=== PATIENT | male | born 1930 | race Caucasian/White ===

== ENCOUNTER → 2016-06-21 | Day surgery (SDC) | payer BC ==
[2016-06-14 07:35] VITALS: BMI 24.0
[~2016-06-21] VITALS: Ht 177.8 cm; Wt 77.3 kg
[~2016-06-21] MED LIST: ASPCH81 PO; CHOL100010 PO; LIDOCAINE HCL 2% 2 ML VIAL (20MG/ML) ONE; METO25TA3 PO; MIDAZOLAM HCL 1 MG/ML 2ML VIAL ONE; ONDANSETRON INJ 2 MG/ML 2 ML VIAL ONE; PRLSR20 PO; PROPOFOL IV EMULSION 10 MG/ML 20 ML VIAL IV ONE; PRVC10 PO; SODIUM CHLORIDE 0.9% 500ML 500 ML IV ONE
[2016-06-21 11:11] VITALS: Ht 177.8 cm; Wt 77.3 kg
--- NOTE | 2016-06-21 11:22 | Endo History and Physical ---
History & Physical Date of Service: Jun 21, 2016. Chief Complaint: change in bowel habits Referring Physician: Dr. Corona History of Present Illness 86 yo CM who presents for colonoscopy secondary to change in bowel habits. Past Surgical History Hx Cardiac Surgery: Yes (HEART CATH X 2 (1 STENT PLACED)) Hx Internal Defibrillator: No Hx Pacemaker: No Hx Abdominal Surgery: No Hx of Implantable Prosthesis: No Hx Post-Op Nausea and Vomiting: No Hx Cancer Surgery: No Hx Thoracic Surgery: No Hx Orthopedic: Yes (RT INDEX FINGER AMPUTATION (INJURY), LEFT KNEE ARTHROSCOPY , RT HAND) Hx Urinary Tract Surgery: No Family History Colon CA Social History Smoking Status: Former Smoker Hx Substance Use: No Hx Alcohol Use: Yes (1 BEER DAILY) Allergies Coded Allergies: No Known Allergies (Verified , 06/14/16) Current Medications Reported Home Medications Medications Dose Route/Sig Max Daily Dose Days Date Category Prilosec (Omeprazole) 20 Mg Capcr 20 Mg PO QAM 06/14/16 Reported Vitamin D (Cholecalciferol) 1,000 Unit Tab 1 Tab PO QAM 06/14/16 Reported Pravastatin Sodium (Pravastatin Sod) 10 Mg Tab 1 Tab PO HS 06/14/16 Reported Toprol-Xl (Metoprolol Succinate) 25 Mg Tabcr 25 Mg PO QAM 06/14/16 Reported Aspirin Tab-Chewable * (Aspirin) 81 Mg Chew 81 Mg PO QAM 07/06/10 Reported Vital Signs Weight (Kilograms): 77.27 Height (Feet): 5 Height (Inches): 10 Physical Exam General Appearance: WD/WN, no apparent distress Respiratory/Chest: Auscultation: breath sounds normal Cardiovascular: Heart Auscultation: RRR Abdomen: Bowel Sounds: normal Inspection & Palpation: soft, non-distended, no tenderness, guarding & rebound Assessment and Plan Assessment: 86 yo CM who presents for colonoscopy secondary to change in bowel habits. Plan: Proceed with colonoscopy.
--- NOTE | 2016-06-21 12:28 | Discharge Instructions ---
Endoscopy Patient Instructions Date / Procedure(s) Performed Jun 21, 2016. Colonoscopy Allergy Information Coded Allergies: No Known Allergies (Verified , 06/14/16) Discharge Date / Findings Jun 21, 2016. Colon polyp Diverticulosis Internal hemorrhoids Medication Instructions OK to resume all medications today as prescribed Reported Home Medications Medications Dose Route/Sig Max Daily Dose Days Date Category Prilosec (Omeprazole) 20 Mg Capcr 20 Mg PO QAM 06/14/16 Reported Vitamin D (Cholecalciferol) 1,000 Unit Tab 1 Tab PO QAM 06/14/16 Reported Pravastatin Sodium (Pravastatin Sod) 10 Mg Tab 1 Tab PO HS 06/14/16 Reported Toprol-Xl (Metoprolol Succinate) 25 Mg Tabcr 25 Mg PO QAM 06/14/16 Reported Aspirin Tab-Chewable * (Aspirin) 81 Mg Chew 81 Mg PO QAM 07/06/10 Reported Provider Instructions Activity Restrictions - No exercising or heavy lifting for 24 hours. - Do not drink alcohol the day of the procedure. - Do not drive a car or operate machinery until the day after the procedure. - Do not make any important decisions or sign important papers in 24 hours after the procedure. Following Day: - Return to full activity which may include returning to work/school. Diet Start your diet with liquids and light foods (jello, soup, juice, toast). Then eat your usual diet if not nauseated. Treatment For Common After Affects For mild abdominal pain, bloating, or excessive gas: - Rest - Eat lightly - Lie on right side Follow-Up Information Follow-up with Dr. Corona as scheduled Anesthesia Information What You Should Know You have had a procedure that required some medicine to reduce anxiety and discomfort. This treatment is called moderate sedation. After receiving the treatment, you may be sleepy, but you will be able to breathe on your own. The effects of the treatment may last for several hours. Follow these instructions along with Activity/Diet recommendations noted above: * Do NOT do anything where dizziness or clumsiness would be dangerous. * Rest quietly at home today, then you can be up and about tomorrow. * Have a responsible person stay with you the rest of today. * You may have had an I.V. today. If so, you may take the dressing off later today. Recommendations Call your doctor if: * Trouble breathing * Continuous vomiting for more than 24 hours * Temperature above 101 degrees * Severe abdominal pain or bloating * Pain not relieved by pain medicine ordered * There is increased drainage or redness from any incision * A large amount of rectal bleeding greater than 2-3 tablespoons. (If you had a polyp/s removed or have hemorrhoids, a small amount of blood - from the rectum is to be expected.) * You have any unanswered questions or concerns. IN THE EVENT OF A SERIOUS EMERGENCY, GO TO THE NEAREST EMERGENCY ROOM Your discharge instructions were prepared by provider Víctor Osuna. Patient Instructions Signature Page Hesham Jo Patient (or Guardian) Signature/Date: I have read and understand the instructions given to me by my caregivers. Caregiver/RN/Doctor Signature/Date: The above-named patient and/or guardian has received patient instructions on this date. + Original Patient Signature Page (only) stays with chart. Please make copy for patient.
--- NOTE | 2016-06-21 12:42 | GI REPORT ---
Procedure Date: 06/21/2016 11:48 AM Procedure: Colonoscopy Indications: Change in bowel habits Medicines: Monitored Anesthesia Care Complications: No immediate complications. Estimated Blood Loss: Estimated blood loss: none. Procedure: Pre-Anesthesia Assessment: - Prior to the procedure, a History and Physical was performed, and patient medications and allergies were reviewed. The patient's tolerance of previous anesthesia was also reviewed. The risks and benefits of the procedure and the sedation options and risks were discussed with the patient. All questions were answered, and informed consent was obtained. Prior Anticoagulants: The patient has taken aspirin, last dose was 2 days prior to procedure. ASA Grade Assessment: III - A patient with severe systemic disease. After reviewing the risks and benefits, the patient was deemed in satisfactory condition to undergo the procedure. After I obtained informed consent, the scope was passed under direct vision. Throughout the procedure, the patient's blood pressure, pulse, and oxygen saturations were monitored continuously. The Scope was introduced through the anus and advanced to the cecum, identified by appendiceal orifice and ileocecal valve. The colonoscopy was performed without difficulty. The patient tolerated the procedure well. The quality of the bowel preparation was good. The ileocecal valve, appendiceal orifice, and rectum were photographed. Findings: A 6 mm polyp was found in the transverse colon. The polyp was sessile. The polyp was removed with a hot snare. Resection and retrieval were complete. Multiple small-mouthed diverticula were found in the sigmoid colon. Non-bleeding internal hemorrhoids were found during retroflexion. The hemorrhoids were small. Impression: - One 6 mm polyp in the transverse colon, removed with a hot snare. Resected and retrieved. - Diverticulosis in the sigmoid colon. - Non-bleeding internal hemorrhoids. Recommendation: - Resume previous diet. - Continue present medications. - Await pathology results. - Repeat colonoscopy for surveillance based on pathology results. - Return to primary care physician as previously scheduled. Víctor Osuna, DO 06/21/2016 12:42:01 PM This report has been signed electronically. Note Initiated On: 06/21/2016 11:48 AM I attest to the content of the Intraoperative Record and orders documented therein, exceptions below
[2016-06-21 13:09] VITALS: BP 143/77; PULSE 56; O2SAT 97
--- NOTE | 2016-06-21 13:57 | Anesthesiology Progress Note ---
Anesthesia Post Op Note Date & Time Jun 21, 2016 at 13:57 Vital Signs Pain Intensity: 0 Vital Signs Past 12 Hours Date Time Temp Pulse Resp B/P Pulse Ox O2 Delivery O2 Flow Rate FiO2 06/21/16 13:09 56 20 143/77 97 Room Air 06/21/16 12:52 54 20 120/68 97 Room Air 06/21/16 12:35 64 20 95/63 98 Room Air 06/21/16 11:20 36.5 70 20 140/87 98 Room Air Notes Mental Status: alert / awake / arousable, participated in evaluation Pt Amnestic to Procedure: Yes Nausea / Vomiting: adequately controlled Pain: adequately controlled Airway Patency, RR, SpO2: stable & adequate BP & HR: stable & adequate Hydration State: stable & adequate Anesthetic Complications: no major complications apparent
== END | disposition home or self-care (01) ==
LOC: C.GI 10:55
PROVIDERS: ATTEND Internal Medicine
DX: R19.4 Change in bowel habit (principal); D12.3 Benign neoplasm of transverse colon; K57.30 Diverticulosis of large intestine without perforation or abscess without bleeding; K64.8 Other hemorrhoids; Z80.0 Family history of malignant neoplasm of digestive organs; Z95.5 Presence of coronary angioplasty implant and graft; Z98.890 Other specified postprocedural states; Z87.891 Personal history of nicotine dependence; Z79.82 Long term (current) use of aspirin

== ENCOUNTER → 2016-09-06 | Outpatient (CLI) | payer BC ==
[~2016-09-06] MED LIST changes: -LIDOCAINE HCL 2% 2 ML VIAL (20MG/ML) ONE; -MIDAZOLAM HCL 1 MG/ML 2ML VIAL ONE; -ONDANSETRON INJ 2 MG/ML 2 ML VIAL ONE; -PROPOFOL IV EMULSION 10 MG/ML 20 ML VIAL IV ONE; -SODIUM CHLORIDE 0.9% 500ML 500 ML IV ONE
[2016-09-06 12:19] LABS: BASO % 0.3 %; BASO ABS # 0.02 K/uL (0-0.2); COMPLETE YES; EOS % 3.1 %; HEMATOCRIT 45.1 % (42-52); IG% 0.2 %; LYMPH % 33.8 %; LYMPH ABS # 1.97 K/uL (1.2-3.4); MEAN CELL VOLUME 98.3 fL (80-100); MEAN CORPUSCULAR HGB CONC 32.6 g/dl (32-36); MEAN PLATELET VOLUME 10.4 fL (7.4-10.4); MONO % 11.5 %; NEUT % 51.1 %; PLATELET COUNT 126 K/uL (130-400); RED BLOOD COUNT 4.59 M/uL (4.7-6.1); WHITE BLOOD COUNT 5.82 K/uL (4.8-10.8)
[2016-09-06 12:33] LABS: URINE APPEARANCE CLEAR (CLEAR); URINE BILIRUBIN NEG (NEG); URINE COLOR YELLOW; URINE NITRITE NEG (NEG); URINE SPECIFIC GRAVITY 1.017 (1.000-1.030); UROBILINOGEN NEG (NEG); ZZUR CULT IF INDIC CLEAN CATCH NO
[2016-09-06 12:39] LABS: MANUAL MICROSCOPIC REQUIRED? NO; REVIEW REQ? NO
[2016-09-06 13:19] LABS: ALT/SGPT 20 U/L (12-78); AST/SGOT 15 U/L (15-37); BLOOD UREA NITROGEN 19 mg/dl (7-18); BUN/CREATININE RATIO 20.7 (10-20); CALCIUM 8.6 mg/dl (8.5-10.1); CARBON DIOXIDE 27 mmol/L (21-32); CHLORIDE 109 mmol/L (98-107); CHOLESTEROL 157 mg/dl (0-200); CREATININE 0.93 mg/dl (0.60-1.40); GLUCOSE 92 mg/dl (70-99); SODIUM 144 mmol/L (136-145)
[2016-09-06 13:31] LABS: ALB/GLOB RATIO 1.1 (0.9-2); ALKALINE PHOSPHATASE 68 U/L (45-117); HDL CHOLESTEROL 53 mg/dl; LDL CHOLESTEROL CALCULATED 90 mg/dl; TRIGLYCERIDES 69 mg/dl (0-150); VERY LOW DENSITY LIPOPROT CALC 14 mg/dl
--- NOTE | 2016-09-11 10:32 | CODING QUERY MEDICAL NECESSITY ---
SUPPORTING DIAGNOSIS NEEDED Dr. Corona, A supporting diagnosis is required for the test/procedure performed on this patient in order for us to be reimbursed by the patient's insurance. Please provide a supporting diagnosis for the following test/procedure listed below next to the test name along with your signature. *If there is no additional diagnosis for this patient that would support the following test/procedure please document that below next to the test/procedure. Test(s)/Procedure(s) that require a supporting diagnosis: * ([id number]) VITAMIN D ASSAY DIAGNOSIS: DATE OF SERVICE: 09/06/16 Provider Signature: Date: Thank you Sriram Schultz [facility] Information Management Once completed, please kindly fax back to [phone] For questions please call [phone]
== END | disposition home or self-care (01) ==
LOC: C.LABBFT 07:50
PROVIDERS: ATTEND Internal Medicine
DX: R41.3 Other amnesia (principal); I25.10 Atherosclerotic heart disease of native coronary artery without angina pectoris

== ENCOUNTER 2017-07-31 04:53 | Day surgery (SDC) | payer BC ==
[2017-07-20 08:52] VITALS: BMI 25.0
--- NOTE | 2017-07-20 09:25 | PAT Medication Instructions ---
Service Date Jul 20, 2017. Current Home Medication List Aspirin (Aspirin Ec), 81 MG PO BID Cholecalciferol (Vitamin D), 2,000 UNITS PO QAM Fish Oil (Durham-3), 1 CAP PO QAM Lutein-Zeaxanthin (Lutein), 1 TAB PO QAM Metoprolol Succ (Toprol Xl) (Toprol-Xl), 25 MG PO QAM Mometasone Furoate (Nasal) (Mometasone Furoate), 2 SPRAYS INTNAS QAM Omeprazole (Prilosec), 20 MG PO QAM PRN for PRN Pravastatin Sod (Pravastatin Sodium), 1 TAB PO HS Medication Instructions For Your Scheduled Surgery -Check with your surgeon and shade maker for instructions for: Aspirin (Aspirin Ec), 81 MG PO BID - Hold the following medications starting tomorrow: Fish Oil (Durham-3), 1 CAP PO QAM Lutein-Zeaxanthin (Lutein), 1 TAB PO QAM - Hold the following medications the morning of surgery: Cholecalciferol (Vitamin D), 2,000 UNITS PO QAM - Take the following medications the morning of surgery with a sip of water: Metoprolol Succ (Toprol Xl) (Toprol-Xl), 25 MG PO QAM Mometasone Furoate (Nasal) (Mometasone Furoate), 2 SPRAYS INTNAS QAM Omeprazole (Prilosec), 20 MG PO QAM PRN for PRN (if needed) - Take the following medications as scheduled the night before surgery: Omeprazole (Prilosec), 20 MG PO QAM PRN for PRN (if needed) Pravastatin Sod (Pravastatin Sodium), 1 TAB PO HS If you have any questions please call us at [phone] or [phone] or [phone]
--- NOTE | 2017-07-20 09:59 | DIAGNOSTIC IMAGING REPORT ---
TWO VIEW CHEST CLINICAL HISTORY: Preoperative examination. FINDINGS: PA and lateral chest radiographs are obtained. No prior studies are available for comparison at the time of dictation. The PA view is degraded by patient rotation The heart is mildly enlarged and there is atherosclerotic calcification of the thoracic aorta. Emphysematous changes suspected. Interstitial thickening is likely chronic. There is bibasilar atelectasis. No airspace consolidation or pleural effusion is identified. There is no pneumothorax. The skeletal structures are osteopenic. The bony thorax appears intact. Degenerative change is seen throughout the thoracic spine. There are healed left-sided rib fractures. IMPRESSION: Cardiomegaly and suspect emphysema. There is no acute cardiopulmonary abnormality. Electronically signed by: Layton Javier M.D. 07/20/2017 9:58 AM Dictated Date/Time: 07/20/2017 9:56 AM
[2017-07-20 10:07] LABS: BASO % 0.4 %; BASO ABS # 0.02 K/uL (0-0.2); EOS % 3.5 %; EOS ABS # 0.17 K/uL (0-0.5); HEMATOCRIT 42.8 % (42-52); HEMOGLOBIN 14.5 g/dL (14.0-18.0); LYMPH % 30.2 %; LYMPH ABS # 1.46 K/uL (1.2-3.4); MEAN CELL VOLUME 97.7 fL (80-100); MEAN CORPUSCULAR HEMOGLOBIN 33.1 pg (25-34); MEAN CORPUSCULAR HGB CONC 33.9 g/dl (32-36); MONO % 9.9 %; MONO ABS # 0.48 K/uL (0.11-0.59); NEUT ABS # 2.71 K/uL (1.4-6.5); PLATELET COUNT 113 K/uL (130-400); RED CELL DISTRIBUTION WIDTH CV 13.9 % (11.5-14.5); RED CELL DISTRIBUTION WIDTH SD 49.6 fL (36.4-46.3); WHITE BLOOD COUNT 4.84 K/uL (4.8-10.8)
[2017-07-20 10:18] LABS: CREATININE 0.83 mg/dl (0.60-1.40)
[2017-07-20 10:19] LABS: CALCIUM 8.7 mg/dl (8.5-10.1); POTASSIUM 4.3 mmol/L (3.5-5.1)
[~2017-07-31] VITALS: Ht 177.8 cm; Wt 79.7 kg
[~2017-07-31 04:53] MED LIST changes: -ASPCH81 PO; +ASPI81TA28 PO; +LUTE15CA PO; +MOME6000 INTNAS; +OMEG10007 PO
[2017-07-31 05:50] VITALS: BP 133/70; PULSE 55; TEMP 36.5; O2SAT 97; Ht 177.8 cm; Wt 79.7 kg
[2017-07-31] MEDS ORDERED: LACTATED RINGER'S 1000ML 1,000 ML IV SCH ×2 (06:00→07:55)
[2017-07-31] MEDS ORDERED: BUPIVACAINE 0.5 % 5 MG/1 ML MPF 30ML VIAL ONE (06:30)
--- NOTE | 2017-07-31 06:30 | History & Physical Bridge Note ---
H&P Re-Evaluation Bridge Note: I have examined the patient, reviewed the History & Physical and in the interval since the performance of the History & Physical I have noted the following changes of clinical significance: No changes noted pt marked, family at bedside all questions answered
[2017-07-31] MEDS ORDERED: BACITRACIN 50000 UNIT VIAL ONE (06:32)
[2017-07-31] MEDS ORDERED: LIDOCAINE HCL 2% 2 ML VIAL (20MG/ML) ONE (06:43)
[2017-07-31] MEDS ORDERED: DEXAMETHASONE SOD INJ 4 MG/ML VIAL ONE (06:43)
[2017-07-31] MEDS ORDERED: ONDANSETRON INJ 2 MG/ML 2 ML VIAL ONE (06:43)
[2017-07-31] MEDS ORDERED: FENTANYL CITRATE INJ 50 MCG/1 ML 2 ML VIAL ONE (06:43)
[2017-07-31] MEDS ORDERED: PROPOFOL IV EMULSION 10 MG/ML 20 ML VIAL IV ONE (06:43)
[2017-07-31] MEDS ORDERED: ACETAMINOPHEN 1000 MG/100 ML IV IV ONE (06:48)
[2017-07-31] MEDS ORDERED: GLYCOPYRROLATE INJ 0.2 MG/ML VIAL ONE (07:28)
[2017-07-31] MEDS ORDERED: ATROPINE SULFATE 0.1 MG/ML 5ML SYR IV PRN (07:30)
[2017-07-31] MEDS ORDERED: EpHEDrine SULFATE INJ 50 MG/ML AMP IV PRN (07:30)
[2017-07-31] MEDS ORDERED: ONDANSETRON INJ 2 MG/ML 2 ML VIAL IV PRN ×2 (07:30→08:00)
[2017-07-31] MEDS ORDERED: FENTANYL CITRATE INJ 50 MCG/1 ML 2 ML VIAL IV PRN (07:30)
[2017-07-31] MEDS ORDERED: PHENYLEPHRINE 100MCG/ML 5ML SYR ONE (07:37)
[2017-07-31] MEDS ORDERED: EpHEDrine SULFATE 50MG/5ML SYR ONE (07:37)
--- NOTE | 2017-07-31 07:49 | [facility] Post Operative Brief Note ---
Immediate Operative Summary Operative Date Jul 31, 2017. Pre-Operative Diagnosis Left Inguinal Hernia Post-Operative Diagnosis Left Inguinal Hernia direct and lipoma cord Procedure(s) Performed Open Left Direct Inguinal Hernia Repair with Mesh, Excision Lipoma of Cord Surgeon Dr. Andrea Kidd Consumer Relations Specialist Surgeon(s) Sriram Baldwin PA-C Estimated Blood Loss 2.5ml Findings See Below direct defect and lipoma cord Specimens Permanent Solution: A.) Lipoma of the Cord Anesthesia Type General
[2017-07-31] MEDS ORDERED: OXYC-57 PO (07:57)
--- NOTE | 2017-07-31 07:58 | Discharge Instructions ---
Discharge Instructions Date of Service Jul 31, 2017. Visit Reason for Visit: Left Inguinal Hernia Discharge Discharge Diagnosis / Problem: ingunal hernia repair Discharge Goals Goal(s): Decrease discomfort Activity Recommendations Activity Limitations: as noted below Lifting Limitations: no more than 10 pounds Shower/Bathe: tomorrow Driving or Machine Use: resume 3 days after discharge Anesthesia . Post Anesthesia Instructions: If you have had General Anesthesia or IV Sedation: * Do not drive today. * Resume driving when surgeon permits. * Do not make important decisions or sign legal documents today. * Call surgeon for: 1. Temperature elevations greater than 101 degrees F. 2. Uncontrollable pain. 3. Excessive bleeding. 4. Persistent nausea and vomiting. 5. Medication intolerance (nausea, vomiting or rash). * For nausea and vomiting use only clear liquids such as: tea, soda, bouillon until nausea subsides, then gradually increase diet as tolerated. * If you have any concerns or questions, call your surgeon's office. If physician is unavailable and it is an emergency, call 911 or go to the nearest emergency room. . Instructions / Follow-Up Instructions / Follow-Up Dr. Kidd in 1-2 weeks, call [phone] if you do not already have an appt or have any questions Ice left groin off and on alternating very 20 minutes until bedtime Diet Recommendations Recommended Home Diet: no limitations Procedures Procedures Performed: Open Left Direct Inguinal Hernia Repair with Mesh, Excision Lipoma of Cord Pending Studies Studies pending at discharge: no Medical Emergencies . Who to Call and When: Medical Emergencies: If at any time you feel your situation is an emergency, please call 911 immediately. . Non-Emergent Contact Non-Emergency issues call your: Surgeon Call Non-Emergent contact if: you have a fever, temperature is above 101.5, your pain is not controlled, wound has increased redness, you have any medication questions . . "Provider Documentation" section prepared by Sriram Baldwin. .
[2017-07-31] MEDS ORDERED: MoRPHine SULFATE 4 MG/ML 1 ML CARP\\VIAL IV PRN (08:00)
[2017-07-31] MEDS ORDERED: OXYCODONE/ACETAMINOPHEN 5-325 TAB PO PRN (08:00)
--- NOTE | 2017-07-31 08:20 | OPERATIVE REPORT ---
DATE OF OPERATION: 07/31/2017 SURGEON: Andrea Kidd MD. LOGGING TRACTOR OPERATOR SWAMP: Sriram Baldwin PA-C. PREOPERATIVE DIAGNOSIS: Symptomatic left inguinal hernia. POSTOPERATIVE DIAGNOSIS: Left direct inguinal hernia, lipoma of the cord. PROCEDURE: Left direct inguinal hernia repair and excision lipoma of the cord with Marlex mesh tension free repair. SUMMARY: The patient was brought into the operating room and left lower quadrant prepped with Betadine scrubbing solution and properly draped. Systemic antibiotics were given. We used 0.5% Marcaine to infiltrate preemptively 2 fingerbreadths medial anterior superior iliac crest. Incision was made parallel that are going deep into subcutaneous tissue onto the external oblique. The external oblique was opened along the course of its fibers. The nerve identified and retracted superiorly. It was a very thin nerve. Actually with even under stress, just getting it out of the way; therefore we would divide it. At this point, we elevated the cord and its structure over a [place] drain and identified the patient had a direct hernia that we freed from the cord. Also the patient had a long lipoma of the cord, which we resected at its base, ligating with 2-0 silk. There was no indirect hernia. We used 3-0 silk to close around the internal ring to get the direct defect out of the way. Then a sheet of Marlex mesh was brought onto the field and onlayed it, sutured with 2-0 nylon to the symphysis pubis, shelving portion of the inguinal ligament, superior to conjoined tendon to reconstruct the internal ring that could only accommodate the tip of a hemostat. The cord and its structures were then closed with mesh underneath the external oblique with 3-0 interrupted silk. Hemostasis was satisfactory. More local was used infiltrating the conjoined tendon superiorly and invading the wound. 2-0 Vicryl and kassie for skin edges. Dressing was applied. The procedure was tolerated well by the patient. Estimated blood loss approximately 2 mL. The patient was taken to recovery room in good condition. I attest to the content of the Intraoperative Record and any orders documented therein. Any exception s are noted below.
[2017-07-31 08:35] VITALS: BP 145/84; PULSE 70; TEMP 36.4; O2SAT 96
--- NOTE | 2017-07-31 08:56 | Anesthesiology Progress Note ---
Anesthesia Post Op Note Date & Time Jul 31, 2017 at 08:53 Vital Signs Pain Intensity: 0 Vital Signs Past 12 Hours Date Time Temp Pulse Resp B/P (MAP) Pulse Ox O2 Delivery O2 Flow Rate FiO2 07/31/17 08:35 36.5 07/31/17 08:25 63 16 145/84 97 Room Air 07/31/17 08:15 68 16 136/83 94 Room Air 07/31/17 08:05 65 16 128/74 98 Oxymask 7 07/31/17 07:55 36.4 67 16 127/67 98 Oxymask 7 07/31/17 05:50 36.5 55 18 133/70 (91) 97 Room Air Notes Mental Status: alert / awake / arousable, participated in evaluation Pt Amnestic to Procedure: Yes Nausea / Vomiting: adequately controlled Pain: adequately controlled Airway Patency, RR, SpO2: stable & adequate BP & HR: stable & adequate Hydration State: stable & adequate Anesthetic Complications: no major complications apparent Anesthetic Complications: patient with small bruising bilaterally along the nasal corner of both eyes, left greater than right. No pain or vision changes. Suspect this may be from the eye tape utilized during the surgery. (patient also with erythema around EKG sticker sites and is probably very sensitive to adhesives.) Discussed this with the patient, his and son. Should resolve without intervention. Family provided with instructions to call PAT if bruising doesn't improve or if they have any questions or concerns. All questions answered at this time.
[2017-07-31] MEDS ORDERED: OXYCODONE/ACETAMINOPHEN 5-325 TAB ONE (09:03)
[2017-07-31 09:05] VITALS: BP 153/79; PULSE 61; TEMP 36.4; O2SAT 95
[2017-07-31 09:35] VITALS: BP 142/74; PULSE 61; TEMP 36.4; O2SAT 95
== END 2017-07-31 09:55 | disposition home or self-care (01) ==
LOC: C.ACU 04:53
PROVIDERS: ATTEND Surgery
DX: K40.90 Unilateral inguinal hernia, without obstruction or gangrene, not specified as recurrent (principal); D17.6 Benign lipomatous neoplasm of spermatic cord; I25.10 Atherosclerotic heart disease of native coronary artery without angina pectoris; K57.90 Diverticulosis of intestine, part unspecified, without perforation or abscess without bleeding; Z98.890 Other specified postprocedural states; Z90.89 Acquired absence of other organs; M19.90 Unspecified osteoarthritis, unspecified site; Z79.82 Long term (current) use of aspirin; Z79.899 Other long term (current) drug therapy; Z88.8 Allergy status to other drugs, medicaments and biological substances; Z85.828 Personal history of other malignant neoplasm of skin; Z82.3 Family history of stroke; Z82.49 Family history of ischemic heart disease and other diseases of the circulatory system

== ENCOUNTER → 2017-11-21 | Outpatient (CLI) | payer BC ==
[~2017-11-21] MED LIST changes: +OXYC-57 PO
[2017-11-21 17:19] LABS: BASO % 0.5 %; BASO ABS # 0.03 K/uL (0-0.2); EOS % 2.9 %; EOS ABS # 0.19 K/uL (0-0.5); HEMATOCRIT 43.4 % (42-52); HEMOGLOBIN 14.5 g/dL (14.0-18.0); IG# 0.01 K/uL (0.00-0.02); LYMPH % 35.4 %; LYMPH ABS # 2.34 K/uL (1.2-3.4); MEAN CELL VOLUME 98.2 fL (80-100); MEAN CORPUSCULAR HEMOGLOBIN 32.8 pg (25-34); MEAN CORPUSCULAR HGB CONC 33.4 g/dl (32-36); MEAN PLATELET VOLUME 10.7 fL (7.4-10.4); MONO % 11.6 %; MONO ABS # 0.77 K/uL (0.11-0.59); NEUT % 49.4 %; NEUT ABS # 3.27 K/uL (1.4-6.5); PLATELET COUNT 110 K/uL (130-400); RED CELL DISTRIBUTION WIDTH CV 14.1 % (11.5-14.5); RED CELL DISTRIBUTION WIDTH SD 50.8 fL (36.4-46.3); WHITE BLOOD COUNT 6.61 K/uL (4.8-10.8)
[2017-11-22 06:04] LABS: HEMOGLOBIN A1C 5.5 % (4.5-5.6)
== END | disposition home or self-care (01) ==
LOC: C.LABBFT 15:03
PROVIDERS: ATTEND Internal Medicine
DX: R73.01 Impaired fasting glucose (principal); I25.10 Atherosclerotic heart disease of native coronary artery without angina pectoris; D69.6 Thrombocytopenia, unspecified; R63.4 Abnormal weight loss

== ENCOUNTER 2018-08-03 13:47 | Inpatient (IN) ==
[2018-08-03] MEDS ORDERED: SODIUM CHLORIDE 0.9% 1000ML 250 ML IV ONE (14:20)
--- NOTE | 2018-08-03 15:07 | CT Scan Report ---
CT head/brain wo con CLINICAL HISTORY: 88 years-old Male with headache. Acute headache with nausea and confusion TECHNIQUE: Multiple axial CT images of the head were obtained without contrast. A dose lowering tech nique was utilized adhering to the principles of ALARA. CT DOSE: 537.48 mGy.cm COMPARISON: CT head 07/16/2011. FINDINGS: There is no acute intracranial hemorrhage, midline shift or hydrocephalus. There is an extensive amou nt of edema noted throughout the right parietal and temporal lobes with a possible mass adjacent to t he atria right lateral ventricle measuring up to 2.5 x 2.1 cm. Bruno-white interface appears to be pre served. Age-related involutional changes. Mild degree of white matter hypodensities are suggestive of chronic microvascular ischemic changes. Study is mildly motion degraded. The calvarium is intact. The paranasal sinuses, mastoid air cells, and middle ear cavities are clear . IMPRESSION: 1. No acute intracranial hemorrhage, midline shift or hydrocephalus. 2. Extensive edema throughout the right parietal and temporal lobes, likely vasogenic associated with a probable mass adjacent to the atria right lateral ventricle measuring up to 2.5 cm. Primary glial neoplasm is the differential of exclusion. Correlation with contrast-enhanced MRI is needed to furthe r evaluate. The above report was generated using voice recognition software. It may contain grammatical, syntax o r spelling errors. Electronically signed by: nAtwan Becerril M.D. 08/03/2018 3:06 PM
--- NOTE | 2018-08-03 15:13 | XRay Report ---
XR chest 1V portable CLINICAL HISTORY: Sepsis COMPARISON STUDY: Chest radiograph July 20, 2017. FINDINGS: Lung volumes are normal. Mild bibasilar opacities favor atelectasis. There is no evidence f or pulmonary edema. Cardiomegaly is unchanged. Mediastinal contours are stable. IMPRESSION: 1. No acute cardiomegaly findings. 2. Mild cardiomegaly without evidence for pulmonary edema. 3. Bibasilar opacities favor atelectasis. Electronically signed by: Feliciano Nguyen M.D. 08/03/2018 3:11 PM
[2018-08-03 15:29] LABS: Partial Thromboplastin Ratio 0.9; Partial Thromboplastin Time 25.1 Seconds (21.0-31.0); Prothrombin Time 10.3 Seconds (9.0-12.0)
[2018-08-03 15:33] LABS: Basophils # (auto) 0.02 K/uL (0-0.2); Basophils % (auto) 0.3 %; Eosinophils # (auto) 0.04 K/uL (0-0.5); Eosinophils % (auto) 0.6 %; Hematocrit (blood only) 46.7 % (42-52); Hemoglobin 15.9 g/dL (14.0-18.0); Immature Granulocytes # (auto) 0.01 K/uL (0.00-0.02); Immature Granulocytes % (auto) 0.2 %; Lymphocytes # (auto) 1.05 K/uL (1.2-3.4); Lymphocytes % (auto) 15.9 %; Mean Corpuscular Volume 99.4 fL (80-100); Monocytes % (auto) 7.6 %; Neutrophils % (auto) 75.4 %; Platelet Count 123 K/uL (130-400); RDW Standard Deviation 50.8 fL (36.4-46.3); White Blood Count 6.62 K/uL (4.8-10.8)
[2018-08-03 15:43] LABS: Alanine Aminotransferase 21 U/L (12-78); Albumin Level 3.8 gm/dl (3.4-5.0); Aspartate Aminotransferase 18 U/L (15-37); BUN Creatinine Ratio 17.2 (10-20); Blood Urea Nitrogen 15 mg/dl (7-18); Calcium 8.9 mg/dl (8.5-10.1); Carbon Dioxide 29 mmol/L (21-32); Chloride 104 mmol/L (98-107); Creatinine Clr Calc Pharmacy 62.1 ml/min; Est GFR (African American) 90.6; Est GFR (Non-African American) 78.1; Glucose 102 mg/dl (70-99); Sodium 137 mmol/L (136-145)
[2018-08-03] MEDS ORDERED: DEXAMETHASONE **PF** 10 MG in DEXTROSE 5% 25 ML IV STA (16:01)
[2018-08-03 16:07] LABS: Albumin Globulin Ratio 1.1 (0.9-2); Alkaline Phosphatase 75 U/L (45-117); Bilirubin,Total 0.5 mg/dl (0.2-1); Globulin 3.6 gm/dl (2.5-4.0); Total Protein 7.4 gm/dl (6.4-8.2); Troponin I < 0.015 ng/ml (0-0.045)
[2018-08-03] MEDS ORDERED: KETOROLAC TROMETHAMINE 15 MG/ML VIAL IV ONE (16:10)
[2018-08-03] MEDS ORDERED: DEXAMETHASONE **PF** INJ 10 MG/ML VIAL ONE (16:17)
--- NOTE | 2018-08-03 16:38 | Emergency Department Note ---
Entered by Mykel White acting as a scribe for Neil Jhaveri MD History of Present Illness General Chief complaint: Headache Stated complaint: HEADACHE,NAUSEA,LOST HIS 10 DAYS AGO Time Seen by Provider: 08/03/18 14:10 Source: patient and family History of Present Illness Provider complaint: Headache Onset (ago): day(s) (today around 0530) Location: head Pain Consistency: + constant Maximum Pain Intensity: 10 Quality: + other (headache) Associated symptoms: + denies other symptoms (numbness, changes in vision), + cough, + fever/chills (fever was subjective), + nausea/vomiting (+nausea, - vomiting) and + other (body aches, fatigue); no chest pain, no shortness of breath and no weakness The patient is an 88 year old male who presents to the Emergency Room with complaints of a constant headache that started around 0530 this morning when he woke up. The patient states that he felt feverish this morning and has been experiencing chills, nausea, and body aches. He also states he has had a cough and sinus drainage. He denies any numbness or weakness, chest pain, shortness of breath, or changes in vision. The patient's family states that the patient is typically very energetic and "sharp," but report that the patient has been more fatigued and slowed down over the past few days. They note that the patient has been having trouble walking and has been slow in responding verbally. The patient admits to a history of cardiac disease and family notes that the patient has a surgical history of 2 angioplasties. He denies a history of diabetes. He a lso denies being prescribed any blood thinners. Home Medications Home Medications Medication Instructions Recorded Confirmed Type aspirin 81 mg PO DAILY 08/03/18 08/03/18 History cholecalciferol (vitamin D3) 2,000 unit PO DAILY 08/03/18 08/03/18 History [Vitamin D3] lutein 6 mg PO DAILY 08/03/18 08/03/18 History metoprolol succinate 25 mg PO DAILY 08/03/18 08/03/18 History omega 8-xzl-hru-fish oil [Fish Oil] 1 cap PO DAILY 08/03/18 08/03/18 History omeprazole 20 mg PO DAILY 03/30/19 03/30/19 History pravastatin 10 mg PO HS 08/03/18 08/03/18 History Allergies Allergy/AdvReac Type Severity Reaction Status Date / Time Ndrcbie-Keo-Lqm Reductase Allergy Unknown CRESTOR,LIPITOR,ZOCOR-MUSCLE Verified 08/03/18 14:34 Inhibitor ACHES Past Med/Surg History Medical History Heart disease (Chronic) CAD (coronary artery disease) Hyperlipemia Hypertension Surgical History Stented coronary artery (Chronic) H/O angioplasty (Resolved) Family History Mother Colorectal cancer Social History Preferred Language: Armenian Communication Ability: Effective Communication Spec Required: No Beliefs That Will Affect Care: None Current Living Situation: Alone Other Information That Helps Us Care for You: No Feels Safe at Home: Yes Safety Concerns: Feels Safe At This Time Smoking Status: Former smoker Hx Alcohol Use: Yes Hx Substance Use: No Review of Systems See HPI for pertinent positives & negatives. and A total of 10 systems reviewed and were otherwise negative Physical Exam Vital Signs Vital Signs - 24 hr 08/03/18 13:48 08/03/18 14:18 08/03/18 14:25 Temperature 36.5 C Temperature Source Oral Sepsis Recent Fever Within 48 Hours No Sepsis New/Unexplained Change in Mental Status No Sepsis Action Taken by Nursing No Action Required Pulse Rate 62 Pulse Rate [Finger] 62 Pulse Rhythm [Finger] Pulse Strength [Finger] Respiratory Rate 20 14 Respiratory Effort / Characteristics Respiratory Depth Respiratory Pattern Blood Pressure Blood Pressure [Right Arm] 164/90 H Blood Pressure Mean [Right Arm] 114 Blood Pressure Position [Right Arm] Pulse Oximetry 97 98 98 Oxygen Delivery Method Room Air Room Air Room Air 08/03/18 15:25 08/03/18 16:23 08/03/18 17:22 Temperature Temperature Source Sepsis Recent Fever Within 48 Hours Sepsis New/Unexplained Change in Mental Status Sepsis Action Taken by Nursing Pulse Rate Pulse Rate [Finger] 67 68 67 Pulse Rhythm [Finger] Pulse Strength [Finger] Respiratory Rate 17 18 18 Respiratory Effort / Characteristics Respiratory Depth Respiratory Pattern Blood Pressure Blood Pressure [Right Arm] 174/91 H 164/82 H 155/85 H Blood Pressure Mean [Right Arm] 118 109 108 Blood Pressure Position [Right Arm] Pulse Oximetry 94 95 94 Oxygen Delivery Method Room Air Room Air Room Air 08/03/18 17:53 08/03/18 18:26 Temperature 37.0 C Temperature Source Oral Sepsis Recent Fever Within 48 Hours Sepsis New/Unexplained Change in Mental Status Sepsis Action Taken by Nursing Pulse Rate 69 Pulse Rate [Finger] 73 Pulse Rhythm [Finger] Regular Pulse Strength [Finger] Normal Respiratory Rate 22 16 Respiratory Effort / Characteristics Non-Labored Spontaneous Respiratory Depth Normal Respiratory Pattern Regular Blood Pressure 152/81 H Blood Pressure [Right Arm] 175/78 H Blood Pressure Mean [Right Arm] 110 Blood Pressure Position [Right Arm] Lying Pulse Oximetry 96 92 Oxygen Delivery Method Room Air Room Air General: Non-ill appearing older male in no acute distress. Answers questions appropriately. Normal speech. No aphasia. HEENT: Normal cephalic atraumatic. Pupils are equal round and reactive to light. Extraocular movements are intact. Oropharynx is pink with moist mucous membranes. No swelling of the mouth lips or tongue. Neck: Supple with a midline trachea. No meningeal signs or stiffness, no JVD or bruits. No Stridor. Chest: Clear to auscultation bilaterally. No wheezes or rhonchi. No increased work of breathing. Heart: regular rate and rhythm. Abdomen: Soft nontender, nondistended without rebound guarding or rigidity. Extremities: No cyanosis clubbing or edema. No calf tenderness or assymetry Spine/Back. Non tender to palpation. No CVA tenderness Skin: Good turgor without rashes. Neurologic exam: Cranial nerves two through 12 are intact. Motor and sensation are intact and symmetrical throughout. Course 1411: Past medical records reviewed. The patient was evaluated in room A4B, and a complete history and physical examination were performed. 1515: I discussed the results of the CT scan with the patient and family at bedside and explained that the patient likely has a brain tumor. I recommended inpatient stay and the family, as well as the patient, were agreeable. 1554: I reviewed the patient's case with Dr. Pierce, [facility] Hospitalist. He will evaluate the patient for further management. 1610: I reevaluated the patient and ordered the patient steroids as well as Toradol for pain. Consultations Consultation #1: Dr. Pierce, [facility] Hospitalist Time: 15:54 Administered Medications Gadobutrol (Gadavist 30ml) 7 ml IV ONCE PRN PRN Reason: Interaction Checking Stop: 08/07/18 21:25 Last Admin: 08/03/18 21:27 Dose: 7 ml Documented by: [id number] Dexamethasone 4 mg/ Syringe 1 mls @ 1 mls/min IV Q4H SIRI Stop: 09/02/18 19:59 Last Admin: 08/03/18 21:50 Dose: 1 mls/min Documented by: [id number] Ketorolac Tromethamine (Toradol) 15 mg IV Q6H PRN PRN Reason: Pain Stop: 08/08/18 20:36 Last Admin: 08/03/18 21:49 Dose: 15 mg Documented by: [id number] Pravastatin Sodium (Pravachol) 10 mg PO HS SIRI Stop: 09/02/18 20:59 Last Admin: 08/03/18 21:50 Dose: 10 mg Documented by: [id number] Discontinued Medications Dexamethasone Sodium Phosphate (Decadron Pf) Confirm Administered Dose 10 mg .ROUTE .STK-MED ONE Stop: 08/03/18 16:18 Last Admin: 08/03/18 16:19 Dose: 10 mg Documented by: [id number] Sodium Chloride (Nss 1000ml) 250 mls @ 999 mls/hr IV .Q16M ONE Stop: 08/03/18 14:35 Last Infusion: 08/03/18 15:41 Dose: 0 mls/hr Documented by: [id number] Admin: 08/03/18 15:24 Dose: 999 mls/hr Documented by: [id number] Dexamethasone Sodium Phosphate (10 mg/ Dextrose) 26 mls @ 100 mls/hr IV NOW STA Stop: 08/03/18 16:16 Last Admin: 08/03/18 16:19 Dose: Not Given Documented by: [id number] Ketorolac Tromethamine (Toradol) 15 mg IV NOW ONE Stop: 08/03/18 16:11 Last Admin: 08/03/18 16:19 Dose: 15 mg Documented by: [id number] Medical Decision Making Differential Diagnosis Differential: Intracranial process, infection, influenza, cardiac disease, intracranial hemorrhage, electrolyte metabolic abnormality. Medical Records Attestation: I reviewed the patient's medical records. Home Medications Current Medication List: was personally reviewed by me Laboratory Data Attestation: I reviewed the patient's lab results. Result diagrams: 08/03/18 14:58 08/03/18 14:58 Lab Results 08/03/18 08/03/18 08/03/18 Range/Units 14:36 14:58 14:58 WBC 6.62 (4.8-10.8) K/uL RBC 4.70 (4.7-6.1) M/uL Hgb 15.9 (14.0-18.0) g/dL Hct 46.7 (42-52) % MCV 99.4 (80-100) fL MCH 33.8 (25-34) pg MCHC 34.0 (32-36) g/dL RDW Std Deviation 50.8 H (36.4-46.3) fL RDW Coeff of Marck 14.0 (11.5-14.5) % Plt Count 123 L (130-400) K/uL MPV 10.0 (7.4-10.4) fL Immature Gran % (Auto) 0.2 % Neut % (Auto) 75.4 % Lymph % (Auto) 15.9 % Wright % (Auto) 7.6 % Eos % (Auto) 0.6 % Baso % (Auto) 0.3 % Immature Gran # (Auto) 0.01 (0.00-0.02) K/uL Neut # (Auto) 5.00 (1.4-6.5) K/uL Lymph # (Auto) 1.05 L (1.2-3.4) K/uL Wright # (Auto) 0.50 (0.11-0.59) K/uL Eos # (Auto) 0.04 (0-0.5) K/uL Baso # (Auto) 0.02 (0-0.2) K/uL PT 10.3 (9.0-12.0) Seconds INR 1.0 (0.9-1.1) APTT 25.1 (21.0-31.0) Seconds PTT Ratio 0.9 Sodium (136-145) mmol/L Potassium (3.5-5.1) mmol/L Chloride (98-107) mmol/L Carbon Dioxide (21-32) mmol/L Anion Gap (3-11) BUN (7-18) mg/dl Creatinine (0.6-1.4) mg/dl Est Cr Clr Drug Dosing ml/min Est GFR ( Amer) Est GFR (Non-Af Amer) BUN/Creatinine Ratio (10-20) Glucose (70-99) mg/dl Lactate (0.4-2.0) mmol/L Calcium (8.5-10.1) mg/dl Total Bilirubin (0.2-1) mg/dl AST (15-37) U/L ALT (12-78) U/L Alkaline Phosphatase (45-117) U/L Troponin I (0-0.045) ng/ml Total Protein (6.4-8.2) gm/dl Albumin (3.4-5.0) gm/dl Globulin (2.5-4.0) gm/dl Albumin/Globulin Ratio (0.9-2) Procalcitonin (0-0.5) ng/ml Urine Color Urine Appearance (Clear) Urine pH (4.5-7.5) Ur Specific Mims (1.000-1.030) Urine Protein (Negative) Urine Glucose (UA) (Negative) Urine Ketones (Negative) Urine Blood (Negative) Urine Nitrite (Negative) Urine Bilirubin (Negative) Urine Urobilinogen (Negative) Ur Leukocyte Esterase (Negative) Urine WBC (Auto) (0-5) /hpf Urine RBC (Auto) (0-4) /hpf U Hyaline Cast (Auto) (0-5) /lpf U Epithel Cells (Auto) (0-5) /lpf Urine Bacteria (Auto) (Negative) Influenza Type A Ag Neg for Influ A (Neg) Influenza Type B Ag Neg for Influ B (Neg) 08/03/18 08/03/18 08/03/18 Range/Units 14:58 14:58 15:54 WBC (4.8-10.8) K/uL RBC (4.7-6.1) M/uL Hgb (14.0-18.0) g/dL Hct (42-52) % MCV (80-100) fL MCH (25-34) pg MCHC (32-36) g/dL RDW Std Deviation (36.4-46.3) fL RDW Coeff of Marck (11.5-14.5) % Plt Count (130-400) K/uL MPV (7.4-10.4) fL Immature Gran % (Auto) % Neut % (Auto) % Lymph % (Auto) % Wright % (Auto) % Eos % (Auto) % Baso % (Auto) % Immature Gran # (Auto) (0.00-0.02) K/uL Neut # (Auto) (1.4-6.5) K/uL Lymph # (Auto) (1.2-3.4) K/uL Wright # (Auto) (0.11-0.59) K/uL Eos # (Auto) (0-0.5) K/uL Baso # (Auto) (0-0.2) K/uL PT (9.0-12.0) Seconds INR (0.9-1.1) APTT (21.0-31.0) Seconds PTT Ratio Sodium 137 (136-145) mmol/L Potassium 4.0 (3.5-5.1) mmol/L Chloride 104 (98-107) mmol/L Carbon Dioxide 29 (21-32) mmol/L Anion Gap 4.0 (3-11) BUN 15 (7-18) mg/dl Creatinine 0.87 (0.6-1.4) mg/dl Est Cr Clr Drug Dosing 62.1 ml/min Est GFR ( Amer) 90.6 Est GFR (Non-Af Amer) 78.1 BUN/Creatinine Ratio 17.2 (10-20) Glucose 102 H (70-99) mg/dl Lactate 1.7 (0.4-2.0) mmol/L Calcium 8.9 (8.5-10.1) mg/dl Total Bilirubin 0.5 (0.2-1) mg/dl AST 18 (15-37) U/L ALT 21 (12-78) U/L Alkaline Phosphatase 75 (45-117) U/L Troponin I < 0.015 (0-0.045) ng/ml Total Protein 7.4 (6.4-8.2) gm/dl Albumin 3.8 (3.4-5.0) gm/dl Globulin 3.6 (2.5-4.0) gm/dl Albumin/Globulin Ratio 1.1 (0.9-2) Procalcitonin < 0.05 (0-0.5) ng/ml Urine Color Urine Appearance (Clear) Urine pH (4.5-7.5) Ur Specific Mims (1.000-1.030) Urine Protein (Negative) Urine Glucose (UA) (Negative) Urine Ketones (Negative) Urine Blood (Negative) Urine Nitrite (Negative) Urine Bilirubin (Negative) Urine Urobilinogen (Negative) Ur Leukocyte Esterase (Negative) Urine WBC (Auto) (0-5) /hpf Urine RBC (Auto) (0-4) /hpf U Hyaline Cast (Auto) (0-5) /lpf U Epithel Cells (Auto) (0-5) /lpf Urine Bacteria (Auto) (Negative) Influenza Type A Ag (Neg) Influenza Type B Ag (Neg) 08/03/18 Range/Units 18:05 WBC (4.8-10.8) K/uL RBC (4.7-6.1) M/uL Hgb (14.0-18.0) g/dL Hct (42-52) % MCV (80-100) fL MCH (25-34) pg MCHC (32-36) g/dL RDW Std Deviation (36.4-46.3) fL RDW Coeff of Marck (11.5-14.5) % Plt Count (130-400) K/uL MPV (7.4-10.4) fL Immature Gran % (Auto) % Neut % (Auto) % Lymph % (Auto) % Wright % (Auto) % Eos % (Auto) % Baso % (Auto) % Immature Gran # (Auto) (0.00-0.02) K/uL Neut # (Auto) (1.4-6.5) K/uL Lymph # (Auto) (1.2-3.4) K/uL Wright # (Auto) (0.11-0.59) K/uL Eos # (Auto) (0-0.5) K/uL Baso # (Auto) (0-0.2) K/uL PT (9.0-12.0) Seconds INR (0.9-1.1) APTT (21.0-31.0) Seconds PTT Ratio Sodium (136-145) mmol/L Potassium (3.5-5.1) mmol/L Chloride (98-107) mmol/L Carbon Dioxide (21-32) mmol/L Anion Gap (3-11) BUN (7-18) mg/dl Creatinine (0.6-1.4) mg/dl Est Cr Clr Drug Dosing ml/min Est GFR ( Amer) Est GFR (Non-Af Amer) BUN/Creatinine Ratio (10-20) Glucose (70-99) mg/dl Lactate (0.4-2.0) mmol/L Calcium (8.5-10.1) mg/dl Total Bilirubin (0.2-1) mg/dl AST (15-37) U/L ALT (12-78) U/L Alkaline Phosphatase (45-117) U/L Troponin I (0-0.045) ng/ml Total Protein (6.4-8.2) gm/dl Albumin (3.4-5.0) gm/dl Globulin (2.5-4.0) gm/dl Albumin/Globulin Ratio (0.9-2) Procalcitonin (0-0.5) ng/ml Urine Color Yellow Urine Appearance Cloudy H (Clear) Urine pH 8.0 H (4.5-7.5) Ur Specific Mims 1.016 (1.000-1.030) Urine Protein Negative (Negative) Urine Glucose (UA) Negative (Negative) Urine Ketones Negative (Negative) Urine Blood Negative (Negative) Urine Nitrite Negative (Negative) Urine Bilirubin Negative (Negative) Urine Urobilinogen Negative (Negative) Ur Leukocyte Esterase Negative (Negative) Urine WBC (Auto) 0 (0-5) /hpf Urine RBC (Auto) 0-4 (0-4) /hpf U Hyaline Cast (Auto) 0 (0-5) /lpf U Epithel Cells (Auto) 0-5 (0-5) /lpf Urine Bacteria (Auto) Negative (Negative) Influenza Type A Ag (Neg) Influenza Type B Ag (Neg) Imaging Data Radiologist's Impression: Radiology results as stated below per my review and the radiologist's interpretation: CT head/brain wo con CLINICAL HISTORY: 88 years-old Male with headache. Acute headache with nausea and confusion TECHNIQUE: Multiple axial CT images of the head were obtained without contrast. A dose lowering technique was utilized adhering to the principles of ALARA. CT DOSE: 537.48 mGy.cm COMPARISON: CT head 07/16/2011. FINDINGS: There is no acute intracranial hemorrhage, midline shift or hydrocephalus. There is an extensive amount of edema noted throughout the right parietal and temporal lobes with a possible mass adjacent to the atria right lateral ventricle measuring up to 2.5 x 2.1 cm. Bruno-white interface appears to be preserved. Age- related involutional changes. Mild degree of white matter hypodensities are suggestive of chronic microvascular ischemic changes. Study is mildly motion degraded. The calvarium is intact. The paranasal sinuses, mastoid air cells, and middle ear cavities are clear. IMPRESSION: 1. No acute intracranial hemorrhage, midline shift or hydrocephalus. 2. Extensive edema throughout the right parietal and temporal lobes, likely vasogenic associated with a probable mass adjacent to the atria right lateral ventricle measuring up to 2.5 cm. Primary glial neoplasm is the differential of exclusion. Correlation with contrast-enhanced MRI is needed to further evaluate. The above report was generated using voice recognition software. It may contain grammatical, syntax or spelling errors. Electronically signed by: Antwan Becerril M.D. 08/03/2018 3:06 PM XR chest 1V portable CLINICAL HISTORY: Sepsis COMPARISON STUDY: Chest radiograph July 20, 2017. FINDINGS: Lung volumes are normal. Mild bibasilar opacities favor atelectasis. There is no evidence for pulmonary edema. Cardiomegaly is unchanged. Mediastinal contours are stable. IMPRESSION: 1. No acute cardiomegaly findings. 2. Mild cardiomegaly without evidence for pulmonary edema. 3. Bibasilar opacities favor atelectasis. Electronically signed by: Feliciano Nguyen M.D. 08/03/2018 3:11 PM ECG Data Attestation: I personally reviewed and interpreted this ECG as follows: Indication: other (headache) Rate (beats per minute): 60 Rhythm: normal sinus Findings: + other (LVH); no acute ischemic change and no ectopy Comparison ECG Date: from (03/27/16) Change: no significant change Blood Pressure Blood Pressure Findings: Elevated blood pressure Blood Pressure Disposition: further management by hospitalist [facility] Narrative This patient comes in as described above. he was brought in by his family. He has complained of a headache but they say he has been less mentally sharp over the last several days. He has no neurologic deficits. The nurse came and got me to see him because the family was worried about stroke. I do not think he likely has a stroke as he has no acute neurologic deficits. He is also had a headache and may have had a fever at home was afebrile here. He has no meningeal signs or stiffness. IV access established and he was hydrated with IV normal saline. multiple blood testing was obtained his CAT scan shows a significant amount of edema in the brain with a likely mass likely consistent with a gliom a/brain tumor. He has no fever or inflammatory markers to suggest infection. He has no significant electrolyte metabolic abnormalities. He has nothing to suggest cardiac disease. He was given Decadron 10 mg IV. I do think he needs to be admitted for further workup including MRI and treatment and evaluation. Have consulted Dr. Pierce who is with the [facility]ist to see him for these measures. Impression & Plan Vasogenic edema, Brain tumor, Altered mental status, Headache Discharge Plan Visit Data *Final* Discharge Date/Time: 08/03/18 17:53 Chief Complaint: Headache Stated Complaint: HEADACHE,NAUSEA,LOST HIS 10 DAYS AGO ED Provider: Neil Jhaveri Discharge Problem: Vasogenic edema, Brain tumor, Altered mental status, Headache Patient Disposition: Admitted As Inpatient Discharge Instructions Interventions: ED Discharge Assessment Last Done: 08/03/18 17:53 The scribe's documentation has been prepared under my direction and personally reviewed by me in its entirety. I confirm that the note above accurately reflects all work, treatment, procedures, and medical decision making performed by me.
[2018-08-03] MEDS ORDERED: ACETAMINOPHEN 325 MG TAB PO PRN (18:25)
[2018-08-03 18:27] LABS: Appearance Urine Cloudy (Clear); Bacteria Urine Automated Negative (Negative); Bilirubin Urine Negative (Negative); Blood Urine Negative (Negative); Cast Urine Automated 0 /lpf (0-5); Color Urine Yellow; Epithelial Cell Urine Auto 0-5 /lpf (0-5); Glucose Urine UA Negative (Negative); Ketones Urine Negative (Negative); Leukocyte Esterase Urine Negative (Negative); Nitrite Urine Negative (Negative); Protein Urine Negative (Negative); RBC Urine Automated 0-4 /hpf (0-4); Specific Gravity Urine 1.016 (1.000-1.030); Urobilinogen Urine Negative (Negative); WBC Urine Automated 0 /hpf (0-5)
--- NOTE | 2018-08-03 19:08 | History & Physical Report ---
Date of Service August 03, 2018 Assessment & Plan (1) Brain tumor: CT head on 08/03 showed a 2.5 cm near the right lateral ventricle with a large amount of surrounding edema. Despite the read, the patient only has a moderate headache from this with some non-focal unsteadiness and mild confusion (though alert and easily able to answer questions for me on exam). - MRI brain with contrast - Dexamethasone - Hold heparin and any anti-platelet agents for concern for bleeding - Heme/onc consult, radiation oncology consult, and palliative care consult - Patient confirmed DNR status (2) CAD (coronary artery disease): S/p remote stents. No chest pain or - Hold ASA for risk of bleeding - Continue beta-lavon and statin (3) Hypertension: BP elevated to 180/80 inpatient. - Continue home beta-lavon - Monitor BP - Hydralazine PRN (4) Thrombocytopenia: Mild, chronic. Per outpatient PCP notes, baseline is ~110. - Monitor (5) DVT prophylaxis: SCDs - Heparin contraindicated with brain tumor History of Present Illness Primary Care Provider: Nomi Corona MD 88-year-old male with a history of hypertension and hyperlipidemia who presents with likely newly diagnosed brain cancer. Patient had been caring for his at home until recently when she of multiple myeloma. Family presented to the house for her and noted that the patient is much more confused than previously and that he has been having issues with his balance which was not previously an issue for him. Per patient, he presented this morning due to a severe, 10 out of 10, aching a forehead headache. Per patient, it feels r eminiscent of a migraine headache with nausea, emesis, vertigo, and photo- and phonophobia. Per patient, he has not noticed any focal weakness, any focal sensations changes, or any other neurologic symptoms. No fevers, chills, no shortness of breath, no cough, or any lung symptoms. In the ED, he was noted to have a likely primary brain tumor on CT with significant surrounding edema. Allergies Allergy/AdvReac Type Severity Reaction Status Date / Time Mzpllkk-Bfg-Sbx Reductase Allergy Unknown CRESTOR,LIPITOR,ZOCOR-MUSCLE Verified 08/03/18 14:34 Inhibitor ACHES Home Medications Home Medications Medication Instructions Recorded Confirmed Type aspirin 81 mg PO DAILY 08/03/18 08/03/18 History cholecalciferol (vitamin D3) 2,000 unit PO DAILY 08/03/18 08/03/18 History [Vitamin D3] lutein 6 mg PO DAILY 08/03/18 08/03/18 History metoprolol succinate 25 mg PO DAILY 08/03/18 08/03/18 History omega 8-zjx-zbx-fish oil [Fish Oil] 1 cap PO DAILY 08/03/18 08/03/18 History omeprazole 20 mg PO DAILY 08/03/18 08/03/18 History pravastatin 10 mg PO HS 08/03/18 08/03/18 History Past Med/Surg History Medical History Heart disease (Chronic) CAD (coronary artery disease) Hyperlipemia Hypertension Surgical History Stented coronary artery (Chronic) H/O angioplasty (Resolved) Family History Mother Colorectal cancer Social History Preferred Language: Burmese Communication Ability: Effective Gift Wrapper Required: No Beliefs That Will Affect Care: None Current Living Situation: Alone Other Information That Helps Us Care for You: No Feels Safe at Home: Yes Safety Concerns: Feels Safe At This Time Smoking Status: Former smoker Hx Alcohol Use: Yes Hx Substance Use: No Review of Systems Constitutional: no fever, no chills and no sweats Eyes: no diplopia Ear, Nose, Mouth, Throat: no ear trauma, no nasal discharge and no dental pain Respiratory: no cough, no chest congestion and no dyspnea Cardiovascular: no chest pain, no dyspnea on exertion, no palpitations and no syncope Gastrointestinal: no abdominal pain, no belching, no constipation, no diarrhea/loose stools, no blood in stools and no melena Musculoskeletal: no back pain, no joint pain and no muscle weakness Integumentary: no rash, no skin ulcer and no erythema Neurologic: + unsteadiness, + headache(s) and + confusion; no generalized weakness, no loss of sensation, no tingling, no numbness, no paresthesia, no lack of coordination, no abnormal movements and no dizziness Psychiatric: no depression and no anxiety Endocrine: no fatigue, no polydipsia and no polyphagia Physical Exam Vital Signs (Past 24 Hours): Last Vital Signs Temp 37.0 C 08/03/18 18:26 Pulse 73 08/03/18 18:26 Resp 16 08/03/18 18:26 BP 175/78 H 08/03/18 18:26 Pulse Ox 92 08/03/18 18:26 Constitutional: WD/WN, vitals as above Eyes: EOM intact bilaterally; no conjunctival abnormality ENMT: external ear and nose normal, oropharynx normal Neck: trachea midline, no thyromegaly normal visual inspection Respiratory: normal respiratory effort, lungs clear to auscultation no respiratory distress Cardiovascular: RRR, no murmur, no edema Gastrointestinal (Abdomen): Inspection/Auscultation: abdomen normal to inspection; abdomen not distended Musculoskeletal: no cyanosis or clubbing, extremities motor strength 5/5 Skin: no rashes, warm and dry Neurologic: moves all extremities and awake Speech / Cognition: normal speech and normal cognition Psychiatric: Orientation: alert, oriented to person and cooperative
[2018-08-03] MEDS ORDERED: GADOBUTROL 30ML VIAL IV PRN (21:26)
[2018-08-03] MEDS: KETOROLAC TROMETHAMINE 15 MG/ML VIAL IV PRN (21:49)
[2018-08-03] MEDS: dexAMETHasone 4 MG in SYRINGE 0 ML IV SCH (21:50)
[2018-08-03] MEDS: PRAVASTATIN SOD 10 MG TAB PO SCH (21:50)
--- NOTE | 2018-08-03 22:14 | Magnetic Resonance Report ---
MR brain wo/w con HISTORY: 88 years-old Male Brain tumor follow-up study in a patient with acute headache and brain ma ss COMPARISON: CT head of same day at 08/03/2018 TECHNIQUE: Multiplanar multisequence MRI the brain was obtained both with and without the use of 7 mL Gadavist FINDINGS: Smoke Eater localizer images demonstrate no gross extracranial abnormality. There is an avidly enhancing predominantly homogeneous mass about the right cerebral hemisphere which predominantly appears to be intraventricular involving the atria, posterior and temporal horns of th e right lateral ventricle overall measuring approximately 6.5 x 2.2 x 2.9 cm (image 19 series 1101 an d image 72 of series 11). Round portion of the mass within the posterior horn right lateral ventricle measures up to 2.9 cm and within the temporal horn measuring up to 2.0 cm. This mass demonstrates in termediate T1 and T2 signal and appears to surround the choroid plexus involving the ependymal and paz bependymal tissues with extension into the adjacent periventricular white matter and right aspect of the splenium corpus callosum (image 15 series 9). There is extensive associated vasogenic edema withi n these distributions with gyral expansion and sulcal effacement. The mass demonstrates restricted di ffusion without blooming artifact. There is no midline shift, herniation or additional abnormal enhan cement identified. No acute intracranial hemorrhage or territorial infarct. No hydrocephalus. Backgro und age-related involutional changes with moderate T2/FLAIR hyperintensities within the white matter suggestive of chronic microvascular ischemic changes. Major flow voids at the level of the skull base appear patent. Mastoid air cells are clear. Mild muco juan thickening of the maxillary and ethmoid sinuses. Prior bilateral cataract repair. The skull, scal p and soft tissues are unremarkable. Optic chiasm, and pituitary gland appear unremarkable. 6 mm pine al gland cyst incidentally noted. Degenerative changes noted about the imaged cervical spine. IMPRESSION: 1. Avidly enhancing mass with restricted diffusion of the right cerebral hemisphere predominantly is intraventricular involving the atria, posterior and temporal horns of the right lateral ventricle paloma suring up to 6.5 cm and demonstrates invasion into the ependymal and subependymal tissues with extens ion into the periventricular white matter of the right parietal and temporal lobes and right aspect o f the splenium corpus callosum . Extensive associated vasogenic edema with associated sulcal effaceme nt. Primary differential consideration is a glial neoplasm. Neurosurgical consultation recommended. 2. No associated herniation, hemorrhage or midline shift. The above report was generated using voice recognition software. It may contain grammatical, syntax o r spelling errors. Electronically signed by: Antwan Becerril M.D. 08/04/2018 2:47 PM
[2018-08-03] MEDS: ONDANSETRON INJ 2 MG/ML 2 ML VIAL IV PRN (22:16)
[2018-08-04] MEDS: dexAMETHasone 4 MG in SYRINGE 0 ML IV SCH ×7 (00:31→23:32)
[2018-08-04] MEDS: KETOROLAC TROMETHAMINE 15 MG/ML VIAL IV PRN (05:02)
[2018-08-04 05:58] LABS: Hematocrit (blood only) 42.8 % (42-52); Hemoglobin 14.8 g/dL (14.0-18.0); Mean Corpuscular Hgb Conc 34.6 g/dL (32-36); Mean Corpuscular Volume 96.8 fL (80-100); Mean Platelet Volume 9.6 fL (7.4-10.4); Platelet Count 108 K/uL (130-400); RDW Coefficient of Variation 13.7 % (11.5-14.5); RDW Standard Deviation 48.5 fL (36.4-46.3); Red Blood Count 4.42 M/uL (4.7-6.1); White Blood Count 8.17 K/uL (4.8-10.8)
[2018-08-04 06:18] LABS: BUN Creatinine Ratio 22.5 (10-20); Calcium 8.7 mg/dl (8.5-10.1); Creatinine Clr Calc Pharmacy 64.3 ml/min; Est GFR (African American) 91.9; Est GFR (Non-African American) 79.3; Magnesium 2.3 mg/dl (1.8-2.4); Potassium 4.2 mmol/L (3.5-5.1)
[2018-08-04] MEDS: ONDANSETRON INJ 2 MG/ML 2 ML VIAL IV PRN ×2 (08:02→17:04)
[2018-08-04] MEDS: METOPROLOL SUCC 25MG EXT REL TAB PO SCH (08:10)
[2018-08-04] MEDS: PANTOprazole 40 MG TAB PO SCH (08:10)
[2018-08-04] MEDS ORDERED: HYDROmorphone INJ 0.5 MG/0.5 ML SYR IV PRN (09:49)
[2018-08-04] MEDS ORDERED: ACETAMINOPHEN 500 MG TAB PO PRN (09:50)
[2018-08-04] MEDS ORDERED: ACETAMINOPHEN 500 MG TAB ONE (10:08)
[2018-08-04] MEDS ORDERED: OXYCODONE HCL IR 5 MG TAB (IMMEDIATE RELEASE) PO PRN (10:39)
[2018-08-04] MEDS ORDERED: ACETAMINOPHEN 1,000 MG/100 ML VIAL IV PRN (10:40)
[2018-08-04] MEDS ORDERED: POLYETHYLENE (MIRALAX) 17 GM PACK PO PRN (10:52)
[2018-08-04] MEDS: PROMETHAZINE HCL 12.5 MG in SODIUM CHLORIDE 0.9% 50 ML IV PRN ×2 (11:14→22:00)
--- NOTE | 2018-08-04 17:42 | Hospitalist Progress Note ---
Date of Service August 04, 2018 Assessment & Plan (1) Brain tumor: CT head on 08/03 showed a 2.5 cm near the right lateral ventricle with a large amount of surrounding edema. - MRI brain with contrast shows a 6.5 cm mass in the right cerebral hemisphere with vasogenic edema surrounding it - Dexamethasone has greatly improved the patient's confusion -Continue to hold heparin and any anti-platelet agents for concern for bleeding - Heme/onc consult, radiation oncology consult, and palliative care consult - Patient confirmed DNR status I very yuriy discussion with the patient and his son in the room told him that this is very suspicious for malignancy although we do not have a tissue di agnosis and if you wish to pursue that we might need to go to another hospital as we do not have a neurosurgeon here. The patient previously has had some positive experiences with [facility] in dealing with his 's malignancy. Also curbside neurology to discuss whether the patient should be on a prophylactic antiepileptic medication and he felt given the patient's age to be more concern for side effects with mental status changes and would not recommend instituting antiepileptic medication unless the patient develops seizure evidence (2) CAD (coronary artery disease): S/p remote stents. Continues without chest pain - Hold ASA for risk of bleeding - Continue beta-lavon and statin (3) Hypertension: BP elevated to 180/80 inpatient. - Continue home beta-lavon - Monitor BP - Hydralazine PRN (4) Thrombocytopenia: Mild, chronic. Per outpatient PCP notes, baseline is ~110. - Monitor (5) DVT prophylaxis: SCDs - Heparin contraindicated with brain tumor Subjective With the patient and his son in the room we discussed the findings of his MRI scan which unfortunately were not very positive. He does 6.5 cm mass in the right cerebral hemisphere with vasogenic edema surrounding is suspicious for malignancy. According to the son and the nursing staff the patient's mental clarity is much better than it was 1 day prior and the patient also can recall events in the last few weeks. Unfortunately the patient just lost his to leukemia. Patient wishes to see Dr. Koo for oncological consultation is agreeable to consider treatment options including radiation oncology Review of Systems ROS: well nourished well developed. No double vision blurry vision No problems with speech or swallowing No palpitations, chest pain or pressure No Wheezing or breathing issues No abdominal pain nausea vomiting diarrhea changes in appetite or weight No burning urine urine frequency or changes in color No focal joint pain or muscle pain No skin rashes or oral lesions No unusual bruising or bleeding No focused back pain or numbness or loss of strength Patient has occasional confusion of words but no focal loss of motor function and sensation and fairly intact memory Physical Exam Vital Signs (Past 24 Hours): Last Vital Signs Temp 36.9 C 08/04/18 15:11 Pulse 77 08/04/18 15:11 Resp 20 08/04/18 15:11 112/66 08/04/18 15:11 Pulse Ox 94 08/04/18 15:11 The patient appeared well nourished and normally developed. Vital signs as documented. Head exam is unremarkable. normocephalic, atraumatic Neck is without jugular venous distension, thyromegaly, or lymphademopathy Lungs are clear to auscultation and percussion. Cardiac exam reveals Rhythm is regular. First and second heart sounds normal. Abdominal exam reveals normal bowel sounds, no masses, no organomegaly Extremities are nonedematous and both pedal pulses are present Neurologic exam is A&Ox3, no focal deficits, strength is equal bilateral Psychologically seems anxious Skin is warm Dry without bruises or lesions
[2018-08-04] MEDS: PRAVASTATIN SOD 10 MG TAB PO SCH (19:56)
[2018-08-05] MEDS: dexAMETHasone 4 MG in SYRINGE 0 ML IV SCH ×6 (03:34→23:39)
[2018-08-05] MEDS: METOPROLOL SUCC 25MG EXT REL TAB PO SCH (07:52)
[2018-08-05] MEDS: PANTOprazole 40 MG TAB PO SCH (07:52)
--- NOTE | 2018-08-05 08:58 | Radiation OncologyConsultation ---
Date of Consultation August 05, 2018 Assessment & Plan (1) Brain tumor: Assessment: Mr. Jo is an 88-year-old gentleman who presents with enhancing lesions involving the brain concerning for potential malignancy. The patient has no history of cancer. The patient has been admitted to the hospital for further workup and evaluation. Recommendation: Completion of staging workup including a CT of the chest/abdomen/pelvis. I would not recommend radiation therapy without a tissue diagnosis unless absolutely necessary. Continue to keep the patient on dexamethasone. Plan: Will make final recommendations to patient after completion of staging scans. Will discuss plan with primary hospital team. Please call us with any further questions or concerns. Present on Admission?: Yes History of Present Illness Reason for Consultation: Brain masses Requesting Physician: Bro Hu DO History of Present Illness 08/03/2018. Patient presents to emergency room due to severe frontal headaches. According to family, the patient has been more confused and has not had good balance recently. Patient recently lost his to multiple myeloma. 08/03/2018. CT of head. IMPRESSION: 1. No acute intracranial hemorrhage, midline shift or hydrocephalus. 2. Extensive edema throughout the right parietal and temporal lobes, likely vasogenic associated with a probable mass adjacent to the atria right lateral ventricle measuring up to 2.5 cm. Primary glial neoplasm is the differential of exclusion. Correlation with contrast-enhanced MRI is needed to further evaluate. 08/03/2018. MRI of Brain. IMPRESSION: 1. Avidly enhancing mass with restricted diffusion of the right cerebral hemisphere predominantly is intraventricular involving the atria, posterior and temporal horns of the right lateral ventricle measuring up to 6.5 cm and demonstrates invasion into the ependymal and subependymal tissues with extension into the periventricular white matter of the right parietal and temporal lobes and right aspect of the splenium corpus callosum . Extensive associated vasogenic edema with associated sulcal effacement. Primary differential consideration is a glial neoplasm. Neurosurgical consultation recommended. 2. No associated herniation, hemorrhage or midline shift. Currently, the patient states that his headaches are more stable at this point. He has no other significant complaints. Allergies Allergy/AdvReac Type Severity Reaction Status Date / Time Aoupceq-Ghb-Edf Reductase Allergy Unknown CRESTOR,LIPITOR,ZOCOR-MUSCLE Verified 08/03/18 14:34 Inhibitor ACHES Home Medications Home Medications Medication Instructions Recorded Confirmed Type aspirin 81 mg PO DAILY 08/03/18 08/03/18 History cholecalciferol (vitamin D3) 2,000 unit PO DAILY 08/03/18 08/03/18 History [Vitamin D3] lutein 6 mg PO DAILY 08/03/18 08/03/18 History metoprolol succinate 25 mg PO DAILY 08/03/18 08/03/18 History omega 7-oal-xou-fish oil [Fish Oil] 1 cap PO DAILY 08/03/18 08/03/18 History omeprazole 20 mg PO DAILY 08/03/18 08/03/18 History pravastatin 10 mg PO HS 08/03/18 08/03/18 History Patient History Medical History Heart disease (Chronic) CAD (coronary artery disease) Hyperlipemia Hypertension Surgical History Stented coronary artery (Chronic) H/O angioplasty (Resolved) Family History Mother Colorectal cancer Social History Preferred Language: [place] Communication Ability: Effective Gunite Nozzle Operator Required: No Beliefs That Will Affect Care: None Current Living Situation: Alone Other Information That Helps Us Care for You: No Feels Safe at Home: Yes Safety Concerns: Feels Safe At This Time Smoking Status: Former smoker Hx Alcohol Use: Yes Hx Substance Use: No Review of Systems Constitutional: as per Subjective / HPI Eyes: as per Subjective / HPI Ear, Nose, Mouth, Throat: as per Subjective / HPI Respiratory: as per Subjective / HPI Cardiovascular: as per Subjective / HPI Gastrointestinal: as per Subjective / HPI Musculoskeletal: as per Subjective / HPI Integumentary: as per Subjective / HPI Neurologic: as per Subjective / HPI Psychiatric: as per Subjective / HPI Endocrine: as per Subjective / HPI Hematologic / Lymphatic: as per Subjective / HPI Allergy / Immunological: as per Subjective / HPI Physical Exam Vital Signs (Past 24 Hours): Last Vital Signs Temp 36.8 C 08/05/18 07:05 Pulse 75 08/05/18 07:05 Resp 18 08/05/18 07:05 BP 139/75 08/05/18 07:05 Pulse Ox 94 08/05/18 07:05 Constitutional: WD/WN, vitals as above well developed and well nourished Eyes: PERRL, conjunctivae normal, anicteric sclerae ENMT: external ear and nose normal, oropharynx normal Neck: trachea midline, no thyromegaly Respiratory: normal respiratory effort, lungs clear to auscultation Cardiovascular: RRR, no murmur, no edema Gastrointestinal (Abdomen): normal bowel sounds, soft, nontender, no hepatosplenomegaly Musculoskeletal: no cyanosis or clubbing, extremities motor strength 5/5 Skin: no rashes, warm and dry Neurologic: patellar DTR's 2+ bilat, sensation intact and PERRL, EOMI, accommodation nl, no face palsy, no dysarthria Psychiatric: A+Ox3, euthymic affect Results Additional Studies 08/03/18 14:20 CT head/brain wo con Stat XR chest 1V portable Stat 08/03/18 14:21 ECG 12 lead EKG Stat 08/03/18 18:25 MR brain wo/w con Stat Time Spent Attending I spent 30 minutes for this consultation, which included obtaining clinical information, performing a physical exam, recommending a plan of action and answering questions. Greater than 50% of the time spent was direct face to face interaction with the patient.
[2018-08-05] MEDS: ONDANSETRON INJ 2 MG/ML 2 ML VIAL IV PRN ×2 (09:44→12:33)
[2018-08-05] MEDS ORDERED: IOVERSOL 100ml IV PRN (10:47)
--- NOTE | 2018-08-05 11:08 | CT Scan Report ---
CHEST CT WITH CONTRAST CT DOSE: 556.95 mGy.cm HISTORY: brain tumor, look for primary TECHNIQUE: Multiaxial CT images of the chest were performed following the intravenous administration of contrast. A dose lowering technique was utilized adhering to the principles of ALARA. COMPARISON: None. FINDINGS: Mild respiratory motion artifact. The central airways are patent. No pleural effusions. No pneumothorax. A few bibasilar linear densities likely representing subsegmental atelectasis. The lung s are otherwise clear. No suspicious lytic or blastic osseous lesions. No mediastinal or hilar lympha denopathy. The heart is borderline enlarged. Normal esophagus. 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 The main pulmonary arteries are patent. There are few small hypodense lesions within the liver. These favor cysts. The visualized spleen is unremarkable.. IMPRESSION: 1. No evidence for malignancy within the chest. 2. There is a left aortic arch with an aberrant right subclavian artery. 3. Please refer to the same day abdomen and pelvis CT for further evaluation of the abdominal structu res. Electronically signed by: Issa Baez M.D. 08/05/2018 11:07 AM
--- NOTE | 2018-08-05 12:03 | CT Scan Report ---
ABDOMEN AND PELVIS CT WITH IV CONTRAST HISTORY: Subsequent treatment strategy for possible metastatic disease. Brain neoplasm. brain tumor, look for primary TECHNIQUE: Multiaxial CT images of the abdomen and pelvis were performed following the use of intrave nous contrast. A dose lowering technique was utilized adhering to the principles of ALARA. COMPARISON STUDY: Lumbar spine MRI 06/25/2015. FINDINGS: Mild dependent subsegmental bibasilar atelectasis. Respiratory motion limits evaluation of the lung bases. Study is motion degraded. No pneumatosis or pneumoperitoneum. Imaged inferior cardiac chambers are mildly enlarged. Coronary arterial calcifications are noted. There are several circumscribed hyp odense lesions noted about the liver measuring up to 1.5 cm about the left hepatic lobe suggestive of probable cysts. Several of these lesions however are too small to characterize. There is no intrahep atic biliary ductal dilation identified. No ascites. The spleen, pancreas, gallbladder and adrenal gl ands appear unremarkable. Kidneys, and ureters appear unremarkable. Prostamegaly with coarse prostatic calcifications noted. Ex tensive calcification of the aorta with mild fusiform aneurysmal dilation measuring 3.1 x 2.9 cm abou t the infrarenal renal segment. Mild dilation of the bilateral common iliac arteries. Left-sided ilio psoas bursitis with fluid collection tracking along the myotendinous junction. No adenopathy. No lele l obstruction or focal bowel wall thickening. Moderate volume of formed stool about the ascending and transverse colon. Multiple stool-filled loops of small bowel suggest decreased small bowel transit. Visualized appendix appears normal. No ascites or mesenteric inflammation. Soft tissues are within no rmal limits. Degenerative changes of the spine, pelvis and hips. No suspicious bone lesions identifie d. IMPRESSION: 1. No acute intra-abdominal or intrapelvic abnormality identified. 2. No adenopathy or definite evidence of metastatic disease. 3. Moderate volume of formed stool about the right hemicolon and transverse colon with multiple stool -filled loops of small bowel suggestive of constipation with decreased small bowel transit. 4. Prostamegaly. 5. Extensive calcification of the abdominal aorta with mild fusiform infrarenal aneurysm, 3.1 x 2.9 c m. 6. Left iliopsoas bursitis. 7. Additional findings as above. Electronically signed by: Antwan Becerril M.D. 08/05/2018 12:01 PM
--- NOTE | 2018-08-05 13:29 | Hospitalist Progress Note ---
Date of Service August 05, 2018 Assessment & Plan (1) Brain tumor: CT head on 08/03 showed a 2.5 cm near the right lateral ventricle with a large amount of surrounding edema. - MRI brain with contrast shows a 6.5 cm mass in the right cerebral hemisphere with vasogenic edema surrounding it - Dexamethasone has greatly improved the patient's confusion, resolved today -Continue to hold heparin and any anti-platelet agents for concern for bleeding d/w Dr. Aguiar with radiation oncology today, got CT chest/abd/pelvis that showed no other malignancy he will perform radiation therapy but wants tissue diagnosis first d/w Dr. Espinoza with [facility] neurosurgery, he will be happy to see the patient in the office on Sunday will take disc with MRI patient and his family are open to getting biopsy anticipate d/c to home tomorrow, will order PT/OT to make sure he is safe (2) CAD (coronary artery disease): S/p remote stents. Continues without chest pain - Hold ASA for risk of bleeding - Continue beta-lavon and statin (3) Hypertension: BP elevated to 180/80 inpatient. - Continue home beta-lavon - Monitor BP - Hydralazine PRN (4) Thrombocytopenia: Mild, chronic. Per outpatient PCP notes, baseline is ~110. he is 108 today (5) DVT prophylaxis: SCDs - Heparin contraindicated with brain tumor Subjective met with patient and his family at the bedside symptoms of headache and confusion are much improved since starting Decadron discussed with radiation oncology this morning, wanted CT chest/abd/pelvis -- no evidence of another malignancy suggested that this is primary brain tumor discussed with Dr. Espinoza with [facility] neurosurgery over the phone, he recommended follow up in office this week scheduled appt on Sunday patient with some nausea, improved with Zofran will plan to go home tomorrow Review of Systems All systems reviewed & are unremarkable except as noted in HPI & below Constitutional: + fatigue and + weakness Gastrointestinal: + nausea Physical Exam Vital Signs (Past 24 Hours): Last Vital Signs Temp 36.4 C L 08/05/18 11:55 Pulse 64 08/05/18 11:55 Resp 18 08/05/18 11:55 BP 136/78 08/05/18 11:55 Pulse Ox 96 08/05/18 11:55 Constitutional: WD/WN, vitals as above Eyes: PERRL, conjunctivae normal, anicteric sclerae ENMT: external ear and nose normal, oropharynx normal Neck: trachea midline, no thyromegaly Respiratory: normal respiratory effort, lungs clear to auscultation Cardiovascular: RRR, no murmur, no edema Gastrointestinal (Abdomen): normal bowel sounds, soft, nontender, no hepatosplenomegaly Musculoskeletal: no cyanosis or clubbing, extremities motor strength 5/5 Skin: no rashes, warm and dry Neurologic: patellar DTR's 2+ bilat, sensation intact and PERRL, EOMI, accommodation nl, no face palsy, no dysarthria Psychiatric: A+Ox3, euthymic affect Lymphatic: no cervical or axillary lymphadenopathy Results & Data Laboratory Results Laboratory Results - last 24 hr 08/05/18 05:00 POC Glucose [address] ABDOMEN/PELVIS IMPRESSION: 1. No acute intra-abdominal or intrapelvic abnormality identified. 2. No adenopathy or definite evidence of metastatic disease. 3. Moderate volume of formed stool about the right hemicolon and transverse colon with multiple stool-filled loops of small bowel suggestive of constipation with decreased small bowel transit. 4. Prostamegaly. 5. Extensive calcification of the abdominal aorta with mild fusiform infrarenal aneurysm, 3.1 x 2.9 cm. 6. Left iliopsoas bursitis. 7. Additional findings as above. CT CHEST IMPRESSION: 1. No evidence for malignancy within the chest. 2. There is a left aortic arch with an aberrant right subclavian artery. 3. Please refer to the same day abdomen and pelvis CT for further evaluation of the abdominal structures. Medications Administered Current Inpatient Medications Acetaminophen (Tylenol) 1,000 mg PO Q6H PRN PRN Reason: pain/fever Stop: 09/02/18 18:24 Gadobutrol (Gadavist 30ml) 7 ml IV ONCE PRN PRN Reason: Interaction Checking Stop: 08/07/18 21:25 Last Admin: 08/03/18 21:27 Dose: 7 ml Documented by: Hydromorphone HCl (Dilaudid) 0.5 mg IV Q4H PRN PRN Reason: Pain Stop: 08/18/18 09:48 Dexamethasone 4 mg/ Syringe 1 mls @ 1 mls/min IV Q4H SIRI Stop: 09/02/18 19:59 Last Admin: 08/05/18 15:50 Dose: 1 mls/min Documented by: Promethazine HCl 12.5 mg/ (Sodium Chloride) 50.5 mls @ 202 mls/hr IV Q6H PRN PRN Reason: Nausea And Vomiting Stop: 09/03/18 10:38 Last Infusion: 08/04/18 22:15 Dose: Infused Documented by: Acetaminophen (Ofirmev) 1,000 mg in 100 mls @ 400 mls/hr IV Q8H PRN PRN Reason: Pain Stop: 09/03/18 10:39 Ioversol (Optiray 320 100ml) 94 ml IV ONCE PRN PRN Reason: Interaction Checking Stop: 08/09/18 10:46 Last Admin: 08/05/18 10:48 Dose: 94 ml Documented by: Ketorolac Tromethamine (Toradol) 15 mg IV Q6H PRN PRN Reason: Pain Stop: 08/08/18 20:36 Last Admin: 08/04/18 05:02 Dose: 15 mg Documented by: Metoprolol Succinate (Toprol Xl) 25 mg PO DAILY [facility] Stop: 09/03/18 08:59 Last Admin: 08/05/18 07:52 Dose: 25 mg Documented by: Ondansetron HCl (Zofran) 4 mg IV Q4H PRN PRN Reason: Nausea Stop: 09/02/18 18:24 Last Admin: 08/05/18 12:33 Dose: 4 mg Documented by: Oxycodone HCl (Roxicodone Immediate Rel) 5 mg PO Q4H PRN PRN Reason: Pain Stop: 08/18/18 10:38 Pantoprazole Sodium (Protonix) 40 mg PO DAILY [facility]; Protocol Stop: 09/03/18 08:59 Last Admin: 08/05/18 07:52 Dose: 40 mg Documented by: Polyethylene Glycol (Miralax Powder Packet) 17 gm PO BID PRN PRN Reason: Constipation Stop: 09/03/18 10:51 Pravastatin Sodium (Pravachol) 10 mg PO HS [facility] Stop: 09/02/18 20:59 Last Admin: 08/04/18 19:56 Dose: 10 mg Documented by:
[2018-08-05] MEDS: PRAVASTATIN SOD 10 MG TAB PO SCH (20:36)
[2018-08-06] MEDS: dexAMETHasone 4 MG in SYRINGE 0 ML IV SCH ×2 (04:48→08:12)
[2018-08-06] MEDS: PANTOprazole 40 MG TAB PO SCH (08:12)
[2018-08-06] MEDS: METOPROLOL SUCC 25MG EXT REL TAB PO SCH (08:12)
--- NOTE | 2018-08-06 08:26 | Radiation Oncology Progress Nt ---
Date of Service August 06, 2018 Assessment & Plan (1) Brain tumor: Today, I spoke with Mr. Jo and his son regarding the results of the staging scans. I explained to the patient that the differential diagnosis includes metastatic disease, lymphoma, primary glial tumor, and infection. As per the patient, he is scheduled for a neurosurgery consultation at [facility] for a potential biopsy. I am in full support of this as the patient has an excellent performance status and has no evidence of extracranial disease involvement. At this point, we will not make any follow-up appointments unless needed after the results come back from his biopsy. If neurosurgery advises against a biopsy, we can then meet with the patient again to discuss potential treatment without a diagnosis and the risks involved with that but we are hoping the patient can undergo a biopsy. We will follow his reports from his neurosurgery consultation and any further diagnostic testing that is completed after that. I have provided our contact information to the patient and his son and I have encouraged him to call me with any further questions or concerns. They do understand that radiation therapy may be a part of their care and we are happy to take care of them if that is needed as well. Please call us with any further questions or concerns. Present on Admission?: Yes Supervising Physician Co-Signing Physician Notes I spent 30 minutes for this follow up, which included recommending a plan of action and answering questions. Greater than 50% of the time spent was direct face to face interaction with the patient.
[2018-08-06] MEDS ORDERED: BISACODYL 10 MG SUPP PR STA (09:37)
[2018-08-06] MEDS ORDERED: ONDANSETRON 4 MG OD TAB PO STA (13:03)
--- NOTE | 2018-08-07 08:53 | Discharge Summary ---
Date of Service August 06, 2018 Admission HPI Per Admitting Provider 88-year-old male with a history of hypertension and hyperlipidemia who presents with likely newly diagnosed brain cancer. Patient had been caring for his at home until recently when she of multiple myeloma. Family presented to the house for her and noted that the patient is much more confused than previously and that he has been having issues with his balance which was not previously an issue for him. Per patient, he presented this morning due to a severe, 10 out of 10, aching a forehead headache. Per patient, it feels reminiscent of a migraine headache with nausea, emesis, vertigo, and photo- and phonophobia. Per patient, he has not noticed any focal weakness, any focal sensations changes, or any other neurologic symptoms. No fevers, chills, no shortness of breath, no cough, or any lung symptoms. In the ED, he was noted to have a likely primary brain tumor on CT with significant surrounding edema. Admission Exam Per Admitting Provider Constitutional: WD/WN, vitals as above Eyes: EOM intact bilaterally; no conjunctival abnormality ENMT: external ear and nose normal, oropharynx normal Neck: trachea midline, no thyromegaly normal visual inspection Respiratory: normal respiratory effort, lungs clear to auscultation no respiratory distress Cardiovascular: RRR, no murmur, no edema Gastrointestinal (Abdomen): Inspection/Auscultation: abdomen normal to inspection; abdomen not distended Musculoskeletal: no cyanosis or clubbing, extremities motor strength 5/5 Skin: no rashes, warm and dry Neurologic: moves all extremities and awake Speech / Cognition: normal speech and normal cognition Psychiatric: Orientation: alert, oriented to person and cooperative Principal Diagnosis Brain tumor Discharge Exam Constitutional WD/WN, vitals as above Eyes PERRL, conjunctivae normal, anicteric sclerae ENMT external ear and nose normal, oropharynx normal Neck trachea midline, no thyromegaly Respiratory normal respiratory effort, lungs clear to auscultation Cardiovascular RRR, no murmur, no edema Gastrointestinal (Abdomen) normal bowel sounds, soft, nontender, no hepatosplenomegaly Musculoskeletal no cyanosis or clubbing, extremities motor strength 5/5 Skin no rashes, warm and dry Neurologic patellar DTR's 2+ bilat, sensation intact and PERRL, EOMI, accommodation nl, no face palsy, no dysarthria Psychiatric A+Ox3, euthymic affect Lymphatic no cervical or axillary lymphadenopathy Discharge Data Allergies Allergy/AdvReac Type Severity Reaction Status Date / Time Exirors-Ehp-Xom Reductase Allergy Unknown CRESTOR,LIPITOR,ZOCOR-MUSCLE Verified 08/03/18 14:34 Inhibitor ACHES Consultations 08/03/18 16:01 ED Decision to Admit Stat 08/03/18 18:25 Consult Hematology Routine Consult Radiation Oncology Routine Ordered Studies 08/03/18 14:20 CT head/brain wo con Stat 08/03/18 18:25 MR brain wo/w con Stat 08/05/18 08:58 CT abd pelvis IV con only Urgent CT chest w con Urgent Hospital Course (1) Brain tumor: CT head on 08/03 showed a 2.5 cm near the right lateral ventricle with a large amount of surrounding edema. - MRI brain with contrast shows a 6.5 cm mass in the right cerebral hemisphere with vasogenic edema surrounding it - Dexamethasone has greatly improved the patient's confusion, resolved on 08/05 -Continue to hold heparin and any anti-platelet agents for concern for bleeding d/w Dr. Aguiar with radiation oncology on 08/05, got CT chest/abd/pelvis that showed no other malignancy he will perform radiation therapy but wants tissue diagnosis first d/w Dr. Espinoza with [facility], he will be happy to see the patient in the office on Monday 08/07 will take disc with MRI patient and his family are open to getting biopsy or resection, whatever Dr. Espinoza recommends will d/c home on Decadron, Zofran PRN use Tylenol and/or Motrin for headache, script for Ultram provided if needed (2) CAD (coronary artery disease): S/p remote stents. Continues without chest pain - Hold ASA for risk of bleeding - Continue beta-lavon and statin (3) Hypertension: BP elevated to 180/80 inpatient. - Continue home beta-lavon - Monitor BP - Hydralazine PRN (4) Thrombocytopenia: Mild, chronic. Per outpatient PCP notes, baseline is ~110. valuses have been stable in the hospital (5) DVT prophylaxis: SCDs (6) Constipation: CT abdomen/pelvis showed stool in colon, no obstruction will recommend Miralax BID until he moves bowels stay well hydrated, can use Colace but need to drink full glass of water Total Time Total Time Spent Total Time Spent (In Minutes): 40 minutes Total Time Includes: Examination of the Patient, Discharge Planning, Medication Reconciliation and Other (communication with family) Discharge Plan Discharge Items Patient Disposition: Home - Self-Care Reason For Visit: BRAIN TUMOR Discharge Diagnosis: Brain tumor, right side Condition: Good Discharge Goals: Improve disease control, Improve function and Specific goals Specific Goals: follow up with neurosurgery at [facility] Activity: Per 'Additional Instructions' section Lifting: None Bathing: No limitations Exercise/Sports: Wait until after follow-up appointment Driving/Machine Use Comment: no driving for time being due to tumor Non-emergency contact: Primary Care Provider Call non-emergency contact if: you have any medication questions, your symptoms worsen and you have a fever Follow-up/Referrals: Chaparro Corona MD [Primary Care Provider] - 08/14/18 2:30 am (You have a followup appointment with Dr. Corona on Monday 08/14 at 2:30pm. If you have any questions or need ot reschedule, please call the office at . ) Diet: Heart Healthy Add Provider Instructions: Medications: - DECADRON: take every 6 hours to help decrease swelling around tumor, helps control symptoms - ZOFRAN: take as needed for any nausea - ULTRAM: use as needed for headache if Tylenol or Motrin do not help Brain tumor, right side appears to be a primary brain tumor as there were no abnormalities seen on CT of the chest, abdomen, pelvis discussed with neurosurgeon, Dr. Espinoza, over the phone, recommended office visit on Sunday radiation oncology, Dr. Aguiar, would offer radiation but would want to know the tissue prior to starting radiation Headache: use Motrin and Tylenol as needed Motrin is 600mg every 8 hours as needed Tylenol is 650mg every 6 hours as needed only use the Ultram if the above measures don't work Constipation stay well hydrated, use fiber supplement daily (ie Metamucil), stay active use Miralax (over the counter) twice a day until you move bowels, then back off to once a day use docusate sodium (stool softener, over the counter) twice a day, make sure to take with full glass of water can use Prune juice as well FOLLOW UP - Dr. Espinoza, neurosurgery, [facility] Sunday08/07/18 at 1:30pm Office of neurosurgery [address] [place] [address], [address] [place] [address] for this appointment you will need Insurance information, Photo ID, Medication list take disc with MRI with you to the visit so that Dr. Espinoza can review the images Prescriptions: New dexamethasone [Decadron] 4 mg tablet 4 mg PO Q6H Qty: 60 RF: 1 ondansetron HCl [Zofran] 4 mg tablet 4 mg PO Q8H PRN (Reason: nausea and vomiting) 10 Days Qty: 30 RF: 1 tramadol [Ultram] 50 mg tablet 50 mg PO Q8H PRN (Reason: pain) Qty: 20 RF: 0 Continued pravastatin 10 mg tablet 10 mg PO HS RF: 0 lutein 6 mg Capsule 6 mg PO DAILY RF: 0 omeprazole 20 mg capsule,delayed release(DR/EC) 20 mg PO DAILY RF: 0 metoprolol succinate 25 mg tablet extended release 24 hr 25 mg PO DAILY RF: 0 cholecalciferol (vitamin D3) [Vitamin D3] 2,000 unit Capsule 2,000 unit PO DAILY RF: 0 omega 9-[id number]-qmq-fish oil [Fish Oil] 1,000 mg (120 mg-180 mg) Capsule 1 cap PO DAILY RF: 0 Discontinued aspirin 81 mg Tablet,Delayed Release (Dr/Ec) 81 mg PO DAILY RF: 0 Stand-Alone Forms: [facility] Discharge Orders: Discharge Order (Routine); Ordered 08/06/18 Ordered By: Bro Hu Admission Data Admit Date/Time: 08/03/18 16:33 Attending Provider: Bro Hu Admit Provider: Mich Pierce Primary Care Provider: Chaparro Corona Other Providers: Mich Pierce ; Misbah Koo V ; Galen Aguiar Service: Medical Other Interventions: Discharge Summary Assessment (RN) Last Done: 08/06/18 10:45 DC Date/Time DO NOT enter until pt leaves facility: 08/06/18 13:31
== END 2018-08-06 13:31 | disposition home or self-care (01) | DRG 54 ==
LOC: 4E 13:47 → ED 13:47 → SUATTDRO 16:33 → OBSVTOIN 16:33 → 4E 17:53

== ENCOUNTER 2018-09-05 19:54 | Inpatient (IN) ==
[2018-09-05 21:10] LABS: Hematocrit (blood only) 38.9 % (42-52); Hemoglobin 13.8 g/dL (14.0-18.0); Mean Corpuscular Hgb Conc 35.5 g/dL (32-36); Mean Corpuscular Volume 94.4 fL (80-100); RDW Coefficient of Variation 13.8 % (11.5-14.5); RDW Standard Deviation 47.6 fL (36.4-46.3); Red Blood Count 4.12 M/uL (4.7-6.1); White Blood Count 5.56 K/uL (4.8-10.8)
[2018-09-05 21:26] LABS: Albumin Level 2.4 gm/dl (3.4-5.0); BUN Creatinine Ratio 19.2 (10-20); Calcium 8.8 mg/dl (8.5-10.1); Creatinine Clr Calc Pharmacy 34.2 ml/min; Est GFR (African American) 50.2; Est GFR (Non-African American) 43.3; Potassium 3.3 mmol/L (3.5-5.1)
[2018-09-05 21:29] LABS: Albumin Globulin Ratio 0.6 (0.9-2); Bilirubin,Total 0.8 mg/dl (0.2-1); Globulin 3.8 gm/dl (2.5-4.0); Total Protein 6.2 gm/dl (6.4-8.2)
[2018-09-05] MEDS ORDERED: LEUCOVORIN CALCIUM 25 MG PO STA (21:29)
[2018-09-05 21:39] LABS: Basophils # (auto) 0.01 K/uL (0-0.2); Basophils % (auto) 0.2 %; Eosinophils % (auto) 5.4 %; Immature Granulocytes # (auto) 0.03 K/uL (0.00-0.02); Immature Granulocytes % (auto) 0.5 %; Lymphocytes # (auto) 0.53 K/uL (1.2-3.4); Lymphocytes % (auto) 9.5 %; Mean Platelet Volume 9.4 fL (7.4-10.4); Monocytes # (auto) 0.31 K/uL (0.11-0.59); Monocytes % (auto) 5.6 %; Neutrophils # (auto) 4.38 K/uL (1.4-6.5); Neutrophils % (auto) 78.8 %; Platelet Count 66 K/uL (130-400); Platelet Estimate Decreased (Normal)
[2018-09-05] MEDS ORDERED: SODIUM CHLORIDE 0.9% 1000ML 500 ML IV ONE (21:48)
--- NOTE | 2018-09-05 22:17 | XRay Report ---
XR chest 2V routine CLINICAL HISTORY: Cough. Evaluate for pneumonia. COMPARISON STUDY: Chest radiograph August 03, 2018. Chest CT August 05, 2018. FINDINGS: There is no pneumothorax or pleural effusion. Mild left basilar opacity favors atelectasis. Mild right upper lung opacity is noted. There is no evidence for pulmonary edema. Cardiomegaly is no henrry. IMPRESSION: Mild asymmetric right upper lung density. A small focus of pneumonia is favored however t his could be artifactual. Electronically signed by: Feliciano Nguyen M.D. 09/05/2018 10:15 PM
[2018-09-05] MEDS ORDERED: LEVOFLOXACIN/D5W 750 MG/150 ML BAG IV STA (22:49)
[2018-09-05 22:55] LABS: Appearance Urine Clear (Clear); Bilirubin Urine Negative (Negative); Blood Urine Negative (Negative); Color Urine Yellow; Glucose Urine UA Negative (Negative); Ketones Urine Negative (Negative); Leukocyte Esterase Urine Negative (Negative); Nitrite Urine Negative (Negative); Protein Urine Negative (Negative); Specific Gravity Urine 1.014 (1.000-1.030); Urobilinogen Urine Negative (Negative); pH Urine 7.5 (4.5-7.5)
--- NOTE | 2018-09-06 00:50 | Emergency Department Note ---
Entered by Shelia Jay acting as a scribe for Fritz Grove MD History of Present Illness General Chief complaint: Fever Stated complaint: FEVER Source: patient and family Limitations: no limitations History of Present Illness Provider complaint: fever Onset (ago): day(s) 1 Location: head Severity: mild Quality: + other (Temp of 100.5) Relieved By: + none Exacerbated By: + none Associated symptoms: + denies other symptoms (-trouble breathing, -abdominal pain, -pain with urination), + cough (dry cough), + weakness and + other (+runny nose, +post-nasal drip ); no chest pain, no headaches, no nausea/vomiting and no shortness of breath Treatments prior to arrival: none and other (Augmentin ) The patient is a 88 year old female who presents to the Emergency Room with complaints of a fever that began today. Per [id number], the patient's fever spiked to 100.5 prior to arrival. The patient states that he has a dry cough, runny nose, weakness, and post-nasal drip. The patient denies any chest pain, headache, trouble breathing, abdominal pain, pain with urination. The patient states that he has ate and drank normally prior to arrival. His daughter states that he has not really been drinking as much as usual. The patient states that he was released from [facility] 1 day prior to arrival and was given Augmentin for a UTI. He has been on it for 2 days. The patient states that his discharge creatine was 1.79. He has had elevation of his creatinine due to the methotrexate he was given. He was given methotrexate on Sunday and he received intrathecal chemotherapy on Sunday. 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 He did have a PHYSICAL THERAPY PROFESSOR reservoir placed at [facility]. Home Medications Home Medications Medication Instructions Recorded Confirmed Type cholecalciferol (vitamin D3) 2,000 unit PO DAILY 08/03/18 09/05/18 History [Vitamin D3] omega 7-ytf-khv-fish oil [Fish Oil] 1 cap PO DAILY 08/03/18 09/05/18 History pravastatin 10 mg PO HS 08/03/18 09/05/18 History acetaminophen 650 mg PO Q6H PRN 09/05/18 09/05/18 History amoxicillin-pot clavulanate 1 tab PO BID 09/05/18 09/05/18 History budesonide 1 spray INTRANASAL DAILY 09/05/18 09/05/18 History famotidine 20 mg PO DAILY 09/05/18 09/05/18 History leucovorin calcium 25 mg PO Q6H 09/05/18 09/05/18 History tamsulosin 0.4 mg PO DAILY 09/05/18 09/05/18 History Allergies Allergy/AdvReac Type Severity Reaction Status Date / Time Nmzbcon-Vxt-Tuy Reductase Allergy Unknown CRESTOR,LIPITOR,ZOCOR-MUSCLE Verified 08/03/18 14:34 Inhibitor ACHES Past Med/Surg History Medical History Heart disease (Chronic) CAD (coronary artery disease) Hyperlipemia Hypertension Surgical History Stented coronary artery (Chronic) H/O angioplasty (Resolved) Family History Mother Colorectal cancer Social History Preferred Language: Icelandic Communication Ability: Effective Beliefs That Will Affect Care: None Current Living Situation: Alone Feels Safe at Home: Yes Smoking Status: Former smoker Hx Alcohol Use: Yes Alcohol type: beer Hx Substance Use: No Review of Systems See HPI for pertinent positives & negatives. and A total of 10 systems reviewed and were otherwise negative Physical Exam Vital Signs Vital Signs - 24 hr 09/05/18 20:08 09/05/18 20:23 09/05/18 20:30 Temperature 37.8 C H Temperature Source Oral Sepsis Recent Fever Within 48 Hours Yes Sepsis New/Unexplained Change in Mental Status No Sepsis Action Taken by Nursing No Action Required Pulse Rate 100 H 83 Pulse Rate [Apical] Pulse Rate from SpO2 Sensor 83 Pulse Rhythm Regular Pulse Rhythm [Apical] Pulse Strength Normal Pulse Strength [Apical] Respiratory Rate 18 20 Respiratory Effort / Characteristics Non-Labored Spontaneous Respiratory Depth Normal Respiratory Pattern Regular Blood Pressure 112/74 138/81 Blood Pressure [Right Arm] Blood Pressure Mean 86 100 Blood Pressure Mean [Right Arm] Blood Pressure Position Sitting Blood Pressure Position [Right Arm] Pulse Oximetry 94 91 92 Oxygen Delivery Method Room Air Room Air 09/05/18 20:31 09/05/18 20:32 09/05/18 20:40 Temperature Temperature Source Sepsis Recent Fever Within 48 Hours Sepsis New/Unexplained Change in Mental Status Sepsis Action Taken by Nursing Pulse Rate 87 83 83 Pulse Rate [Apical] Pulse Rate from SpO2 Sensor 86 84 78 Pulse Rhythm Pulse Rhythm [Apical] Pulse Strength Pulse Strength [Apical] Respiratory Rate 19 20 18 Respiratory Effort / Characteristics Respiratory Depth Respiratory Pattern Blood Pressure 122/79 Blood Pressure [Right Arm] Blood Pressure Mean 93 Blood Pressure Mean [Right Arm] Blood Pressure Position Blood Pressure Position [Right Arm] Pulse Oximetry 92 92 92 Oxygen Delivery Method 09/05/18 20:50 09/05/18 21:00 09/05/18 21:01 Temperature Temperature Source Sepsis Recent Fever Within 48 Hours Sepsis New/Unexplained Change in Mental Status Sepsis Action Taken by Nursing Pulse Rate 82 80 78 Pulse Rate [Apical] Pulse Rate from SpO2 Sensor Pulse Rhythm Pulse Rhythm [Apical] Pulse Strength Pulse Strength [Apical] Respiratory Rate 13 18 18 Respiratory Effort / Characteristics Respiratory Depth Respiratory Pattern Blood Pressure 143/82 H Blood Pressure [Right Arm] Blood Pressure Mean 102 Blood Pressure Mean [Right Arm] Blood Pressure Position Blood Pressure Position [Right Arm] Pulse Oximetry Oxygen Delivery Method 09/05/18 21:10 09/05/18 21:20 09/05/18 21:30 Temperature Temperature Source Sepsis Recent Fever Within 48 Hours Sepsis New/Unexplained Change in Mental Status Sepsis Action Taken by Nursing Pulse Rate 78 75 79 Pulse Rate [Apical] Pulse Rate from SpO2 Sensor 78 75 86 Pulse Rhythm Pulse Rhythm [Apical] Pulse Strength Pulse Strength [Apical] Respiratory Rate 17 16 17 Respiratory Effort / Characteristics Respiratory Depth Respiratory Pattern Blood Pressure Blood Pressure [Right Arm] Blood Pressure Mean Blood Pressure Mean [Right Arm] Blood Pressure Position Blood Pressure Position [Right Arm] Pulse Oximetry 92 93 Oxygen Delivery Method 09/05/18 21:40 09/05/18 21:50 09/05/18 22:06 Temperature Temperature Source Sepsis Recent Fever Within 48 Hours Sepsis New/Unexplained Change in Mental Status Sepsis Action Taken by Nursing Pulse Rate 78 79 84 Pulse Rate [Apical] Pulse Rate from SpO2 Sensor 78 80 82 Pulse Rhythm Pulse Rhythm [Apical] Pulse Strength Pulse Strength [Apical] Respiratory Rate 16 18 18 Respiratory Effort / Characteristics Respiratory Depth Respiratory Pattern Blood Pressure Blood Pressure [Right Arm] Blood Pressure Mean Blood Pressure Mean [Right Arm] Blood Pressure Position Blood Pressure Position [Right Arm] Pulse Oximetry 93 93 93 Oxygen Delivery Method 09/05/18 22:08 09/05/18 22:16 09/05/18 22:20 Temperature 37.7 C H Temperature Source Oral Sepsis Recent Fever Within 48 Hours Sepsis New/Unexplained Change in Mental Status Sepsis Action Taken by Nursing Pulse Rate 90 82 Pulse Rate [Apical] Pulse Rate from SpO2 Sensor 106 H 82 Pulse Rhythm Pulse Rhythm [Apical] Pulse Strength Pulse Strength [Apical] Respiratory Rate 21 18 Respiratory Effort / Characteristics Respiratory Depth Respiratory Pattern Blood Pressure Blood Pressure [Right Arm] Blood Pressure Mean Blood Pressure Mean [Right Arm] Blood Pressure Position Blood Pressure Position [Right Arm] Pulse Oximetry 93 93 Oxygen Delivery Method 09/05/18 22:30 09/05/18 22:31 09/05/18 22:40 Temperature Temperature Source Sepsis Recent Fever Within 48 Hours Sepsis New/Unexplained Change in Mental Status Sepsis Action Taken by Nursing Pulse Rate 93 H 78 79 Pulse Rate [Apical] Pulse Rate from SpO2 Sensor 91 H 75 79 Pulse Rhythm Pulse Rhythm [Apical] Pulse Strength Pulse Strength [Apical] Respiratory Rate 25 H 20 20 Respiratory Effort / Characteristics Respiratory Depth Respiratory Pattern Blood Pressure 151/81 H Blood Pressure [Right Arm] Blood Pressure Mean 104 Blood Pressure Mean [Right Arm] Blood Pressure Position Blood Pressure Position [Right Arm] Pulse Oximetry 95 95 95 Oxygen Delivery Method 09/05/18 22:50 09/05/18 23:00 09/05/18 23:01 Temperature Temperature Source Sepsis Recent Fever Within 48 Hours Sepsis New/Unexplained Change in Mental Status Sepsis Action Taken by Nursing Pulse Rate 76 74 70 Pulse Rate [Apical] Pulse Rate from SpO2 Sensor 75 74 73 Pulse Rhythm Pulse Rhythm [Apical] Pulse Strength Pulse Strength [Apical] Respiratory Rate 24 19 19 Respiratory Effort / Characteristics Respiratory Depth Respiratory Pattern Blood Pressure 129/76 Blood Pressure [Right Arm] Blood Pressure Mean 93 Blood Pressure Mean [Right Arm] Blood Pressure Position Blood Pressure Position [Right Arm] Pulse Oximetry 95 92 Oxygen Delivery Method 09/05/18 23:48 Temperature 37.6 C H Temperature Source Oral Sepsis Recent Fever Within 48 Hours Sepsis New/Unexplained Change in Mental Status Sepsis Action Taken by Nursing Pulse Rate Pulse Rate [Apical] 81 Pulse Rate from SpO2 Sensor Pulse Rhythm Pulse Rhythm [Apical] Regular Pulse Strength Pulse Strength [Apical] Normal Respiratory Rate 18 Respiratory Effort / Characteristics Non-Labored Spontaneous Respiratory Depth Normal Respiratory Pattern Regular Blood Pressure Blood Pressure [Right Arm] 134/80 Blood Pressure Mean Blood Pressure Mean [Right Arm] 98 Blood Pressure Position Blood Pressure Position [Right Arm] Lying Pulse Oximetry 94 Oxygen Delivery Method Room Air Constitutional: Vital signs reviewed. Eyes: Pupils are equal round reactive to light. Conjunctiva are noninjected. ENT: Pharynx is clear without erythema or exudate. Mucous membranes are moist. Neck supple without meningeal signs. Respiratory: Clear to auscultation bilaterally. Breath sounds are equal bilaterally. Cardiovascular: Regular rate and rhythm. No rubs or gallops. GI: Soft, nondistended and nontender. Bowel sounds are present. Musculoskeletal: No peripheral edema. No lower extremity tenderness. [place] on top of head, sutures intact with no drainage. Integumentary: No cyanosis. Neurological: The patient is awake and alert. No focal deficits. Psychiatric: Normal affect. Course 2034: The patient was evaluated in room A11B, and a complete history and physical examination were performed. 2147: I checked on the patient and discussed the XR results with the patient and his [id number]. The [id number] wants me to speak with the patient's neurologist. 2240: I discussed the patient's case with Dr. Humphrey- Neurosurgery who agrees with hospitalization here. 2244: [facility] Hospitalist was paged and notified and he will evaluate the patient for further hospitalization. Consultations Consultation #1: Dr. Benitez- Neurosurgery Time: 22:40 [facility]: 22:44 Administered Medications Discontinued Medications Sodium Chloride (Nss 1000ml) 500 mls @ 999 mls/hr IV .Q31M ONE Stop: 09/05/18 22:18 Last Infusion: 09/05/18 22:32 Dose: 0 mls/hr Documented by: [id number] Admin: 09/05/18 21:53 Dose: 999 mls/hr Documented by: [id number] Levofloxacin/Dextrose (Levaquin/D5w) 750 mg in 150 mls @ 100 mls/hr IV ONCE STA Stop: 09/06/18 00:18 Last Infusion: 09/06/18 00:52 Dose: 0 mls/hr Documented by: [id number] Admin: 09/05/18 23:22 Dose: 100 mls/hr Documented by: [id number] Leucovorin Calcium (Leucovorin Calcium) 25 mg PO NOW STA Stop: 09/05/18 21:30 Last Admin: 09/05/18 22:32 Dose: 25 mg Documented by: [id number] Medical Decision Making Differential Diagnosis Differential diagnosis includes: febrile neutropenia, bacteremia, UTI, influenza, and pneumonia. Medical Records Attestation: I reviewed the patient's medical records. The patient was admitted on August 03 for a headache and confusion. The patient was diagnosed with a brain tumor and was discharged with follow-up appointment with oncology and neurology. Home Medications Current Medication List: was personally reviewed by me Laboratory Data Attestation: I reviewed the patient's lab results. Result diagrams: 09/05/18 20:40 09/05/18 20:40 Lab Results 09/05/18 09/05/18 09/05/18 Range/Units 20:40 20:40 20:56 WBC 5.56 (4.8-10.8) K/uL RBC 4.12 L (4.7-6.1) M/uL Hgb 13.8 L (14.0-18.0) g/dL Hct 38.9 L (42-52) % MCV 94.4 (80-100) fL MCH 33.5 (25-34) pg MCHC 35.5 (32-36) g/dL RDW Std Deviation 47.6 H (36.4-46.3) fL RDW Coeff of [place] 13.8 (11.5-14.5) % Plt Count 66 L (130-400) K/uL MPV 9.4 (7.4-10.4) fL Immature Gran % (Auto) 0.5 % Neut % (Auto) 78.8 % Lymph % (Auto) 9.5 % [place] % (Auto) 5.6 % Eos % (Auto) 5.4 % Baso % (Auto) 0.2 % Immature Gran # (Auto) 0.03 H (0.00-0.02) K/uL Neut # (Auto) 4.38 (1.4-6.5) K/uL Lymph # (Auto) 0.53 L (1.2-3.4) K/uL [place] # (Auto) 0.31 (0.11-0.59) K/uL Eos # (Auto) 0.30 (0-0.5) K/uL Baso # (Auto) 0.01 (0-0.2) K/uL Hypersegmented Neuts 1+ Platelet Estimate Decreased (Normal) Sodium 137 (136-145) mmol/L Potassium 3.3 L (3.5-5.1) mmol/L Chloride 103 (98-107) mmol/L Carbon Dioxide 27 (21-32) mmol/L Anion Gap 7.0 (3-11) BUN 28 H (7-18) mg/dl Creatinine 1.45 H (0.6-1.4) mg/dl Est Cr Clr Drug Dosing 34.2 ml/min Est GFR ( Amer) 50.2 Est GFR (Non-Af Amer) 43.3 BUN/Creatinine Ratio 19.2 (10-20) Glucose 109 H (70-99) mg/dl Calcium 8.8 (8.5-10.1) mg/dl Total Bilirubin 0.8 (0.2-1) mg/dl AST 56 H (15-37) U/L ALT 42 (12-78) U/L Alkaline Phosphatase 65 (45-117) U/L Total Protein 6.2 L (6.4-8.2) gm/dl Albumin 2.4 L (3.4-5.0) gm/dl Globulin 3.8 (2.5-4.0) gm/dl Albumin/Globulin Ratio 0.6 L (0.9-2) Urine Color Urine Appearance (Clear) Urine pH (4.5-7.5) Ur Specific [place] (1.000-1.030) Urine Protein (Negative) Urine Glucose (UA) (Negative) Urine Ketones (Negative) Urine Blood (Negative) Urine Nitrite (Negative) Urine Bilirubin (Negative) Urine Urobilinogen (Negative) Ur Leukocyte Esterase (Negative) Influenza Type A Ag Neg for Influ A (Neg) Influenza Type B Ag Neg for Influ B (Neg) 09/05/18 Range/Units 22:13 WBC (4.8-10.8) K/uL RBC (4.7-6.1) M/uL Hgb (14.0-18.0) g/dL Hct (42-52) % MCV (80-100) fL MCH (25-34) pg MCHC (32-36) g/dL RDW Std Deviation (36.4-46.3) fL RDW Coeff of Marck (11.5-14.5) % Plt Count (130-400) K/uL MPV (7.4-10.4) fL Immature Gran % (Auto) % Neut % (Auto) % Lymph % (Auto) % [place] % (Auto) % Eos % (Auto) % Baso % (Auto) % Immature Gran # (Auto) (0.00-0.02) K/uL Neut # (Auto) (1.4-6.5) K/uL Lymph # (Auto) (1.2-3.4) K/uL [place] # (Auto) (0.11-0.59) K/uL Eos # (Auto) (0-0.5) K/uL Baso # (Auto) (0-0.2) K/uL Hypersegmented Neuts Platelet Estimate (Normal) Sodium (136-145) mmol/L Potassium (3.5-5.1) mmol/L Chloride (98-107) mmol/L Carbon Dioxide (21-32) mmol/L Anion Gap (3-11) BUN (7-18) mg/dl Creatinine (0.6-1.4) mg/dl Est Cr Clr Drug Dosing ml/min Est GFR ( Amer) Est GFR (Non-Af Amer) BUN/Creatinine Ratio (10-20) Glucose (70-99) mg/dl Calcium (8.5-10.1) mg/dl Total Bilirubin (0.2-1) mg/dl AST (15-37) U/L ALT (12-78) U/L Alkaline Phosphatase (45-117) U/L Total Protein (6.4-8.2) gm/dl Albumin (3.4-5.0) gm/dl Globulin (2.5-4.0) gm/dl Albumin/Globulin Ratio (0.9-2) Urine Color Yellow Urine Appearance Clear (Clear) Urine pH 7.5 (4.5-7.5) Ur Specific [place] 1.014 (1.000-1.030) Urine Protein Negative (Negative) Urine Glucose (UA) Negative (Negative) Urine Ketones Negative (Negative) Urine Blood Negative (Negative) Urine Nitrite Negative (Negative) Urine Bilirubin Negative (Negative) Urine Urobilinogen Negative (Negative) Ur Leukocyte Esterase Negative (Negative) Influenza Type A Ag (Neg) Influenza Type B Ag (Neg) Imaging Data Radiologist's Impression: Radiology results as stated below per my review and the radiologist's interpretation: XR chest 2V routine CLINICAL HISTORY: Cough. Evaluate for pneumonia. COMPARISON STUDY: Chest radiograph August 03, 2018. Chest CT August 05, 2018. FINDINGS: There is no pneumothorax or pleural effusion. Mild left basilar opacity favors atelectasis. Mild right upper lung opacity is noted. There is no evidence for pulmonary edema. Cardiomegaly is noted. IMPRESSION: Mild asymmetric right upper lung density. A small focus of pneumonia is favored however this could be artifactual. Electronically signed by: Feliciano Nguyen M.D. 09/05/2018 10:15 PM Blood Pressure Blood Pressure Findings: Elevated blood pressure Blood Pressure Disposition: elevated BP felt to be situational MDM Narrative I did evaluate the patient as noted above. The patient is presenting with a fever of 100.5 today. He also feels slightly weak. He is currently on Augmentin and has been for 2 days for a UTI. He did recently receive methotrexate and intrathecal chemotherapy and so is immunocompromised. IV access was established. The patient was placed on a continuous potline monitor. I did order and personally reviewed the images of the patient's chest x-ray as described above. He does appear to have a right upper lobe pneumonia. I did order a urine analysis. He does not have an infection. Blood cultures were ord ered. I did treat the patient with Levaquin IV. I did order and review the patient's blood work as noted in the electronic medical record. He is anemic and thrombocytopenic. He has mild hypokalemia. His renal function is improved with a creatinine of 1.45. I did discuss the test results with the patient and his daughter. I did treat patient with Levaquin IV. I did discuss case with the hospitalist and disease case manager rn. Impression & Plan Pneumonia, Thrombocytopenia, Anemia, Immunocompromised Discharge Plan Visit Data *Final* Discharge Date/Time: 09/06/18 01:03 Chief Complaint: Fever Stated Complaint: FEVER ED Provider: Fritz Grove Discharge Problem: Pneumonia, Thrombocytopenia, Anemia, Immunocompromised Patient Disposition: Being Evaluated by Hospitalist Discharge Instructions Interventions: ED Discharge Assessment Last Done: 09/06/18 01:03 Discharge Problem: Pneumonia Qualifiers: Pneumonia type: due to unspecified organism Laterality: right Lung location: upper lobe of lung Qualified Code(s): J18.1 - Lobar pneumonia, unspecified organism Anemia Qualifiers: Anemia type: unspecified type Qualified Code(s): D64.9 - Anemia, unspecified The scribe's documentation has been prepared under my direction and personally reviewed by me in its entirety. I confirm that the note above accurately reflects all work, treatment, procedures, and medical decision making performed by me.
[2018-09-06] MEDS ORDERED: ONDANSETRON INJ 2 MG/ML 2 ML VIAL IV PRN (01:30)
[2018-09-06] MEDS ORDERED: VANCOMYCIN HCL 1,000 MG in SODIUM CHLORIDE 0.9% 250 ML IV SCH (01:30)
[2018-09-06] MEDS ORDERED: ALUMINUM/MAGNESIUM SUSP 30 ML UDC PO PRN (01:30)
[2018-09-06] MEDS ORDERED: MAGNESIUM HYDROXIDE SUSP 30 ML UDC PO PRN (01:30)
[2018-09-06] MEDS ORDERED: PIPERACILLIN/TAZOBACTAM 4.5 GM in DEXTROSE 5% 100 ML IV SCH (01:30)
[2018-09-06] MEDS ORDERED: ZOLPIDEM TARTRATE 5 MG TAB PO PRN (01:30)
[2018-09-06] MEDS ORDERED: PIPERACILL/TAZOBAC CONSULT ACTIVE PRN (01:30)
[2018-09-06] MEDS ORDERED: VANCOMYCIN CONSULT ACTIVE PRN (01:30)
[2018-09-06] MEDS ORDERED: LEVOFLOXACIN CONSULT ACTIVE PRN (02:14)
[2018-09-06] MEDS ORDERED: PIPERACILLIN/TAZOBACTAM 3.375 GM in DEXTROSE 5% 100 ML IV ONE (02:15)
[2018-09-06] MEDS ORDERED: VANCOMYCIN HCL 1,500 MG in SODIUM CHLORIDE 0.9% 500 ML IV SCH (02:15)
[2018-09-06] MEDS: LEUCOVORIN CALCIUM 25 MG PO SCH ×3 (06:02→18:03)
--- NOTE | 2018-09-06 06:02 | History & Physical Report ---
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 He was recently diagnosed there with urinary tract infection, and upon discharge was placed on Augmentin, which will be held today. Chest x-ray and CT of chest here suggested possible right upper lobe infiltrate. He will be placed on broad-spectrum antibiotics: Vancomycin IV, Zosyn IV and levofloxacin IV. We will consult infectious disease. Family has asked that oncology questions be directed to [facility] attendings. Present on Admission?: Yes (2) Immunocompromised: See above Present on Admission?: Yes (3) Pneumonia: As noted above, treat with broad-spectrum antibiotics vancomycin IV, Zosyn IV and levofloxacin IV. Duonebs every 4 hours while awake and every 2 hours when necessary.. Guaifenesin extended release 60 mg p.o. twice daily. Sputum Gram stain and culture. Present on Admission?: Yes (4) UTI (urinary tract infection): Treatment begun at [facility] with Augmentin, which will be held in lieu of the above antibiotic regimen. Present on Admission?: Yes (5) Anemia: Follow with serial laboratories. Present on Admission?: Yes (6) Thrombocytopenia: Follow with serial laboratories. Present on Admission?: Yes (7) Hyperlipidemia LDL goal <70: Continue pravastatin 10 mg p.o. Present on Admission?: Yes History of Present Illness Chief Complaint: The patient presents to the emergency department with fever, increased sleeping, and generalized weakness. 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 During that admission he had improved response to dexamethasone, was also seen by Dr. Galen Aguiar from radiation oncology, who had asked that the patient be seen at [facility] for brain biopsy for definitive diagnosis. Since that time, the patient has been seen at [facility], had a brain biopsy performed, ENTERTAINMENT CENTRE MANAGER reservoir placed, and since that time is undergone IV methotrexate, intrathecal chemotherapy, and presently is on leucovorin 25 mg p.o. every 6 hours. The patient is significantly fatigued, but does wake up from sleep, and is able to contribute to his HPI and review of systems, but the majority of information is gathered from his [id number] who is present. She reports that he developed a temperature to 100.5 degrees earlier in the day prior to arrival, and has had a dry cough, runny nose, postnasal drip and generalized weakness. She reports that he had just been discharged from [facility] 1 day ago, and the patient had just been started on Augmentin for possible UTI. She reports that his peak creatinine had been 1.94, that was attributed to administration of methotrexate, which he was given IV on Sunday, and then received intrathecal chemotherapy on Sunday. The patient himself voices little in the way of complaints, but that appears to be his history of not complaining much when he is not feeling well, per family. Allergies Allergy/AdvReac Type Severity Reaction Status Date / Time Bdxmqfh-Fkh-Ldl Reductase Allergy Unknown CRESTOR,LIPITOR,ZOCOR-MUSCLE Verified 08/03/18 14:34 Inhibitor ACHES Home Medications Home Medications Medication Instructions Recorded Confirmed Type cholecalciferol (vitamin D3) 2,000 unit PO DAILY 08/03/18 09/05/18 History [Vitamin D3] omega 5-gts-dxb-fish oil [Fish Oil] 1 cap PO DAILY 08/03/18 09/05/18 History pravastatin 10 mg PO HS 08/03/18 09/05/18 History acetaminophen 650 mg PO Q6H PRN 09/05/18 09/05/18 History amoxicillin-pot clavulanate 1 tab PO BID 09/05/18 09/05/18 History budesonide 1 spray INTRANASAL DAILY 09/05/18 09/05/18 History famotidine 20 mg PO DAILY 09/05/18 09/05/18 History leucovorin calcium 25 mg PO Q6H 09/05/18 09/05/18 History tamsulosin 0.4 mg PO DAILY 09/05/18 09/05/18 History Past Med/Surg History Medical History Heart disease (Chronic) CAD (coronary artery disease) Hyperlipemia Hypertension Surgical History Stented coronary artery (Chronic) H/O angioplasty (Resolved) Family History Mother Colorectal cancer Social History Preferred Language: Vietnamese Communication Ability: Effective Overlock Collar Setter Required: No Beliefs That Will Affect Care: None Current Living Situation: Alone Other Information That Helps Us Care for You: No Feels Safe at Home: Yes Safety Concerns: Feels Safe At This Time Smoking Status: Former smoker Hx Alcohol Use: Yes Alcohol type: beer Hx Substance Use: No Review of Systems Review of Systems: The patient denies chest pain, palpitations, shortness of breath, dyspnea on exertion, lower extremity swelling, sore throat, chills, sweats, weight change, nausea, vomiting, diarrhea , constipation, abdominal pain, pelvic pain, blood in urine or stool, dysuria, urinary frequency or urgency, memory loss, loss of consciousness, rash, abnormal bruising or bleeding, imbalance, focal weakness, numbness or tingling in arms or legs, generalized arthralgias or myalgias, back or neck pain, or night sweats. The review of systems is otherwise negative other than for that already noted above, and at least 10 systems have been reviewed. Physical Exam Physical Exam: The patient is asleep but arouses easily, is then alert and oriented 3, surgical incision frontoparietal area, lying in bed and in otherwise no acute distress. HEENT--PERRL, EOMI, mucous membranes and oropharynx dry. Neck--supple. No JVD. No bruits. Thyroid normal, trachea midline, no adenopathy. Heart--normal S1 and S2. No murmurs, rubs or gallops. Lungs--few coarse breath sounds bilaterally. No respiratory distress, no accessory muscle use. Abdomen--normal bowel sounds and soft. Nontender. Nondistended. Extremities--no cyanosis or clubbing. No edema. There are good distal pulses b/l. Dermatologic--normal skin turgor, normal color, no abnormal lymph nodes, no rash. Neurologic--cranial nerves II through XII grossly intact. Rheumatologic--normal range of motion. Psychiatric--normal affect but very fatigued Results & Data Vital Signs (Past 12 Hours) Vital Signs Temp Pulse Pulse Resp BP BP BP 09/06/18 01:25 99.1 F 75 18 160/90 H 09/05/18 23:48 99.7 F H 81 18 134/80 09/05/18 23:01 70 19 129/76 09/05/18 23:00 74 19 09/05/18 22:50 76 24 09/05/18 22:40 79 20 09/05/18 22:31 78 20 151/81 H 09/05/18 22:30 93 H 25 H 09/05/18 22:20 82 18 09/05/18 22:16 90 21 09/05/18 22:08 99.9 F H 09/05/18 22:06 84 18 09/05/18 21:50 79 18 09/05/18 21:40 78 16 09/05/18 21:30 79 17 09/05/18 21:20 75 16 09/05/18 21:10 78 17 09/05/18 21:01 78 18 143/82 H 09/05/18 21:00 80 18 09/05/18 20:50 82 13 09/05/18 20:40 83 18 09/05/18 20:32 83 20 09/05/18 20:31 87 19 122/79 09/05/18 20:30 09/05/18 20:23 83 20 138/81 09/05/18 20:08 100.0 F H 100 H 18 112/74 Pulse Ox 09/06/18 01:25 95 09/05/18 23:48 94 09/05/18 23:01 92 09/05/18 23:00 09/05/18 22:50 95 09/05/18 22:40 95 09/05/18 22:31 95 09/05/18 22:30 95 09/05/18 22:20 93 09/05/18 22:16 93 09/05/18 22:08 09/05/18 22:06 93 09/05/18 21:50 93 09/05/18 21:40 93 09/05/18 21:30 09/05/18 21:20 93 09/05/18 21:10 92 09/05/18 21:01 09/05/18 21:00 09/05/18 20:50 09/05/18 20:40 92 09/05/18 20:32 92 09/05/18 20:31 92 09/05/18 20:30 92 09/05/18 20:23 91 09/05/18 20:08 94 Laboratory Results Laboratory Results WBC 5.56 K/uL (4.8-10.8) 09/05/18 20:40 RBC 4.12 M/uL (4.7-6.1) L 09/05/18 20:40 Hgb 13.8 g/dL (14.0-18.0) L 09/05/18 20:40 Hct 38.9 % (42-52) L 09/05/18 20:40 MCV 94.4 fL (80-100) 09/05/18 20:40 MCH 33.5 pg (25-34) 09/05/18 20:40 MCHC 35.5 g/dL (32-36) 09/05/18 20:40 RDW Std Deviation 47.6 fL (36.4-46.3) H 09/05/18 20:40 RDW Coeff of Marck 13.8 % (11.5-14.5) 09/05/18 20:40 Plt Count 66 K/uL (130-400) L 09/05/18 20:40 MPV 9.4 fL (7.4-10.4) 09/05/18 20:40 Immature Gran % (Auto) 0.5 % 09/05/18 20:40 Neut % (Auto) 78.8 % 09/05/18 20:40 Lymph % (Auto) 9.5 % 09/05/18 20:40 [place] % (Auto) 5.6 % 09/05/18 20:40 Eos % (Auto) 5.4 % 09/05/18 20:40 Baso % (Auto) 0.2 % 09/05/18 20:40 Immature Gran # (Auto) 0.03 K/uL (0.00-0.02) H 09/05/18 20:40 Neut # (Auto) 4.38 K/uL (1.4-6.5) 09/05/18 20:40 Lymph # (Auto) 0.53 K/uL (1.2-3.4) L 09/05/18 20:40 [place] # (Auto) 0.31 K/uL (0.11-0.59) 09/05/18 20:40 Eos # (Auto) 0.30 K/uL (0-0.5) 09/05/18 20:40 Baso # (Auto) 0.01 K/uL (0-0.2) 09/05/18 20:40 Hypersegmented Neuts 1+ 09/05/18 20:40 Platelet Estimate Decreased (Normal) 09/05/18 20:40 Sodium 137 mmol/L (136-145) 09/05/18 20:40 Potassium 3.3 mmol/L (3.5-5.1) L 09/05/18 20:40 Chloride 103 mmol/L (98-107) 09/05/18 20:40 Carbon Dioxide 27 mmol/L (21-32) 09/05/18 20:40 Anion Gap 7.0 (3-11) 09/05/18 20:40 BUN 28 mg/dl (7-18) H 09/05/18 20:40 Creatinine 1.45 mg/dl (0.6-1.4) H 09/05/18 20:40 Est Cr Clr Drug Dosing 34.2 ml/min 09/05/18 20:40 Est GFR ( Amer) 50.2 09/05/18 20:40 Est GFR (Non-Af Amer) 43.3 09/05/18 20:40 BUN/Creatinine Ratio 19.2 (10-20) 09/05/18 20:40 Glucose 109 mg/dl (70-99) H 09/05/18 20:40 Calcium 8.8 mg/dl (8.5-10.1) 09/05/18 20:40 Total Bilirubin 0.8 mg/dl (0.2-1) 09/05/18 20:40 AST 56 U/L (15-37) H 09/05/18 20:40 ALT 42 U/L (12-78) 09/05/18 20:40 Alkaline Phosphatase 65 U/L (45-117) 09/05/18 20:40 Total Protein 6.2 gm/dl (6.4-8.2) L 09/05/18 20:40 Albumin 2.4 gm/dl (3.4-5.0) L 09/05/18 20:40 Globulin 3.8 gm/dl (2.5-4.0) 09/05/18 20:40 Albumin/Globulin Ratio 0.6 (0.9-2) L 09/05/18 20:40 Urine Color Yellow 09/05/18 22:13 Urine Appearance Clear (Clear) 09/05/18 22:13 Urine pH 7.5 (4.5-7.5) 09/05/18 22:13 Ur Specific [place] 1.014 (1.000-1.030) 09/05/18 22:13 Urine Protein Negative (Negative) 09/05/18 22:13 Urine Glucose (UA) Negative (Negative) 09/05/18 22:13 Urine Ketones Negative (Negative) 09/05/18 22:13 Urine Blood Negative (Negative) 09/05/18 22:13 Urine Nitrite Negative (Negative) 09/05/18 22:13 Urine Bilirubin Negative (Negative) 09/05/18 22:13 Urine Urobilinogen Negative (Negative) 09/05/18 22:13 Ur Leukocyte Esterase Negative (Negative) 09/05/18 22:13 Influenza Type A Ag Neg for Influ A (Neg) 09/05/18 20:56 Influenza Type B Ag Neg for Influ B (Neg) 09/05/18 20:56 Diagnostic Findings [place], [place] [phone] XRay Report Patient: SETH DUNBAR Date: 09/05/18 MR#: [id number]: [address] [facility] Acct ID:[id number]: [address] Date: [address] [place] [address] Zip: [place] [address] Age: 88Location: ED Sex: M Room/Bed: Att Phy: Diagnosis: FEVER, POST BRAIN SURGERY AND CHEMO TREATMENT Erum Phy: Nomi Corona MDService Date: 09/05/18 Fam Phy: Rasta Devine MDInterpreting Phy: Feliciano Nguyen MD Admit Phy: Ordering Phy: Fritz Grove MD cc: ~ XR chest 2V routine CLINICAL HISTORY: Cough. Evaluate for pneumonia. COMPARISON STUDY: Chest radiograph August 03, 2018. Chest CT August 05, 2018. FINDINGS: There is no pneumothorax or pleural effusion. Mild left basilar opacity favors atelectasis. Mild right upper lung opacity is noted. There is no evidence for pulmonary edema. Cardiomegaly is noted. IMPRESSION: Mild asymmetric right upper lung density. A small focus of pneumonia is favored however this could be artifactual. Electronically signed by: Feliciano Nguyen M.D. 09/05/2018 10:15 PM Dictated: 09/05/182212 Transcribed: 09/05/182212 [facility] Patient: SETH DUNBAR (Male) Age: 88 MR #: [id number] Status: Date: 09/06/18 02:00 Slices: [phone] History: PNEUMONIA Priors: Tech: GraceDemetrius nicholas @ [phone] Exams: CT CHEST Without Contrast Accession Numbers: [id number] Preliminary Findings Only See Final Report For Complete Findings CT CHEST Without Contrast: Comparison is made to CT chest on 08/05/2018. Similar trace bilateral pleural effusions right mild dependent and bibasilar atelectasis. No focal consolidation. Mild groundglass opacity in the right upper lobe may represent atelectasis, but infectious/inflammatory process is not entirely excluded. Nonspecific 3 mm nodule at the posterior lateral left lung base. Small calcified granuloma in the right upper lobe. Stable ectasia of the ascending aorta measuring 4.3 cm in diameter. Calcified mediastinal and right hilar lymph nodes. Coronary artery calcifications. Trace pericardial fluid. Small left hepatic cyst. Other small hypodensities in the liver are too small to definitively characterize. Calcified granuloma in the spleen. 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 Radiologist: Baldo Zendejas M.D. Study ready at 02:08 and initial results transmitted at 02:20 *This report constitutes a preliminary interpretation only. Non-acute findings felt to be unrelated to the clinical presentation may not be discussed in this report. The study will be interpreted and a final report will be generated by the local Radiologist the following shift. To reach the hospital radiology department call [phone]. If a discrepancy is found between the preliminary and final interpretations of this study, please notify us via our Client Portal at [email or web address], under QA Exams. You can also fax this report with a description of the discrepancy, or include the final report, to our daytime fax number [phone]. If faxing, please indicate the severity of discrepancy using one of the following categories: [ ] 1 - Agree/Informational [ ] 2 - Unlikely to Affect Management [ ] 3 - Possible Eventual Change of Management [ ] 4 - Probable Immediate Change of Management For all other patient related information, please fax us at [phone]. Code Status & VTE Plan Code Status Full code VTE Prophylaxis Plan VTE Prophylaxis will be ordered: Yes (1) Pneumonia Laterality: right Lung location: upper lobe of lung Pneumonia type: due to unspecified organism Qualified Code(s): J18.1 - Lobar pneumonia, unspecified organism (2) Anemia Anemia type: unspecified type Qualified Code(s): D64.9 - Anemia, unspecified
--- NOTE | 2018-09-06 06:42 | CT Scan Report ---
CT chest wo con CT DOSE: 251.36 mGy.cm HISTORY: Pneumonia. Dyspnea. PNEUMONIA, CORINE SO NO CONTRAST TECHNIQUE: Multiaxial CT images of the chest were performed without contrast. A dose lowering techni que was utilized adhering to the principles of ALARA. COMPARISON: 08/05/2018 FINDINGS: Moderate tortuosity and ectasia thoracic aorta. This is unchanged from the prior study. Min imal interstitial prominence right upper lung. Lungs otherwise appear clear. No acute focal infiltrat hung process. Slight chronic pleural thickening both lung bases. Mild stable cardiomegaly. IMPRESSION: Chronic change. No acute process. The above report was generated using voice recognition software. It may contain grammatical, syntax or spelling errors. Electronically signed by: Joseph Dover M.D. 09/06/2018 6:41 AM
[2018-09-06] MEDS: ALBUT/IPRATROP 3MG/0.5MG NEB 3 ML VIAL NEB SCH ×3 (07:16→15:26)
[2018-09-06] MEDS: PIPERACILLIN/TAZOBACTAM 3.375 GM in DEXTROSE 5% 100 ML IV SCH ×2 (07:45→15:52)
[2018-09-06] MEDS: CHOLECALCIFEROL 1,000 UNITS TAB PO SCH (07:46)
[2018-09-06] MEDS: FAMOTIDINE 20 MG TAB PO SCH ×2 (07:46→20:42)
[2018-09-06] MEDS: guaiFENesin 600 MG TABCR PO SCH ×2 (07:46→20:41)
[2018-09-06] MEDS: OMEGA-3 (PURIFIED FISH OIL) 1 GM CAP PO SCH ×2 (07:46→08:01)
[2018-09-06 09:07] LABS: Hemoglobin 12.5 g/dL (14.0-18.0); Mean Corpuscular Hgb Conc 34.7 g/dL (32-36); RDW Coefficient of Variation 13.9 % (11.5-14.5); RDW Standard Deviation 48.1 fL (36.4-46.3); Red Blood Count 3.79 M/uL (4.7-6.1); White Blood Count 6.01 K/uL (4.8-10.8)
[2018-09-06 09:40] LABS: BUN Creatinine Ratio 17.4 (10-20); Calcium 8.6 mg/dl (8.5-10.1); Creatinine Clr Calc Pharmacy 32.6 ml/min; Est GFR (African American) 47.4; Est GFR (Non-African American) 40.9; Potassium 3.1 mmol/L (3.5-5.1)
[2018-09-06 09:50] LABS: Mean Platelet Volume 8.5 fL (7.4-10.4); Platelet Count 59 K/uL (130-400); Platelet Estimate Decreased (Normal)
--- NOTE | 2018-09-06 10:21 | Infectious Disease Consult ---
Date of Consultation September 06, 2018 Assessment & Plan (1) Fever: 88-year-old male with recently diagnosed brain tumor on chemotherapy and intrathecal therapy with methotrexate, now with 1 day of fever with mild headache and neck stiffness, but no other obvious localizing signs or symptoms. Agree with empiric antibiotic use Zosyn, think that levofloxacin can be discontinued given lack of infiltrate on chest x-ray. Will consider sampling of CSF given presence of Ommaya reservoir and risk for ADJUSTMENT EXAMINER infection. Will discuss further with all involved. Will follow. History of Present Illness Reason for Consultation: Brain tumor, IV methotrexate, intrathecal therapy, UTI/pneumonia Attending Physician: Bro Hu, DO History of Present Illness 88-year-old male who has recently diagnosed brain tumor, hospitalized at [facility], undergoing IV methotrexate and intrathecal chemotherapy. He was discharged 1 day prior to his admission here and was being treated for urinary tract infection with Augmentin. He then developed fever of 100.3, and was referred here for admission for further management. He has been complaining of some sinus congestion and dry cough, also notes some posterior headache and mild neck stiffness. No photophobia. Blood cultures are pending. CT scan of the chest shows no obvious infiltrate. He has been started empirically on levofloxacin and Zosyn. Allergies Allergy/AdvReac Type Severity Reaction Status Date / Time Cegygzf-Ddn-Pyh Reductase Allergy Unknown CRESTOR,LIPITOR,ZOCOR-MUSCLE Verified 08/03/18 14:34 Inhibitor ACHES Home Medications Home Medications Medication Instructions Recorded Confirmed Type cholecalciferol (vitamin D3) 2,000 unit PO DAILY 08/03/18 09/05/18 History [Vitamin D3] omega 9-pyy-oci-fish oil [Fish Oil] 1 cap PO DAILY 08/03/18 09/05/18 History pravastatin 10 mg PO HS 08/03/18 09/05/18 History acetaminophen 650 mg PO Q6H PRN 09/05/18 09/05/18 History amoxicillin-pot clavulanate 1 tab PO BID 09/05/18 09/05/18 History budesonide 1 spray INTRANASAL DAILY 09/05/18 09/05/18 History famotidine 20 mg PO DAILY 09/05/18 09/05/18 History leucovorin calcium 25 mg PO Q6H 09/05/18 09/05/18 History tamsulosin 0.4 mg PO DAILY 09/05/18 09/05/18 History Patient History Medical History Heart disease (Chronic) CAD (coronary artery disease) Hyperlipemia Hypertension Surgical History Stented coronary artery (Chronic) H/O angioplasty (Resolved) Family History Mother Colorectal cancer Social History Preferred Language: Luxembourgish Communication Ability: Effective Tourist Information Officer Required: No Beliefs That Will Affect Care: None Current Living Situation: Alone Other Information That Helps Us Care for You: No Feels Safe at Home: Yes Safety Concerns: Feels Safe At This Time Smoking Status: Former smoker Hx Alcohol Use: Yes Alcohol type: beer Hx Substance Use: No Review of Systems Review of Systems: All systems reviewed & are unremarkable except as noted in HPI & below Physical Exam Constitutional: WD/WN, vitals as above comfortable; no acute distress , Chronically ill-appearing Eyes: PERRL, conjunctivae normal, anicteric sclerae ENMT: external ear and nose normal, oropharynx normal Neck: trachea midline, no thyromegaly neck nontender Respiratory: normal respiratory effort, lungs clear to auscultation normal percussion; does not use accessory muscles Cardiovascular: Rate/Rhythm: regular rate and regular rhythm Heart Sounds: normal S1 and normal S2; no gallop, no murmur and no cardiac rub Vessels: normal peripheral pulses; no JVD Gastrointestinal (Abdomen): normal bowel sounds, soft, nontender, no hepatosplenomegaly Musculoskeletal: no cyanosis or clubbing, extremities motor strength 5/5 Spine: thoracic spine normal to inspection and lumbar spine normal to inspection; no cervical spinal tenderness Skin: no rashes, warm and dry normal turgor Ommaya reservoir site appears uninfected Neurologic: patellar DTR's 2+ bilat, sensation intact no focal motor deficits Psychiatric: A+Ox3, euthymic affect Orientation: cooperative Lymphatic: no cervical or axillary lymphadenopathy no inguinal lymphadenopathy Results & Data Vital Signs (Past 12 Hours) Vital Signs Temp Pulse Pulse Pulse Resp BP BP 09/06/18 07:37 37.1 C 64 18 09/06/18 07:19 69 16 09/06/18 01:25 37.3 C 75 18 160/90 H 09/05/18 23:48 37.6 C H 81 18 09/05/18 23:01 70 19 129/76 09/05/18 23:00 74 19 09/05/18 22:50 76 24 09/05/18 22:40 79 20 09/05/18 22:31 78 20 151/81 H 09/05/18 22:30 93 H 25 H 09/05/18 22:20 82 18 09/05/18 22:16 90 21 BP Pulse Ox 09/06/18 07:37 115/63 94 09/06/18 07:19 93 09/06/18 01:25 95 09/05/18 23:48 134/80 94 09/05/18 23:01 92 09/05/18 23:00 09/05/18 22:50 95 09/05/18 22:40 95 09/05/18 22:31 95 09/05/18 22:30 95 09/05/18 22:20 93 09/05/18 22:16 93 Laboratory Results Short CBC 09/05/18 09/06/18 Range/Units 20:40 08:59 WBC 5.56 6.01 (4.8-10.8) K/uL Hgb 13.8 L 12.5 L (14.0-18.0) g/dL Hct 38.9 L 36.0 L (42-52) % Plt Count 66 L 59 L (130-400) K/uL BMP 09/05/18 09/06/18 20:40 08:59 Sodium 137 139 Potassium 3.3 L 3.1 L Chloride 103 105 Carbon Dioxide 27 27 BUN 28 H 27 H Creatinine 1.45 H 1.52 H Glucose 109 H 137 H Calcium 8.8 8.6 Liver Function 09/05/18 Range/Units 20:40 Total Bilirubin 0.8 (0.2-1) mg/dl AST 56 H (15-37) U/L ALT 42 (12-78) U/L Alkaline Phosphatase 65 (45-117) U/L Albumin 2.4 L (3.4-5.0) gm/dl Urine 09/05/18 Range/Units 22:13 Urine Color Yellow Urine Appearance Clear (Clear) Urine pH 7.5 (4.5-7.5) Ur Specific [place] 1.014 (1.000-1.030) Urine Protein Negative (Negative) Urine Glucose (UA) Negative (Negative) Diagnostic Findings CT chest wo con CT DOSE: 251.36 mGy.cm HISTORY: Pneumonia. Dyspnea. PNEUMONIA, CORINE SO NO CONTRAST TECHNIQUE: Multiaxial CT images of the chest were performed without contrast. A dose lowering technique was utilized adhering to the principles of ALARA. COMPARISON: 08/05/2018 FINDINGS: Moderate tortuosity and ectasia thoracic aorta. This is unchanged from the prior study. Minimal interstitial prominence right upper lung. Lungs otherwise appear clear. No acute focal infiltrative process. Slight chronic pleural thickening both lung bases. Mild stable cardiomegaly. IMPRESSION: Chronic change. No acute process. The above report was generated using voice recognition software. It may contain grammatical, syntax or spelling errors. Electronically signed by: Joseph Dover M.D. 09/06/2018 6:41 AM Dictated: 09/06/18 0638
--- NOTE | 2018-09-06 11:05 | Pharmacy Report ---
Pharmacy Abx Initial Consult - Date of Service September 06, 2018 - Pharmacy Dosing Scope Date of Consult: 09/06/18 Consultation requested by: Dr. Dumont Pharmacy is consulted to initiate Vancomycin IV dosing therapy, order appropriate labs and adjust drug dose/frequency. - Subjective The patient is a 88 year old M admitted on 09/06/18 00:31. - Objective Height: 5 ft 7 in Weight: 71.8 kg Vital Signs (Past 12hrs): Vital Signs Temp Pulse Pulse Pulse Resp BP BP 09/06/18 07:37 37.1 C 64 18 09/06/18 07:19 69 16 09/06/18 01:25 37.3 C 75 18 160/90 H 09/05/18 23:48 37.6 C H 81 18 09/05/18 23:01 70 19 129/76 09/05/18 23:00 74 19 BP Pulse Ox 09/06/18 07:37 115/63 94 09/06/18 07:19 93 09/06/18 01:25 95 09/05/18 23:48 134/80 94 09/05/18 23:01 92 09/05/18 23:00 Lab Results (24hrs): Laboratory Tests (24 Hours) 09/06/18 09/06/18 09/05/18 08:59 08:59 20:40 WBC 6.01 5.56 Neut # (Auto) 4.38 Creatinine 1.52 H Est Cr Clr Drug Dosing 32.6 09/05/18 20:40 WBC Neut # (Auto) Creatinine 1.45 H Est Cr Clr Drug Dosing 34.2 Micro Results: 09/05/18 21:35 Blood Culture - Pending Blood 09/05/18 20:40 Blood Culture - Pending Blood - Risk Factors for Resistance * Immunocompromised (chemotherapy for brain tumour) * Antimicrobial use within the last 90 days [Augmentin for recent UTI] - Assessment & Plan Assessment Mr. Jo is an 88 year old M admitted for possible Pneumonia and UTI. He has had recent intrathecal chemotherapy for brain tumour so he's at risk for ETL SOFTWARE ENGINEER infection. Plan Vancomycin for treatment of Pneumonia/ UTI/ ETL SOFTWARE ENGINEER infection. Vancomycin IV * Estimated PK Parameters: Vd 0.7 L/kg, Tyrese 0.031 hr-1, t1/2 22.4 hr * Loading dose: 1500 mg IV x 1 dose (21 mg/kg) given early this AM at 0300. * Maintenance dose: 1000 mg IV (14 mg/kg) every 24 hours * Goal trough level: 15 to 20 mcg/mL * Trough level ordered for 09/08/18 before dose at 2200 (after 2 maintenance doses). * A less than traditional dose has been selected due to likelihood of drug accumulation in elderly patient with slight renal impairment. Pharmacy will continue to follow and will adjust dose/frequency as necessary. Thank you.
[2018-09-06] MEDS ORDERED: POTASSIUM CHLORIDE 20 MEQ TABCR PO STA (11:29)
--- NOTE | 2018-09-06 16:17 | Hospitalist Progress Note ---
Date of Service September 06, 2018 Assessment & Plan (1) Pneumonia: - XR with concern for a possibly developing infiltrate; CT with possible upper lobe infiltrate but not completely confirmatory; could check procalcitonin in AM -- Reports cough and sputum production is mostly upper airway related to post-nasal drip from sinus congestion but denies sinus presssure - Given his immunocompromised state and multiple hospital exposures and fever was started on broad-spectrum Abx - Zosyn, Levofloxacin, Vanc - Duonebs PRN; Mucinex BID - BCx pending - ID consulted - appreciate input (2) Acute kidney injury: - This is in the setting of reduced oral intake and high-dose methotrexate use. - Cr was around 1.9 per family after treatment and currently at 1.52 - Family reports he doesn't drink much and therefore will do gentle maintenance fluids and trend renal function; avoid nephrotoxins Present on Admission?: Yes (3) Fever: - Low grade fever prior to admission but since has been afebrile; concern given immunocompromised state - Treating for a pneumonia however not completely clear on CT - could consider repeat CXR in AM to see if any further development is noted - Possibly viral sinusitis as most of his symptoms correlate to this at current time and the short nature of the symptoms would lead to likely viral - 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 -- Discussed with family about the option of testing CSF fluid but would have to assess ability to access this in our facility but family recommends that if access to the reservoir is needed they would prefer this be completed at [facility] - at this time he is non-toxic and doesn't suggest PROVIDER NETWORK MGR infection but will need to remain in differential - Suggested UTI when leaving 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 for neurosurgery/oncology - underwent high dose methotrexate (07/31) and intrathecal chemotherapy (3/28) - plans for transition to outpatient intrathecal chemotherapy/methotrexate in [facility] - Has an Ommaya reservoir placed a couple weeks ago with well-healed incision - no drainage or erythema a reservoir site -- Family recommends if any access or concerns with the reservoir are needed that this be performed at [facility] - Leucovorin 25 mg Q6H Present on Admission?: Yes (6) Thrombocytopenia: - Likely in the setting of chemotherapy treatment - no signs of bleeding, petechiae, purpura - plts currently 59 and will trend Present on Admission?: Yes (7) Hyperlipidemia LDL goal <70: - Pravastatin 10 mg HS Present on Admission?: Yes Subjective Reports feeling well overall but tired. Currently complaints of post-nasal drip and sinus congestion but states breathing feels normal. No fevers since in the hospital. Is tired but hasn't slept much today. Also notes some mild posterior head pressure but no meningeal signs appreciated on examination. No sinus pressure noted. Updated family members at bedside today. Discussed findings and current plan. Discussed if needed to access Ommaya reservoir they would recommend that be done at [facility]. Review of Systems Constitutional: + fatigue; no fever and no chills Eyes: no worsening vision Ear, Nose, Mouth, Throat: + nasal congestion, + nasal discharge and + post nasal drip; no facial pain, no sinus pain/pressure, no sore throat, no hoarseness and no dysphagia Respiratory: + cough; no dyspnea and no wheezing Cardiovascular: no chest pain, no palpitations, no lightheadedness and no edema Gastrointestinal: no abdominal pain, no nausea, no vomiting, no constipation and no diarrhea/loose stools Genitourinary: no dysuria Musculoskeletal: no stiffness and no body aches Integumentary: no rash Physical Exam Constitutional: well developed and well nourished; no acute distress and not ill appearing Eyes: + anicteric sclerae ENMT: Ears: no hearing impairment Nose: no sinus tenderness Throat: no posterior oropharynx abnormality Neck: normal visual inspection and trachea midline; no nuchal rigidity Respiratory: normal respiratory effort, lungs clear to auscultation Cardiovascular: RRR, no murmur, no edema Gastrointestinal (Abdomen): Inspection/Auscultation: normal bowel sounds Percussion/Palpation: abdomen soft; abdomen nontender Musculoskeletal: Head/Neck/Chest: normocephalic and head atraumatic Extremities: no cyanosis and no clubbing Skin: no rashes, warm and dry well approximated incision on scalp at presence of Ommaya reservoir without drainage or erythema Neurologic: moves all extremities Psychiatric: A+Ox3, euthymic affect Results & Data Vital Signs (Past 12 Hours) Vital Signs Temp Pulse Resp BP BP Pulse Ox 09/06/18 15:32 37.3 C 75 18 130/79 92 09/06/18 15:27 71 18 96 09/06/18 11:29 37.3 C 74 16 128/78 94 09/06/18 11:09 70 18 96 09/06/18 07:37 37.1 C 64 18 115/63 94 09/06/18 07:19 69 16 93 (1) Pneumonia Laterality: right Lung location: upper lobe of lung Pneumonia type: due to unspecified organism Qualified Code(s): J18.1 - Lobar pneumonia, unspecified organism
[2018-09-06] MEDS: SODIUM CHLORIDE 0.9% 1000ML 1,000 ML IV SCH (18:02)
[2018-09-06] MEDS: ACETAMINOPHEN 325 MG TAB PO PRN ×2 (18:26→20:44)
[2018-09-06] MEDS ORDERED: ALBUT/IPRATROP 3MG/0.5MG NEB 3 ML VIAL NEB PRN (18:31)
[2018-09-06] MEDS: TAMSULOSIN HCL 0.4 MG CAP PO SCH (20:41)
[2018-09-06] MEDS: PRAVASTATIN SOD 10 MG TAB PO SCH (20:42)
[2018-09-06] MEDS ORDERED: DiphenhydrAMINE HCL 50 MG/ML VIAL IV STA (21:24)
[2018-09-06] MEDS: VANCOMYCIN HCL 1,000 MG in SODIUM CHLORIDE 0.9% 250 ML IV SCH (21:53)
[2018-09-07] MEDS: LEUCOVORIN CALCIUM 25 MG PO SCH ×4 (00:22→18:38)
[2018-09-07] MEDS: PIPERACILLIN/TAZOBACTAM 3.375 GM in DEXTROSE 5% 100 ML IV SCH ×3 (00:22→17:31)
[2018-09-07 06:06] LABS: Hematocrit (blood only) 35.2 % (42-52); Hemoglobin 12.3 g/dL (14.0-18.0); Mean Corpuscular Hgb Conc 34.9 g/dL (32-36); Mean Corpuscular Volume 94.4 fL (80-100); RDW Coefficient of Variation 13.8 % (11.5-14.5); RDW Standard Deviation 47.4 fL (36.4-46.3); Red Blood Count 3.73 M/uL (4.7-6.1); White Blood Count 7.42 K/uL (4.8-10.8)
[2018-09-07 06:31] LABS: Mean Platelet Volume 9.4 fL (7.4-10.4); Platelet Count 55 K/uL (130-400)
[2018-09-07 06:33] LABS: BUN Creatinine Ratio 16.1 (10-20); Basophils # (auto) 0.02 K/uL (0-0.2); Basophils % (auto) 0.3 %; Calcium 8.5 mg/dl (8.5-10.1); Creatinine Clr Calc Pharmacy 33.1 ml/min; Eosinophils # (auto) 0.25 K/uL (0-0.5); Eosinophils % (auto) 3.4 %; Est GFR (African American) 48.2; Est GFR (Non-African American) 41.6; Immature Granulocytes # (auto) 0.02 K/uL (0.00-0.02); Immature Granulocytes % (auto) 0.3 %; Lymphocytes # (auto) 0.56 K/uL (1.2-3.4); Lymphocytes % (auto) 7.5 %; Monocytes # (auto) 0.39 K/uL (0.11-0.59); Monocytes % (auto) 5.3 %; Neutrophils # (auto) 6.18 K/uL (1.4-6.5); Neutrophils % (auto) 83.2 %; Potassium 3.2 mmol/L (3.5-5.1); RBC Morphology Unremarkable
[2018-09-07] MEDS: FAMOTIDINE 20 MG TAB PO SCH ×2 (08:01→20:19)
[2018-09-07] MEDS: OMEGA-3 (PURIFIED FISH OIL) 1 GM CAP PO SCH (08:01)
[2018-09-07] MEDS: ACETAMINOPHEN 325 MG TAB PO PRN (08:01)
[2018-09-07] MEDS: CHOLECALCIFEROL 1,000 UNITS TAB PO SCH (08:01)
[2018-09-07] MEDS: guaiFENesin 600 MG TABCR PO SCH ×2 (08:01→20:20)
[2018-09-07] MEDS: SODIUM CHLORIDE 0.9% 1000ML 1,000 ML IV SCH ×2 (08:02→23:39)
[2018-09-07] MEDS ORDERED: POTASSIUM CHLORIDE 20 MEQ TABCR PO ONE (08:15)
[2018-09-07] MEDS: DEXAMETHASONE CONC 3.75 MG, NYSTATIN 30 ML, DiphenhydrAMINE Syrup 300 MG, ORA-SWEET SYR... PO PRN (11:55)
--- NOTE | 2018-09-07 12:43 | XRay Report ---
XR chest 1V portable CLINICAL HISTORY: F/U possible RUL pneumonia COMPARISON STUDY: Chest CT September 06, 2018. FINDINGS: There is no pneumothorax or pleural effusion. Left basilar opacity favors atelectasis. Mild cardiomegaly is unchanged. There is no evidence for pulmonary edema. The possible right upper lobe a irspace opacity shown on radiographs September 05, 2018 is not identified. IMPRESSION: 1. No acute cardiopulmonary findings. The possible right upper lobe airspace opacity shown on prior c hest radiograph is not identified. 2. Left basilar opacity which favors atelectasis. Electronically signed by: Feliciano Nguyen M.D. 09/07/2018 12:42 PM
--- NOTE | 2018-09-07 15:06 | Hospitalist Progress Note ---
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 which could potentially cause a DISCHARGE RN infection - currently site looks well and no meningeal signs/nuchal rigidity appreciated - he does endorse some mild posterior head pressure which is actually reproducible to palpation - endorses a H/O shingles of the scalp but cannot recall where this outbreak was and currently no rash or lesion is noted to this tender area -- Discussed with family about the option of testing CSF fluid but would have to assess ability to access this in our facility but family recommends that if access to the reservoir is needed they would prefer this be completed at [facility] - at this time he is non-toxic and doesn't suggest DISCHARGE RN infection but will need to remain in differential - Suggested UTI when leaving [facility] a few days prior and had a couple days Augmentin - held due to Abx above - BCx prelim are NGTD - Could even be drug fever in the setting of treatment/cancer (2) Pneumonia: - XR with concern for a possibly developing infiltrate; CT with possible upper lobe infiltrate but not completely confirmatory and repeat CXR with clear lungs; procalcitonin negative -- Reports cough and sputum production is mostly upper airway related to post-nasal drip from sinus congestion but denies sinus pressure - Unlikely this is source and maybe more viral related to sinusitis? - Given his immunocompromised state and multiple hospital exposures and fever was started on broad-spectrum Abx - Zosyn, Levofloxacin, Vanc - Duonebs PRN; Mucinex BID - BCx prelim with NGTD - ID consulted - appreciate input (3) Mucositis: - Likely due to chemotherapy - Magic mouthwash PRN Present on Admission?: Yes (4) Acute kidney injury: - This is in the setting of reduced oral intake and high-dose methotrexate use. - Cr was around 1.9 per family after treatment and currently at 1.5 - Family reports he doesn't drink much and therefore will do gentle maintenance fluids and trend renal function; avoid nephrotoxins (5) UTI (urinary tract infection): - Treatment as above (6) Primary DISCHARGE RN lymphoma: - Pt with recent brain bx confirming DISCHARGE RN lymphoma and follows with [facility] for neurosurgery/oncology - underwent high dose methotrexate (07/31) and intrathecal chemotherapy (08/01) - plans for transition to outpatient intrathecal chemotherapy/methotrexate in [facility] - Has an Ommaya reservoir placed a couple weeks ago with well-healed incision - no drainage or erythema a reservoir site -- Family recommends if any access or concerns with the reservoir are needed that this be performed at [facility] - Leucovorin 25 mg Q6H Present on Admission?: Yes (7) Thrombocytopenia: - Likely in the setting of chemotherapy treatment and is an acute on chronic issue - no signs of bleeding, petechiae, purpura - plts currently 55 and will trend Present on Admission?: Yes (8) Hyperlipidemia LDL goal <70: - Pravastatin 10 mg HS Subjective Reports feeling better with some rest. Still with a productive cough from post- nasal drip. Reports breathing well. Did have a low grade fever this AM which has since resolved. So far no clear infectious etiology. Maybe just viral for URI/sinusitis No neurological signs present. Does state the pressure in his posterior head is present with extended his neck back. Pain is actually reproducible with palpation. Does endorse H/O shingles in the past on his head but cannot recall where exactly on the scalp this was located. Also complaining of mouth/tongue soreness. Tongue slightly reddened but not white patches. Possibly some mucositis and did improve with magic mouthwash Tolerating a diet but reports only a fair appetite. States he normally doesn't feel hungry. Updated family at bedside today. Review of Systems Constitutional: no fever and no chills Ear, Nose, Mouth, Throat: + nasal congestion and + mouth lesions; no dry mouth, no sore throat and no dysphagia Respiratory: + cough; no dyspnea and no wheezing Cardiovascular: no chest pain, no palpitations and no edema Gastrointestinal: no abdominal pain, no nausea, no vomiting, no constipation and no diarrhea/loose stools Genitourinary: no dysuria Musculoskeletal: no body aches Integumentary: no rash Physical Exam Constitutional: well developed and well nourished; no acute distress and not ill appearing Eyes: + anicteric sclerae ENMT: Ears: no hearing impairment Nose: no sinus tenderness Mouth: no tongue abnormality Throat: no posterior oropharynx abnormality mild erythema of tongue without white patches Neck: normal visual inspection and trachea midline; no nuchal rigidity Respiratory: normal respiratory effort, lungs clear to auscultation Cardiovascular: RRR, no murmur, no edema Gastrointestinal (Abdomen): Inspection/Auscultation: normal bowel sounds Percussion/Palpation: abdomen soft; abdomen nontender Musculoskeletal: Head/Neck/Chest: normocephalic, head atraumatic, neck supple and + scalp tenderness (R posterior element of head without rash/vesicles) Extremities: no cyanosis and no clubbing Skin: no rashes, warm and dry Neurologic: moves all extremities; no meningeal signs Psychiatric: A+Ox3, euthymic affect Results & Data Vital Signs (Past 12 Hours) Vital Signs Temp Pulse Pulse Resp BP Pulse Ox 09/07/18 11:51 37.3 C 68 66 17 126/72 93 09/07/18 09:20 37.5 C 09/07/18 07:36 38.0 C H 71 16 158/84 H 90 (1) Pneumonia Laterality: right Lung location: upper lobe of lung Pneumonia type: due to unspecified organism Qualified Code(s): J18.1 - Lobar pneumonia, unspecified organism
[2018-09-07] MEDS ORDERED: BEER 1 CAN PO SCH (17:00)
--- NOTE | 2018-09-07 17:41 | CT Scan Report ---
CT OF THE HEAD WITHOUT CONTRAST CLINICAL HISTORY: Fall; Thrombocytopenia; Brain Mass/Lymphoma COMPARISON STUDY: Head CT and MRI of the brain August 03, 2018. CT DOSE: 537.48 mGy.cm TECHNIQUE: Helical axial images of the head were obtained without IV contrast. Automated exposure con trol was utilized for the study. A dose lowering technique was utilized adhering to the principles o f ALARA. FINDINGS: Right frontal ventriculostomy catheter is in place. There is no evidence for hydrocephalus. The basilar cisterns are patent. Prominence of the extra-axial CSF spaces is unchanged. The previous ly identified masses within a right periventricular distribution on MRI of August 03, 2018 are not east[place] ntified on this exam. Edema within the right parietal and temporal lobes has diminished. There is res idual hypodensity. Otherwise, the appearance of the brain is unchanged. There are no findings to sugg est acute dural sinus thrombosis or acute territorial infarct. There is no calvarial fracture. IMPRESSION: 1. No acute intracranial findings. 2. Right frontal ventriculostomy catheter in place. No hydrocephalus. 3. Previously described right periventricular masses on MRI of August 03, 2018 not evident on this une nhanced head CT. Interval decrease in associated edema. Electronically signed by: Feliciano Nguyen M.D. 09/07/2018 5:40 PM
[2018-09-07] MEDS: TAMSULOSIN HCL 0.4 MG CAP PO SCH (20:20)
[2018-09-07] MEDS: PRAVASTATIN SOD 10 MG TAB PO SCH (20:20)
[2018-09-07] MEDS: VANCOMYCIN HCL 1,000 MG in SODIUM CHLORIDE 0.9% 250 ML IV SCH (21:39)
[2018-09-07] MEDS ORDERED: LEVOFLOXACIN/D5W 750 MG/150 ML BAG IV SCH (23:00)
[2018-09-08] MEDS: PIPERACILLIN/TAZOBACTAM 3.375 GM in DEXTROSE 5% 100 ML IV SCH ×2 (01:49→07:38)
[2018-09-08] MEDS: LEUCOVORIN CALCIUM 25 MG PO SCH ×3 (01:51→12:32)
[2018-09-08 06:35] LABS: Creatinine Clr Calc Pharmacy 34.4 ml/min; Est GFR (African American) 50.6; Est GFR (Non-African American) 43.7
[2018-09-08] MEDS: guaiFENesin 600 MG TABCR PO SCH (07:34)
[2018-09-08] MEDS: OMEGA-3 (PURIFIED FISH OIL) 1 GM CAP PO SCH (07:34)
[2018-09-08] MEDS: FAMOTIDINE 20 MG TAB PO SCH (07:35)
[2018-09-08] MEDS: CHOLECALCIFEROL 1,000 UNITS TAB PO SCH (07:35)
[2018-09-08] MEDS: DEXAMETHASONE CONC 3.75 MG, NYSTATIN 30 ML, DiphenhydrAMINE Syrup 300 MG, ORA-SWEET SYR... PO PRN (07:39)
[2018-09-08] MEDS: ACETAMINOPHEN 325 MG TAB PO PRN ×2 (07:46→15:58)
[2018-09-08 09:03] LABS: Hematocrit (blood only) 33.7 % (42-52); Hemoglobin 11.6 g/dL (14.0-18.0); Mean Corpuscular Hgb Conc 34.4 g/dL (32-36); Mean Corpuscular Volume 94.1 fL (80-100); RDW Coefficient of Variation 13.9 % (11.5-14.5); RDW Standard Deviation 48.1 fL (36.4-46.3); Red Blood Count 3.58 M/uL (4.7-6.1); White Blood Count 5.06 K/uL (4.8-10.8)
[2018-09-08 09:20] LABS: BUN Creatinine Ratio 18.7 (10-20); Calcium 8.8 mg/dl (8.5-10.1); Creatinine Clr Calc Pharmacy 39.3 ml/min; Est GFR (African American) 59.5; Est GFR (Non-African American) 51.3; Potassium 3.3 mmol/L (3.5-5.1)
[2018-09-08 09:24] LABS: Mean Platelet Volume 9.5 fL (7.4-10.4); Platelet Count 45 K/uL (130-400)
[2018-09-08] MEDS: SODIUM CHLORIDE 0.9% 1000ML 1,000 ML IV SCH (12:42)
--- NOTE | 2018-09-08 21:16 | Discharge Summary ---
Date of Service September 08, 2018 Admission HPI Per Admitting Provider The patient is a 88-year-old male, last admitted to 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 During that admission he had improved response to dexamethasone, was also seen by Dr. Galen Aguiar from radiation oncology, who had asked that the patient be seen at [facility] for brain biopsy for definitive diagnosis. Since that time, the patient has been seen at [facility], had a brain biopsy performed, DOUBLE SURFACE OPERATOR reservoir placed, and since that time is undergone IV methotrexate, intrathecal chemotherapy, and presently is on leucovorin 25 mg p.o. every 6 hours. The patient is significantly fatigued, but does wake up from sleep, and is able to contribute to his HPI and review of systems, but the majority of information is gathered from his [id number]-cl-vqx who is present. She reports that he developed a temperature to 100.5 degrees earlier in the day prior to arrival, and has had a dry cough, runny nose, postnasal drip and generalized weakness. She reports that he had just been discharged from [facility] 1 day ago, and the patient had just been started on Augmentin for possible UTI. She reports that his peak creatinine had been 1.94, that was attributed to administration of methotrexate, which he was given IV on Sunday, and then received intrathecal chemotherapy on Sunday. The patient himself voices little in the way of complaints, but that appears to be his history of not complaining much when he is not feeling well, per family. Principal Diagnosis Fever, Unknown Origin in Immunocompromised Individual Discharge Exam Constitutional well developed and well nourished; no acute distress and not ill appearing Eyes + anicteric sclerae ENMT Ears: no hearing impairment Nose: no sinus tenderness Mouth: no tongue abnormality Throat: no posterior oropharynx abnormality mild erythema of tongue/mucosa Neck normal visual inspection and trachea midline; no nuchal rigidity Respiratory normal respiratory effort, lungs clear to auscultation Cardiovascular RRR, no murmur, no edema Gastrointestinal (Abdomen) Inspection/Auscultation: normal bowel sounds Percussion/Palpation: abdomen soft; abdomen nontender Musculoskeletal Head/Neck/Chest: normocephalic, head atraumatic, neck supple and + scalp tenderness (R posterior element of head without rash/vesicles) Extremities: no cyanosis and no clubbing Skin no rashes, warm and dry Neurologic moves all extremities; no meningeal signs Psychiatric A+Ox3, euthymic affect Discharge Data Allergies Allergy/AdvReac Type Severity Reaction Status Date / Time Jtkgqrg-Hyj-Ppk Reductase Allergy Unknown CRESTOR,LIPITOR,ZOCOR-MUSCLE Verified 08/03/18 14:34 Inhibitor ACHES Consultations 09/05/18 22:44 ED Decision to Admit Stat 09/06/18 01:30 Consult Case Management - Discharge Planning Routine 09/06/18 06:03 Consult Infectious Diseases Routine 09/08/18 14:06 Burn CD for patient Stat Ordered Studies 09/06/18 01:30 CT chest wo con Urgent 09/07/18 16:42 CT head/brain wo con Routine Hospital Course (1) Fever: - Low grade fever prior to admission and reported 100 F this AM; concern given immunocompromised state - Initial concern was for PNA however CT and F/U CXR without findings; no other direct source identified - only complaints are of sinus congestion/post-nasal drip - Possibly viral sinusitis as most of his symptoms correlate to this at current time and the short nature of the symptoms would lead to likely viral - He does have a Ommaya reservoir which could potentially cause a DOUBLE SURFACE OPERATOR infection - currently site looks well and no meningeal signs/nuchal rigidity appreciated - he does endorse some mild posterior head pressure which is actually reproducible on palpation - endorses a H/O shingles of the scalp but cannot recall where this outbreak was and currently no rash or lesion is noted to this tender area - At this time he is non-toxic and blood pressure acceptable - however continues with intermittent low grade fevers (99-100) - Suggested UTI when leaving [facility] a few days prior and had a couple days Augmentin - held due to Abx above - BCx prelim are NGTD - Could even be drug fever in the setting of treatment/cancer? - Treated with Zosyn, Levofloxacin, and Vancomycin during hospital stay - Zosyn therapy would cross blood-brain barrier No direct focal complaints to explain ongoing fever. Could be a viral meningitis given complaints of headache but again not much in the essence of focal findings and some of his head pain is oddly reproducible on palpation. Reports that he is feeling better over past couple days. Discussed with his neurosurgeon Dr. Francisca washington at [facility]. Agree to have him transfer to [facility] for tapping of the Ommaya reservoir with culture to R/O DOUBLE SURFACE OPERATOR infection and further work-up if necessary. (2) Mucositis: - Likely due to chemotherapy - Magic mouthwash PRN (3) Acute kidney injury: - This is in the setting of reduced oral intake and high-dose methotrexate use. 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 and follows with [facility] for neurosurgery/oncology - underwent high dose methotrexate (08/31) and intrathecal chemotherapy (09/01) - plans for transition to outpatient intrathecal c hemotherapy/methotrexate in [facility] - Has an Ommaya reservoir placed a couple weeks ago with well-healed incision - no drainage or erythema a reservoir site -- Family recommends if any access or concerns with the reservoir are needed that this be performed at [facility] - Leucovorin 25 mg Q6H x 12 doses which finished on 09/08 (6) Thrombocytopenia: - Likely in the setting of chemotherapy treatment and is an acute on chronic issue - no signs of bleeding, petechiae, purpura - plts currently 45 (7) Hyperlipidemia LDL goal <70: - Pravastatin 10 mg HS Total Time Total Time Spent Total Time Spent (In Minutes): Greater than 30 minutes Discharge Plan Discharge Items Patient Disposition: Transfer Acute Care Hospital Reason For Visit: HCAP, IMMUNOCOMPROMISED Discharge Diagnosis: Fever, Unknown Etiology Discharge Goals: Decrease discomfort, Improve function and Increase independence Activity: Resume your previous activity Non-emergency contact: Primary Care Provider and Surgeon Call non-emergency contact if: you have any medication questions, your symptoms worsen and you have a fever Follow-up/Referrals: Chaparro Corona MD [Primary Care Provider] - Diet: Regular Addtl Provider Instructions: Fever, Unknown Etiology: - Patient presented for fever of 100 F on admission. Only symptoms were of sinus congestion and post-nasal drip. Initial CXR questioned RUL infiltrate however F/U CT and CXR without evidence of pneumonia -- Blood Cx without growth to date but are preliminary; Urine Cx unremarkable (was on Augmentin x 2 days prior to presentation for UTI); no diarrhea to suggest C. diff or colitis; skin unremarkable; influenza negative -- Complained of some reproducible posterior head pain which is tender to touch - no lesions or rash - reports H/O shingles on the head but cannot recall location of this - Sustained a fall on 09/07 that appears mechanical in nature and did not hit his head - noncontrast head CT unremarkable for any acute findings to shed light on fever - No abdominal symptoms - Abd CT has not been obtained at this point - could consider panscan if necessary; could consider tick-borne illness but no other specific symptoms - Has a Ommaya reservoir placed recently which incision site looks well without signs of infection - may need tap to assess for DOUBLE SURFACE OPERATOR infection - Continues with low grade AM fevers that resolve during the day. -- 09/05 at 2300 - 37.7 C -- 09/06 - remained afebrile -- 09/07 0730 - 38 C -- 09/08 at midnight at 0400 - 37.7 C - Has been on broad spectrum antibiotics - Zosyn, Levaquin, and Vancomycin - Blood pressure acceptable; non-toxic appearing; Neutrophils acceptable Mucositis: - Likely due to chemotherapy - Magic mouthwash PRN Acute kidney injury: RESOLVED - This is in the setting of reduced oral intake and high-dose methotrexate use. 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 and follows with [facility] for neurosurgery/oncology - underwent high dose methotrexate (07/31) and intrathecal chemotherapy (08/01) - plans for transition to outpatient intrathecal chemotherapy/methotrexate in [facility] - Has an Ommaya reservoir placed a couple weeks ago with well-healed incision - no drainage or erythema a reservoir site -- Family recommends if any access or concerns with the reservoir are needed that this be performed at [facility] - Leucovorin 25 mg Q6H x 12 doses which was completed today 09/08 - Family concerned of his flat affect and depression - would benefit from psychiatric evaluation/therapy/medication Thrombocytopenia: - Likely in the setting of chemotherapy treatment and is an acute on chronic issue - no signs of bleeding, petechiae, purpura - plts currently 45 Prescriptions: Continued pravastatin 10 mg tablet 10 mg PO HS RF: 0 cholecalciferol (vitamin D3) [Vitamin D3] 2,000 unit Capsule 2,000 unit PO DAILY RF: 0 omega 2-hhr-vzo-fish oil [Fish Oil] 1,000 mg (120 mg-180 mg) Capsule 1 cap PO DAILY RF: 0 budesonide 32 mcg/actuation [place],Non-Aerosol 1 spray INTRANASAL DAILY RF: 0 acetaminophen 650 mg Tablet Extended Release 650 mg PO Q6H PRN (Reason: Pain) RF: 0 famotidine 20 mg tablet 20 mg PO DAILY RF: 0 tamsulosin 0.4 mg capsule 0.4 mg PO DAILY RF: 0 Discontinued leucovorin calcium 25 mg tablet 25 mg PO Q6H RF: 0 amoxicillin-pot clavulanate 500-125 mg tablet 1 tab PO BID RF: 0 Stand-Alone Forms: [facility] Discharge Orders: Discharge Order (Routine); Ordered 09/08/18 Ordered By: Rachelle Parr Admission Data Admit Date/Time: 09/06/18 00:31 Attending Provider: Jamia Adams Admit Provider: Odilon Dumont Primary Care Provider: Chaparro Corona Other Providers: Odilon Dumont ; Ken Lynne Service: Medical Other Interventions: Discharge Summary Assessment (RN) Last Done: 09/08/18 13:51 Pending Studies at Discharge: No DC Date/Time DO NOT enter until pt leaves facility: 09/08/18 17:03 Supervising Physician Co-Signing Physician Notes PA Supervision Note: I did not personally see or examine the patient today, but I verified all cam points of ALDO Parr's assessment and plan with the following exceptions/additions: None
[2018-09-08] MEDS ORDERED: VANCOMYCIN TROUGH ONE (21:30)
== END 2018-09-08 17:03 | disposition short-term general hospital (02) | DRG 864 ==
LOC: ED 19:54 → SUATTDRO 09-06 00:31 → 4E 09-06 00:31
DX: D64.9 Anemia, unspecified; N17.9 Acute kidney failure, unspecified; I25.10 Atherosclerotic heart disease of native coronary artery without angina pectoris; D69.6 Thrombocytopenia, unspecified; D43.2 Neoplasm of uncertain behavior of brain, unspecified; I10 Essential (primary) hypertension; Z87.891 Personal history of nicotine dependence; N39.0 Urinary tract infection, site not specified; C85.89 Other specified types of non-Hodgkin lymphoma, extranodal and solid organ sites; T45.1X5A Adverse effect of antineoplastic and immunosuppressive drugs, initial encounter; E78.5 Hyperlipidemia, unspecified; K12.32 Oral mucositis (ulcerative) due to other drugs; R50.9 Fever, unspecified

== ENCOUNTER 2018-09-25 13:29 | Inpatient (IN) ==
[2018-09-25] MEDS ORDERED: SODIUM CHLORIDE 0.9% 500 ML IV SCH (13:45)
--- NOTE | 2018-09-25 14:19 | XRay Report ---
XR chest 1V portable HISTORY: 88 years-old Male weakness acute weakness COMPARISON: Chest radiograph 09/07/2018 and 09/05/2018, chest CT 09/06/2018 TECHNIQUE: Portable AP view of the chest FINDINGS: Cardiac lead is mildly enlarged. Pulmonary vascular congestion with mild interstitial coarsening. No pneumothorax, or large pleural effusion. Mild right hemidiaphragm elevation with mild subsegmental bi basilar opacities. Mild blunting of the costophrenic angles. Degenerative changes of the shoulders an d spine. Calcification of the thoracic aortic arch. IMPRESSION: 1. Cardiomegaly with suggestion of mild pulmonary edema. 2. Minimal bibasilar opacities suggest atelectasis. The above report was generated using voice recognition software. It may contain grammatical, syntax o r spelling errors. Electronically signed by: Antwan Becerril M.D. 09/25/2018 2:17 PM
[2018-09-25 14:40] LABS: Hematocrit (blood only) 35.8 % (42-52); Hemoglobin 12.6 g/dL (14.0-18.0); Mean Corpuscular Hgb Conc 35.2 g/dL (32-36); Mean Platelet Volume 10.4 fL (7.4-10.4); Platelet Count 191 K/uL (130-400); RDW Coefficient of Variation 14.8 % (11.5-14.5); RDW Standard Deviation 49.3 fL (36.4-46.3); Red Blood Count 3.89 M/uL (4.7-6.1); White Blood Count 13.78 K/uL (4.8-10.8)
--- NOTE | 2018-09-25 14:49 | Emergency Department Note ---
Entered by Cindy Belcher acting as a scribe for Gabino Leal DO History of Present Illness General Chief complaint: Lethargic Time Seen by Provider: 09/25/18 13:40 Source: patient History of Present Illness Onset (ago): day(s) 2 Location: head Pain Consistency: + other (persistent) Quality: + other (lethargy) Associated symptoms: + denies other symptoms (abdominal pain), + fever/chills (fever), + weakness and + other (hiccups, low blood pressure, gargled speech); no headaches The patient is an 88 year old male who presents to the ED with complaints of persistent lethargy starting 2 days ago. Per the patients daughter, the patient has primary central nervous system lymphoma. She states that it was diagnosed on August 03. She reports that he has been receiving oral chemo, but recently had an acute kidney injury that placed a stop to the one chemo treatment he was receiving. She states that for 6 days the patient has had constant hiccups. She reports that when the lethargy started, they attributed it to the fact that he hasnt been able to get any good rest because of them. She notes that they took him to his PCP who prescribed him Thorazine, but it has offered no relief. The patients daughter states that since then he has had increasing weakness and cant stay awake at all. She notes that last night he had a fever of 102 and this morning it was 101, but before they left it was 97.4. She reports that for the past 2 hours as well his blood pressure has been low with a diastolic pressure of 54. She states that since he hasnt gotten any better, she decided to bring him in. The patients daughter complains of his speech becoming gargled overnight. The patient denies abdominal pain, chest pain, and a headache. She notes that after his results come back, his oncologist in [place], Dr. Hernandez, wants updated. Home Medications Home Medications Medication Instructions Recorded Confirmed Type cholecalciferol (vitamin D3) 2,000 unit PO DAILY 08/03/18 09/05/18 History [Vitamin D3] omega 5-mjv-qqi-fish oil [Fish Oil] 1 cap PO DAILY 08/03/18 09/05/18 History pravastatin 10 mg PO HS 08/03/18 09/05/18 History acetaminophen 650 mg PO Q6H PRN 09/05/18 09/05/18 History budesonide 1 spray INTRANASAL DAILY 09/05/18 09/05/18 History famotidine 20 mg PO DAILY 09/05/18 09/05/18 History tamsulosin 0.4 mg PO DAILY 09/05/18 09/05/18 History Allergies Allergy/AdvReac Type Severity Reaction Status Date / Time Jkrbmod-Kja-Ofk Reductase Allergy Unknown CRESTOR,LIPITOR,ZOCOR-MUSCLE Verified 08/03/18 14:34 Inhibitor ACHES Past Med/Surg History Medical History Mucositis (Acute) Acute kidney injury (Acute) Primary BURSAR lymphoma (Chronic) Hyperlipidemia LDL goal <70 (Chronic) UTI (urinary tract infection) (Acute) Pneumonia (Acute) Anemia (Acute) Immunocompromised (Acute) Thrombocytopenia (Chronic) Vasogenic edema (Acute) Brain tumor (Chronic) Altered mental status (Acute) Heart disease (Chronic) CAD (coronary artery disease) Hyperlipemia Hypertension Surgical History Stented coronary artery (Chronic) H/O angioplasty (Resolved) Family History Mother Colorectal cancer Social History Preferred Language: Pashto Communication Ability: Effective Beliefs That Will Affect Care: None marital status: / Current Living Situation: Family current occupational status: retired Feels Safe at Home: Yes Smoking Status: Former smoker Hx Alcohol Use: Yes Alcohol type: beer Hx Substance Use: No Review of Systems See HPI for pertinent positives & negatives. and A total of 10 systems reviewed and were otherwise negative Physical Exam Vital Signs Vital Signs - 24 hr 09/25/18 13:16 09/25/18 13:41 09/25/18 14:13 Temperature 36.4 C L Temperature Source Oral Sepsis Recent Fever Within 48 Hours No Sepsis Action Taken by Nursing No Action Required Pulse Rate 96 H Pulse Rate [Apical] 123 H Pulse Rhythm [Apical] Regular Pulse Strength [Apical] Normal Respiratory Rate 18 24 Respiratory Depth Normal Blood Pressure 107/54 L Blood Pressure [Right Arm] 114/58 L Blood Pressure Mean 71 Blood Pressure Mean [Right Arm] 76 Blood Pressure Position Lying Blood Pressure Position [Right Arm] Lying Pulse Oximetry 98 98 98 Oxygen Delivery Method Nasal Cannula Nasal Cannula Nasal Cannula Oxygen Flow Rate 2 2 2 CONSTITUTIONAL/VITAL SIGNS: Reviewed / noted above. GENERAL: Non-toxic in appearance. Hiccups eery 5-10 seconds. INTEGUMENTARY: Warm, dry, and [place]. HEAD: Normocephalic. EYES: without scleral icterus or trauma. ENT/OROPHARYNX: clear with dry mucus membranes. LYMPHADENOPATHY/NECK: Is supple without lymphadenopathy or meningismus. RESPIRATORY: Lungs clear and equal. CARDIOVASCULAR: Regular rate and rhythm. GI/ABDOMEN: Soft and nontender. No organomegaly or pulsatile mass. No rebound or guarding. Normal bowel sounds. EXTREMITIES: Warm and well perfused. BACK: No CVA tenderness. NEUROLOGICAL: Intact without focal deficits. PSYCHIATRIC: normal affect. MUSCULOSKELETAL: Normally developed with good muscle tone. NEURO: Speech is weak and slightly slurred. Course 1350: The patient was evaluated in room C2B. A complete history and physical exam was performed. 1516: I discussed the patient's case with Dr. Tigre Coleman Oncologist. He states that he doesn't believe there is anything for him to address at this time and to continue with whatever the plans for treatment are here. 1524: I discussed the patient's test results and the treatment plan with him and his daughter. I discussed the consult with Dr. Hernandez. They verbally agree and understand. The patient was discharged home. 1614: I discussed the patient's case with Dr. Divya JOSHI Hospitalist. She will evaluate the patient for further management. Consultations Consultation #1: I discussed the patient's case with Dr. Tigre Coleman Oncologist. He states that he doesn't believe there is anything for him to address at this time and to continue with whatever the plans for treatment are here. Time: 15:16 Consultation #2: I discussed the patient's case with Dr. Divya JOSHI Hospitalist. She will evaluate the patient for further management. Time: 16:14 Administered Medications Discontinued Medications Sodium Chloride (Nss) 500 mls @ 999 mls/hr IV .Q31M SIRI Stop: 09/25/18 14:15 Last Infusion: 09/25/18 15:49 Dose: 0 mls/hr Documented by: [id number] Admin: 09/25/18 14:28 Dose: 999 mls/hr Documented by: [id number] Medical Decision Making Differential Diagnosis Differential includes acute coronary syndrome, myocardial infarction, CVA, TIA, anemia, infection, pneumonia, UTI, pyelonephritis, poor nutrition, dehydration, electrolyte disturbance,hypoglycemia. Medical Records Attestation: I reviewed the patient's medical records. Home Medications Current Medication List: was personally reviewed by me Laboratory Data Attestation: I reviewed the patient's lab results. Result diagrams: 09/25/18 13:44 09/25/18 13:44 Lab Results 09/25/18 09/25/18 09/25/18 Range/Units 13:44 13:44 13:44 WBC 13.78 H (4.8-10.8) K/uL RBC 3.89 L (4.7-6.1) M/uL Hgb 12.6 L (14.0-18.0) g/dL Hct 35.8 L (42-52) % MCV 92.0 (80-100) fL MCH 32.4 (25-34) pg MCHC 35.2 (32-36) g/dL RDW Std Deviation 49.3 H (36.4-46.3) fL RDW Coeff of Marck 14.8 H (11.5-14.5) % Plt Count 191 (130-400) K/uL MPV 10.4 (7.4-10.4) fL Immature Gran % (Auto) 5.2 % Neut % (Auto) 82.9 % Lymph % (Auto) 7.3 % [place] % (Auto) 3.6 % Eos % (Auto) 0.6 % Baso % (Auto) 0.4 % Immature Gran # (Auto) 0.71 H (0.00-0.02) K/uL Neut # (Auto) 11.45 H (1.4-6.5) K/uL Lymph # (Auto) 1.00 L (1.2-3.4) K/uL [place] # (Auto) 0.49 (0.11-0.59) K/uL Eos # (Auto) 0.08 (0-0.5) K/uL Baso # (Auto) 0.05 (0-0.2) K/uL Sodium 133 L (136-145) mmol/L Potassium 4.0 (3.5-5.1) mmol/L Chloride 98 (98-107) mmol/L Carbon Dioxide 29 (21-32) mmol/L Anion Gap 6.0 (3-11) BUN 19 H (7-18) mg/dl Creatinine 1.29 (0.6-1.4) mg/dl Est Cr Clr Drug Dosing 37.9 ml/min Est GFR ( Amer) 57.8 Est GFR (Non-Af Amer) 49.9 BUN/Creatinine Ratio 14.4 (10-20) Glucose 109 H (70-99) mg/dl Calcium 8.5 (8.5-10.1) mg/dl Total Bilirubin 0.4 (0.2-1) mg/dl AST 48 H (15-37) U/L ALT 66 (12-78) U/L Alkaline Phosphatase 81 (45-117) U/L Troponin I 0.089 H* (0-0.045) ng/ml Total Protein 5.6 L (6.4-8.2) gm/dl Albumin 1.8 L (3.4-5.0) gm/dl Globulin 3.8 (2.5-4.0) gm/dl Albumin/Globulin Ratio 0.5 L (0.9-2) TSH 0.199 L (0.300-4.500) uIu/ml Free T4 1.41 (0.8-1.6) ng/dl Imaging Data Radiologist's Impression: Radiology results as stated below per my review and the radiologist's interpretation: XR chest 1V portable HISTORY: 88 years-old Male weakness acute weakness COMPARISON: Chest radiograph 09/07/2018 and 09/05/2018, chest CT 09/06/2018 TECHNIQUE: Portable AP view of the chest FINDINGS: Cardiac lead is mildly enlarged. Pulmonary vascular congestion with mild i nterstitial coarsening. No pneumothorax, or large pleural effusion. Mild right hemidiaphragm elevation with mild subsegmental bibasilar opacities. Mild blunting of the costophrenic angles. Degenerative changes of the shoulders and spine. Calcification of the thoracic aortic arch. IMPRESSION: 1. Cardiomegaly with suggestion of mild pulmonary edema. 2. Minimal bibasilar opacities suggest atelectasis. The above report was generated using voice recognition software. It may contain grammatical, syntax or spelling errors. Electronically signed by: Antwan Becerril M.D. 09/25/2018 2:[address] head/brain wo con CLINICAL HISTORY: 88 years-old Male with ams. Acutely altered mental status TECHNIQUE: Multiple axial CT images of the head were obtained without contrast. A dose lowering technique was utilized adhering to the principles of ALARA. CT DOSE: 970.54 mGy.cm COMPARISON: Head CT 09/07/2018, brain MRI 08/03/2018. FINDINGS: Motion degraded exam. Right frontal ventriculostomy catheter appears to be in stable positioning, distal tip terminating adjacent to the septum pellucidum. No acute intracranial hemorrhage, midline shift, hydrocephalus, territorial ischemia or new abnormal extra-axial collection. Mild edema of the right pariet al and temporal lobes redemonstrated. The previously described mass centered about the atria right lateral ventricle is better seen on comparison MRI. The calvarium is intact. The paranasal sinuses, mastoid air cells, and middle ear cavities are clear. IMPRESSION: 1. Motion degraded exam without acute intracranial abnormality identified. 2. Stable positioning of the right frontal ventriculostomy catheter without hydrocephalus. 3. Mass centered about the atria right lateral ventricle is better seen on comparison brain MRI. Minimal vasogenic edema is again noted about the right parietal and temporal lobes. The above report was generated using voice recognition software. It may contain grammatical, syntax or spelling errors. Electronically signed by: Antwan Becerril M.D. 09/25/2018 2:47 PM ECG Data Attestation: I personally reviewed and interpreted this ECG as follows: Indication: weakness Rate (beats per minute): 95 Rhythm: sinus rhythm Findings: + PAC; no ST elevation Blood Pressure Blood Pressure Findings: Low blood pressure Blood Pressure Disposition: further management by hospitalist VIK Narrative This is a 88-year-old male who presents to the ED with a chief complaint of feeling weak, tired and lethargic and a lower blood pressure. The patient's symptoms started over the last day or 2, according to the qtqhsafe-hr-fee, who presents with him. She states that she took over his care this morning and noticed that he was more tired and lethargic than normal and brought him in for evaluation. She also reported a fever yesterday and this morning of 101.1. She states that he is on chemotherapy and that the fevers are not unusual. The patient also has a chronic hiccup that is been ongoing for weeks. His doctor started him on Thorazine 2 days ago. This did not seem to resolve them. The patient has history of a brain tumor. 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 The patient denies any specific complaints of pain or illness other than the weakness and tiredness. Vital signs here reveal a tachycardia with a heart rate of 123. His EKG showed a sinus rhythm with PACs at a rate of 95. White blood cell count was 13.7. Chest x-ray reveals some mild pulmonary edema. This is not clinically present. The chemistry panel was unremarkable. Troponin was elevated 0.089. CT scan of the brain reveals some mild vasogenic edema around the site of the tumor otherwise no acute abnormalities and no significant change from her previous imaging study. I spoke with Dr. Hernandez from [place] [facility]. Dr. Hernandez was happy to see the patient, however the patient's symptoms did not seem to be primarily nor a surgical or oncologic in nature. Certainly multifactorial causes could be related to the patient's lethargy and tiredness. He recently was placed on Thorazine. This could contribute. He was clinically dehydrated. His troponin is elevated. He has frequent hiccups that are not allowing him to sleep. Because of his elevated troponin, the patient will be seen by the hospitalist for further inpatient evaluation and care. I did try dose of Neurontin 300 mg p.o. 4 his hiccups to see if this would help. I did not think that Thorazine would be beneficial any longer and this was to be continued. He was hydrated with IV fluids during his stay. Impression & Plan Elevated troponin, Weakness Discharge Plan Visit Data Chief Complaint: Lethargic ED Provider: Gabino Leal Discharge Problem: Elevated troponin, Weakness Patient Disposition: Being Evaluated by Hospitalist Forms Stand Alone Forms: My [facility] Prescriptions Prescriptions: No Action pravastatin 10 mg tablet 10 mg PO HS RF: 0 cholecalciferol (vitamin D3) [Vitamin D3] 2,000 unit Capsule 2,000 unit PO DAILY RF: 0 omega 8-arn-pxm-fish oil [Fish Oil] 1,000 mg (120 mg-180 mg) Capsule 1 cap PO DAILY RF: 0 budesonide 32 mcg/actuation [place],Non-Aerosol 1 spray INTRANASAL DAILY RF: 0 acetaminophen 650 mg Tablet Extended Release 650 mg PO Q6H PRN (Reason: Pain) RF: 0 famotidine 20 mg tablet 20 mg PO DAILY RF: 0 tamsulosin 0.4 mg capsule 0.4 mg PO DAILY RF: 0 Referrals Referrals: Chaparro Corona MD [Primary Care Provider] - The scribe's documentation has been prepared under my direction and personally reviewed by me in its entirety. I confirm that the note above accurately reflec ts all work, treatment, procedures, and medical decision making performed by me.
--- NOTE | 2018-09-25 14:49 | CT Scan Report ---
CT head/brain wo con CLINICAL HISTORY: 88 years-old Male with ams. Acutely altered mental status TECHNIQUE: Multiple axial CT images of the head were obtained without contrast. A dose lowering tech nique was utilized adhering to the principles of ALARA. CT DOSE: 970.54 mGy.cm COMPARISON: Head CT 09/07/2018, brain MRI 08/03/2018. FINDINGS: Motion degraded exam. Right frontal ventriculostomy catheter appears to be in stable positioning, dis nolan tip terminating adjacent to the septum pellucidum. No acute intracranial hemorrhage, midline shif t, hydrocephalus, territorial ischemia or new abnormal extra-axial collection. Mild edema of the righ t parietal and temporal lobes redemonstrated. The previously described mass centered about the atria right lateral ventricle is better seen on comparison MRI. The calvarium is intact. The paranasal sinuses, mastoid air cells, and middle ear cavities are clear . IMPRESSION: 1. Motion degraded exam without acute intracranial abnormality identified. 2. Stable positioning of the right frontal ventriculostomy catheter without hydrocephalus. 3. Mass centered about the atria right lateral ventricle is better seen on comparison brain MRI. Mini mal vasogenic edema is again noted about the right parietal and temporal lobes. The above report was generated using voice recognition software. It may contain grammatical, syntax o r spelling errors. Electronically signed by: Antwan Beecrril M.D. 09/25/2018 2:47 PM
[2018-09-25 14:56] LABS: Albumin Level 1.8 gm/dl (3.4-5.0); BUN Creatinine Ratio 14.4 (10-20); Calcium 8.5 mg/dl (8.5-10.1); Creatinine Clr Calc Pharmacy 37.9 ml/min; Est GFR (African American) 57.8; Est GFR (Non-African American) 49.9
[2018-09-25 15:05] LABS: Basophils # (auto) 0.05 K/uL (0-0.2); Basophils % (auto) 0.4 %; Eosinophils # (auto) 0.08 K/uL (0-0.5); Eosinophils % (auto) 0.6 %; Immature Granulocytes # (auto) 0.71 K/uL (0.00-0.02); Immature Granulocytes % (auto) 5.2 %; Lymphocytes % (auto) 7.3 %; Monocytes # (auto) 0.49 K/uL (0.11-0.59); Monocytes % (auto) 3.6 %; Neutrophils # (auto) 11.45 K/uL (1.4-6.5); Neutrophils % (auto) 82.9 %
[2018-09-25 15:06] LABS: Albumin Globulin Ratio 0.5 (0.9-2); Bilirubin,Total 0.4 mg/dl (0.2-1); Globulin 3.8 gm/dl (2.5-4.0); Total Protein 5.6 gm/dl (6.4-8.2)
[2018-09-25 15:19] LABS: T4 Free Thyroxine 1.41 ng/dl (0.8-1.6)
[2018-09-25] MEDS ORDERED: GABAPENTIN 600 MG TAB PO STA (16:09)
[2018-09-25] MEDS ORDERED: SODIUM CHLORIDE 0.9% 1000ML 1,000 ML IV SCH (17:00)
[2018-09-25] MEDS ORDERED: ONDANSETRON 8 MG TABLET PO PRN (18:49)
[2018-09-25] MEDS: SODIUM CHLORIDE 0.9% 1000ML 1,000 ML IV SCH (19:17)
[2018-09-25 20:17] LABS: INR 1.1 (0.9-1.1); Partial Thromboplastin Time 27.6 Seconds (21.0-31.0); Prothrombin Time 11.3 Seconds (9.0-12.0)
[2018-09-25 20:21] LABS: Magnesium 2.3 mg/dl (1.8-2.4); Phosphorus 3.6 mg/dl (2.5-4.9)
--- NOTE | 2018-09-25 20:38 | CT Scan Report ---
CT SCAN OF THE ABDOMEN AND PELVIS WITHOUT CONTRAST CLINICAL HISTORY: intractable hiccups COMPARISON STUDY: 08/05/2018 TECHNIQUE: CT scan of the abdomen and pelvis was performed from the lung bases to the proximal femurs . Images are reviewed in the axial, sagittal, and coronal planes. IV contrast was not administered fo r this examination. A dose lowering technique was utilized adhering to the principles of ALARA. CT DOSE: 351.11 mGy.cm FINDINGS: Lower chest: There are dependent bilateral airspace opacities, likely atelectatic although an infecti ous/inflammatory process could appear similar Liver: There are stable left lobe hepatic hypodensities, likely representing cysts. Gallbladder: Unremarkable. Spleen: Normal in size and attenuation. Pancreas: Unremarkable. Adrenal glands: Unremarkable. Kidneys: No renal, ureteral, or bladder calculi are visualized. Bowel: There are no transition zones to indicate bowel obstruction. There is mild infiltration of the perisigmoid fat possibly secondary to minimal diverticulitis. There is mild rectal wall thickening. There is presacral edema. There is a moderate amount of right colonic stool. There are no findings to indicate acute appendicitis. Peritoneum: There is no intraperitoneal free air or abdominal ascites. Vasculature: Atheromatous changes are present within the abdominal aorta. There is a 31 mm infrarenal abdominal aortic aneurysm.: Adenopathy: None Pelvic viscera: Prostatic calcifications are evident. There is presacral edema. Skeletal structures: No destructive osseous lesions are seen. There are moderate multilevel degenerat hung changes with spine IMPRESSION: 1. No evidence of bowel obstruction. No evidence of free air 2. Mild sigmoid diverticulitis. No evidence of abscess 3. Borderline rectal wall thickening and presacral edema 4. No renal, ureteral, or bladder calculi identified. Electronically signed by: Edmar King M.D. 09/25/2018 8:36 PM
[2018-09-25] MEDS: ASPIRIN 81 MG ECTAB PO SCH (21:34)
[2018-09-25] MEDS: GABAPENTIN 100 MG CAP PO SCH (21:34)
--- NOTE | 2018-09-25 22:05 | History & Physical Report ---
Date of Service September 25, 2018 Assessment & Plan (1) Elevated troponin: No CP -Check 2 D echo -Trend troponin -Consider Cardiology consult pending above results Present on Admission?: Yes (2) Intractable hiccups: Thorazine started outpatient with increased fatigue. May be secondary to medication side effects, Dexamethasone -Neurontin 100mg po TID, may increase dose as tolerated -Consider CT chest for further workup (3) Weakness: Diffuse, progressive. Etiology unclear. -Optimize electrolytes -PT/OT assessment -Ambulation as tolerated (4) Primary HORSESHOER lymphoma: Stable -Continue Revlimid -To receive chemo on Sunday at [facility] Present on Admission?: Yes (5) Fever: Source uncelar. ?Diverticulitis noted on CT. Patient with no symmptoms, abdomen benign -Follow cultures -Start Augmentin 500mg po BID Present on Admission?: Yes (6) Hyperlipidemia LDL goal <70: Chronic. -Continue PRavastatin, Fish oil F/E/N - NSS 75mL/hr, monitor electrolyes, Heart healthy diet as tolerated Ppx - Pepcid, Lovenox Code - DNR Dispo - Admit to med/surge History of Present Illness Chief Complaint: Fever Primary Care Provider: Nomi Corona MD 88yo C male with history of HORSESHOER lymphoma s/p ventriculostomy and Omaya port in place. Patient follows at [facility] for intrathecal chemotherapy, next appointment is Sunday. Patient had fever this AM to 101.2. He was given Tylenol which improved fever. Also with progressive weakness and decreased oral intake. Family comments on overall decline in quality of life. Patient with no specific complaints, denies CHAUDHARY, visual changes, ear pain, facial/dental pain, pain with swallowing, CP/SOB/abdominal pain, n/v/d/ or c. No wounds/rashes or arthritis/arthralgias. Patient has had extensive workup for FUO which has been unrevealing. Additionally patient with 3-4 days of persistent hiccups. He was seen outpatient two days ago and prescribed Thorazine. Since taking that medication he has become quite somnolent. He has been unable to sleep secondary to hiccups. Additionally patient found to have elevated troponin. Denies CP/palpitations/SOB ER Course: NSS x 1 liter, Gabapentin Allergies Allergy/AdvReac Type Severity Reaction Status Date / Time Lovehxe-Zqa-Myf Reductase Allergy Unknown CRESTOR,LIPITOR,ZOCOR-MUSCLE Verified 09/25/18 16:40 Inhibitor ACHES Home Medications Home Medications Medication Instructions Recorded Confirmed Type aspirin 81 mg PO BID 09/25/18 09/25/18 History famotidine 20 mg PO DAILY 09/25/18 09/25/18 History lenalidomide [Revlimid] 25 mg PO DAILY 09/25/18 09/25/18 History omega 3-hcy-ctl-fish oil [Fish Oil] 1 cap PO DAILY 09/25/18 09/25/18 History omeprazole 20 mg PO DAILY 09/25/18 09/25/18 History ondansetron HCl [Zofran] 8 mg PO QAM 09/25/18 09/25/18 History ondansetron HCl [Zofran] 8 mg PO UD PRN 09/25/18 09/25/18 History Past Med/Surg History Medical History Mucositis (Acute) Acute kidney injury (Acute) Primary HORSESHOER lymphoma (Chronic) Hyperlipidemia LDL goal <70 (Chronic) UTI (urinary tract infection) (Acute) Pneumonia (Acute) Anemia (Acute) Immunocompromised (Acute) Thrombocytopenia (Chronic) Vasogenic edema (Acute) Brain tumor (Chronic) Altered mental status (Acute) Heart disease (Chronic) CAD (coronary artery disease) Hyperlipemia Hypertension Surgical History Stented coronary artery (Chronic) H/O angioplasty (Resolved) Family History Mother Colorectal cancer Social History Preferred Language: Italian Communication Ability: Effective 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 Beliefs That Will Affect Care: None marital status: / Current Living Situation: Family current occupational status: retired Other Information That Helps Us Care for You: No Feels Safe at Home: Yes Safety Concerns: Feels Safe At This Time Smoking Status: Former smoker Do You Dip or Chew Tobacco: No Hx Alcohol Use: Yes Alcohol type: beer Hx Substance Use: No Review of Systems Review of Systems: All systems reviewed & are unremarkable except as noted in HPI & below Physical Exam Physical Exam: General: patient resting comfortably, NAD, non-toxic in appearance, AA&O x 4 Skin: warm, dry, intact, no rashes or lesions HEENT: NC/AT, PERRL, EOMI, anicteric sclera, conjunctiva without injection, external ear normal to inspection and nontender, nares patent, moist mucus membranes, dentition intact, no oropharyngeal lesions, neck supple, trachea midline, no LAD, no thyromegaly, no JVD, port in place, nontender Heart: +S1/S2, regular, no m/r/g Lungs: equal air entry bilaterally, no rales/rhonchi/wheezes Abd: +BS, soft, NT/ND, no masses/organomegaly/ascites Ext: warm, 2+ pulses in UE/LE bilaterally, no clubbing/cyanosis or edema Neuro: nonfocal, patient AA&O x 4, speech intact, no facial droop, moving all extremities on command with equal strength 5/5 Results & Data Vital Signs (Past 12 Hours) Vital Signs Temp Pulse Pulse Resp BP BP Pulse Ox 09/25/18 19:34 36.9 C 120 H 22 100/68 93 09/25/18 17:50 128 H 21 09/25/18 17:40 127 H 22 09/25/18 17:31 135 H 18 137/70 09/25/18 17:30 131 H 17 09/25/18 17:20 129 H 17 09/25/18 17:10 120 H 16 09/25/18 17:01 128 H 19 139/76 09/25/18 17:00 145 H 23 09/25/18 16:50 135 H 23 09/25/18 16:40 128 H 29 H 09/25/18 16:31 130 H 21 145/73 H 09/25/18 16:30 134 H 18 09/25/18 16:20 133 H 24 09/25/18 16:10 126 H 26 H 09/25/18 16:01 123 H 22 163/92 H 09/25/18 16:00 123 H 19 09/25/18 15:50 119 H 28 H 09/25/18 15:40 120 H 19 09/25/18 15:30 110 H 19 161/62 H 09/25/18 15:20 118 H 21 09/25/18 15:10 118 H 20 09/25/18 15:01 122 H 25 H 98 09/25/18 15:00 97 H 18 137/86 97 09/25/18 14:50 97 H 26 H 98 09/25/18 14:46 105 H 18 121/58 L 97 09/25/18 14:44 103 H 31 H 09/25/18 14:30 104 H 20 98 09/25/18 14:20 116 H 17 99 09/25/18 14:13 123 H 24 114/58 L 98 09/25/18 14:12 121 H 23 114/58 L 98 09/25/18 14:10 121 H 17 97 09/25/18 14:00 118 H 18 96 09/25/18 13:50 120 H 21 09/25/18 13:41 98 09/25/18 13:40 97 H 17 91 09/25/18 13:37 117 H 20 107/54 L 92 09/25/18 13:16 36.4 C L 96 H 18 107/54 L 98 Laboratory Results Lab Results 09/25/18 09/25/18 09/25/18 Range/Units 13:44 13:44 13:44 WBC 13.78 H (4.8-10.8) K/uL RBC 3.89 L (4.7-6.1) M/uL Hgb 12.6 L (14.0-18.0) g/dL Hct 35.8 L (42-52) % MCV 92.0 (80-100) fL MCH 32.4 (25-34) pg MCHC 35.2 (32-36) g/dL RDW Std Deviation 49.3 H (36.4-46.3) fL RDW Coeff of Marck 14.8 H (11.5-14.5) % Plt Count 191 (130-400) K/uL MPV 10.4 (7.4-10.4) fL Immature Gran % (Auto) 5.2 % Neut % (Auto) 82.9 % Lymph % (Auto) 7.3 % [place] % (Auto) 3.6 % Eos % (Auto) 0.6 % Baso % (Auto) 0.4 % Immature Gran # (Auto) 0.71 H (0.00-0.02) K/uL Neut # (Auto) 11.45 H (1.4-6.5) K/uL Lymph # (Auto) 1.00 L (1.2-3.4) K/uL [place] # (Auto) 0.49 (0.11-0.59) K/uL Eos # (Auto) 0.08 (0-0.5) K/uL Baso # (Auto) 0.05 (0-0.2) K/uL PT (9.0-12.0) Seconds INR (0.9-1.1) APTT (21.0-31.0) Seconds PTT Ratio Sodium 133 L (136-145) mmol/L Potassium 4.0 (3.5-5.1) mmol/L Chloride 98 (98-107) mmol/L Carbon Dioxide 29 (21-32) mmol/L Anion Gap 6.0 (3-11) BUN 19 H (7-18) mg/dl Creatinine 1.29 (0.6-1.4) mg/dl Est Cr Clr Drug Dosing 37.9 ml/min Est GFR ( Amer) 57.8 Est GFR (Non-Af Amer) 49.9 BUN/Creatinine Ratio 14.4 (10-20) Glucose 109 H (70-99) mg/dl Calcium 8.5 (8.5-10.1) mg/dl Phosphorus (2.5-4.9) mg/dl Magnesium (1.8-2.4) mg/dl Total Bilirubin 0.4 (0.2-1) mg/dl AST 48 H (15-37) U/L ALT 66 (12-78) U/L Alkaline Phosphatase 81 (45-117) U/L Troponin I 0.089 H* (0-0.045) ng/ml Total Protein 5.6 L (6.4-8.2) gm/dl Albumin 1.8 L (3.4-5.0) gm/dl Globulin 3.8 (2.5-4.0) gm/dl Albumin/Globulin Ratio 0.5 L (0.9-2) TSH 0.199 L (0.300-4.500) uIu/ml Free T4 1.41 (0.8-1.6) ng/dl 09/25/18 09/25/18 09/25/18 Range/Units 19:25 19:25 19:25 WBC (4.8-10.8) K/uL RBC (4.7-6.1) M/uL Hgb (14.0-18.0) g/dL Hct (42-52) % MCV (80-100) fL MCH (25-34) pg MCHC (32-36) g/dL RDW Std Deviation (36.4-46.3) fL RDW Coeff of Marck (11.5-14.5) % Plt Count (130-400) K/uL MPV (7.4-10.4) fL Immature Gran % (Auto) % Neut % (Auto) % Lymph % (Auto) % [place] % (Auto) % Eos % (Auto) % Baso % (Auto) % Immature Gran # (Auto) (0.00-0.02) K/uL Neut # (Auto) (1.4-6.5) K/uL Lymph # (Auto) (1.2-3.4) K/uL [place] # (Auto) (0.11-0.59) K/uL Eos # (Auto) (0-0.5) K/uL Baso # (Auto) (0-0.2) K/uL PT 11.3 (9.0-12.0) Seconds INR 1.1 (0.9-1.1) APTT 27.6 (21.0-31.0) Seconds PTT Ratio 1.0 Sodium (136-145) mmol/L Potassium (3.5-5.1) mmol/L Chloride (98-107) mmol/L Carbon Dioxide (21-32) mmol/L Anion Gap (3-11) BUN (7-18) mg/dl Creatinine (0.6-1.4) mg/dl Est Cr Clr Drug Dosing ml/min Est GFR ( Amer) Est GFR (Non-Af Amer) BUN/Creatinine Ratio (10-20) Glucose (70-99) mg/dl Calcium (8.5-10.1) mg/dl Phosphorus 3.6 (2.5-4.9) mg/dl Magnesium 2.3 (1.8-2.4) mg/dl Total Bilirubin (0.2-1) mg/dl AST (15-37) U/L ALT (12-78) U/L Alkaline Phosphatase (45-117) U/L Troponin I 0.089 H* (0-0.045) ng/ml Total Protein (6.4-8.2) gm/dl Albumin (3.4-5.0) gm/dl Globulin (2.5-4.0) gm/dl Albumin/Globulin Ratio (0.9-2) TSH (0.300-4.500) uIu/ml Free T4 (0.8-1.6) ng/dl Diagnostic Findings XR chest 1V portable HISTORY: 88 years-old Male weakness acute weakness COMPARISON: Chest radiograph 09/07/2018 and 09/05/2018, chest CT 09/06/2018 TECHNIQUE: Portable AP view of the chest FINDINGS: Cardiac lead is mildly enlarged. Pulmonary vascular congestion with mild interstitial coarsening. No pneumothorax, or large pleural effusion. Mild right hemidiaphragm elevation with mild subsegmental bibasilar opacities. Mild blunting of the costophrenic angles. Degenerative changes of the shoulders and spine. Calcification of the thoracic aortic arch. IMPRESSION: 1. Cardiomegaly with suggestion of mild pulmonary edema. 2. Minimal bibasilar opacities suggest atelectasis. The above report was generated using voice recognition software. It may contain grammatical, syntax or spelling errors. Electronically signed by: Antwan Becerril M.D. 09/25/2018 2:17 PM Dictated: 09/25/18 1415 Transcribed: 09/25/[address] head/brain wo con CLINICAL HISTORY: 88 years-old Male with ams. Acutely altered mental status TECHNIQUE: Multiple axial CT images of the head were obtained without contrast. A dose lowering technique was utilized adhering to the principles of ALARA. CT DOSE: 970.54 mGy.cm COMPARISON: Head CT 09/07/2018, brain MRI 08/03/2018. FINDINGS: Motion degraded exam. Right frontal ventriculostomy catheter appears to be in stable positioning, distal tip terminating adjacent to the septum pellucidum. No acute intracranial hemorrhage, midline shift, hydrocephalus, territorial ischemia or new abnormal extra-axial collection. Mild edema of the right parietal and temporal lobes redemonstrated. The previously described mass centered about the atria right lateral ventricle is better seen on comparison MRI. The calvarium is intact. The paranasal sinuses, mastoid air cells, and middle ear cavities are clear. IMPRESSION: 1. Motion degraded exam without acute intracranial abnormality identified. 2. Stable positioning of the right frontal ventriculostomy catheter without h ydrocephalus. 3. Mass centered about the atria right lateral ventricle is better seen on comparison brain MRI. Minimal vasogenic edema is again noted about the right parietal and temporal lobes. The above report was generated using voice recognition software. It may contain grammatical, syntax or spelling errors. Electronically signed by: Antwan Becerril M.D. 09/25/2018 2:47 PM Dictated: 09/25/18 1442 Transcribed: 09/25/[address] SCAN OF THE ABDOMEN AND PELVIS WITHOUT CONTRAST CLINICAL HISTORY: intractable hiccups COMPARISON STUDY: 08/05/2018 TECHNIQUE: CT scan of the abdomen and pelvis was performed from the lung bases to the proximal femurs. Images are reviewed in the axial, sagittal, and coronal planes. IV contrast was not administered for this examination. A dose lowering technique was utilized adhering to the principles of ALARA. CT DOSE: 351.11 mGy.cm FINDINGS: Lower chest: There are dependent bilateral airspace opacities, likely atelectatic although an infectious/inflammatory process could appear similar Liver: There are stable left lobe hepatic hypodensities, likely representing cysts. Gallbladder: Unremarkable. Spleen: Normal in size and attenuation. Pancreas: Unremarkable. Adrenal glands: Unremarkable. Kidneys: No renal, ureteral, or bladder calculi are visualized. Bowel: There are no transition zones to indicate bowel obstruction. There is mi ld infiltration of the perisigmoid fat possibly secondary to minimal diverticulitis. There is mild rectal wall thickening. There is presacral edema. There is a moderate amount of right colonic stool. There are no findings to indicate acute appendicitis. Peritoneum: There is no intraperitoneal free air or abdominal ascites. Vasculature: Atheromatous changes are present within the abdominal aorta. There is a 31 mm infrarenal abdominal aortic aneurysm.: Adenopathy: None Pelvic viscera: Prostatic calcifications are evident. There is presacral edema. Skeletal structures: No destructive osseous lesions are seen. There are moderate multilevel degenerative changes with spine IMPRESSION: 1. No evidence of bowel obstruction. No evidence of free air 2. Mild sigmoid diverticulitis. No evidence of abscess 3. Borderline rectal wall thickening and presacral edema 4. No renal, ureteral, or bladder calculi identified. Electronically signed by: Edmar King M.D. 09/25/2018 8:36 PM Dictated: 09/25/182025 Transcribed: 09/25/182033_ ECG Additional Comments: SR at 95 with PACs, Nonspecific ST abnormality Code Status & VTE Plan Code Status DNR VTE Prophylaxis Plan VTE Prophylaxis will be ordered: Yes (1) Fever Fever type: unspecified Qualified Code(s): R50.9 - Fever, unspecified
[2018-09-25] MEDS: ENOXAPARIN INJ 40 MG/0.4 ML SYR SQ SCH (22:21)
[2018-09-26 06:37] LABS: Basophils # (auto) 0.04 K/uL (0-0.2); Basophils % (auto) 0.3 %; Eosinophils # (auto) 0.06 K/uL (0-0.5); Eosinophils % (auto) 0.5 %; Hematocrit (blood only) 35.5 % (42-52); Hemoglobin 12.2 g/dL (14.0-18.0); Immature Granulocytes # (auto) 0.51 K/uL (0.00-0.02); Immature Granulocytes % (auto) 3.9 %; Lymphocytes # (auto) 1.27 K/uL (1.2-3.4); Lymphocytes % (auto) 9.8 %; Mean Corpuscular Hgb Conc 34.4 g/dL (32-36); Mean Corpuscular Volume 94.2 fL (80-100); Mean Platelet Volume 10.7 fL (7.4-10.4); Monocytes # (auto) 0.51 K/uL (0.11-0.59); Monocytes % (auto) 3.9 %; Neutrophils # (auto) 10.54 K/uL (1.4-6.5); Neutrophils % (auto) 81.6 %; Platelet Count 161 K/uL (130-400); RDW Coefficient of Variation 15.1 % (11.5-14.5); RDW Standard Deviation 50.8 fL (36.4-46.3); Red Blood Count 3.77 M/uL (4.7-6.1); White Blood Count 12.93 K/uL (4.8-10.8)
[2018-09-26 07:17] LABS: Creatinine Clr Calc Pharmacy 40.6 ml/min; Est GFR (African American) 61.8; Est GFR (Non-African American) 53.4; Potassium 4.1 mmol/L (3.5-5.1)
[2018-09-26] MEDS: LENALIDOMIDE PO SCH (08:10)
[2018-09-26] MEDS: ASPIRIN 81 MG ECTAB PO SCH ×2 (08:11→21:38)
[2018-09-26] MEDS: ONDANSETRON 8 MG TABLET PO SCH (08:11)
[2018-09-26] MEDS: PANTOprazole 40 MG TAB PO SCH (08:11)
[2018-09-26] MEDS: GABAPENTIN 100 MG CAP PO SCH ×3 (08:11→21:38)
[2018-09-26] MEDS: OMEGA-3 (PURIFIED FISH OIL) 1 GM CAP PO SCH (08:11)
[2018-09-26] MEDS: AMOXICILLIN/CLAVULANATE 500 MG TAB PO SCH ×2 (08:12→17:52)
[2018-09-26] MEDS: SODIUM CHLORIDE 0.9% 1000ML 1,000 ML IV SCH ×2 (08:17→20:31)
[2018-09-26] MEDS: FAMOTIDINE 20 MG TAB PO SCH (08:18)
[2018-09-26] MEDS ORDERED: ACETAMINOPHEN 325 MG TAB PO PRN (12:06)
[2018-09-26] MEDS ORDERED: ACETAMINOPHEN 325 MG TAB PO ONE (12:15)
[2018-09-26] MEDS: METOPROLOL TARTRATE 25 MG TAB PO SCH ×2 (13:07→21:38)
[2018-09-26] MEDS ORDERED: TAMSULOSIN HCL 0.4 MG CAP PO ONE (15:26)
[2018-09-26 15:51] LABS: Appearance Urine Clear (Clear); Bacteria Urine Automated Negative (Negative); Bilirubin Urine Negative (Negative); Blood Urine Negative (Negative); Color Urine Dark Yellow; Epithelial Cell Urine Auto >30 /lpf (0-5); Glucose Urine UA Negative (Negative); Ketones Urine Negative (Negative); Leukocyte Esterase Urine Negative (Negative); Nitrite Urine Negative (Negative); Protein Urine Trace (Negative); Specific Gravity Urine 1.022 (1.000-1.030); Urobilinogen Urine Negative (Negative)
[2018-09-26 16:01] LABS: Mucus Urine Present (None Prsent)
--- NOTE | 2018-09-26 16:16 | Cardiology Consultation ---
Date of Consultation September 26, 2018 Assessment & Plan (1) Elevated troponin: Echocardiographic and EKG findings do not suggest an acute myocardial ischemia though demand ischemia not completely excluded given elevated heart rate Patient the past of been on Toprol Will resume beta-lavon cautiously with metoprolol tartrate 12.5 mg 3 times daily (2) Intractable hiccups: Wide differential for patient's events. Myocardial ischemia and atypical inciting cause of hiccups though does not appear to be case. Increased intracranial pressure a concern Should discuss chemotherapeutic agent as well with his prescribing physician given multiple potential side effects (3) Stented coronary artery: History stable angina pectoris since procedure 2007 History of Present Illness Reason for Consultation: Elevated troponin Requesting Physician: Dr. Vail Attending Physician: Hilaria Vail, DO History of Present Illness Patient is an 88-year-old male with past history is notable for prior coronary disease with remote myocardial infarction, inferior wall per report with subsequent right coronary artery stenting in 2007. His past cardiac history is notable for preserved LV systolic function, statin intolerance. Chronic stable angina pectoris. Recent history obtained from discussion with patient's son and chart. Currently undergoing therapy for an intracranial with Revlimib Presents now with intractable hiccups Troponin minimally elevated on presentation Patient tachycardic with underlying sinus mechanism He notes marked fatigue in association with symptoms generalized nausea notes no specific worsening of headache notes no chest pain or discomfort notes no worsening shortness of breath. Denies orthopnea or worsening peripheral edema. Appetite only fair no vomiting no melena hematochezia Allergies Allergy/AdvReac Type Severity Reaction Status Date / Time Pnkfxch-Eyv-Aed Reductase Allergy Unknown CRESTOR,LIPITOR,ZOCOR-MUSCLE Verified 09/25/18 16:40 Inhibitor ACHES Home Medications Home Medications Medication Instructions Recorded Confirmed Type aspirin 81 mg PO BID 09/25/18 09/25/18 History famotidine 20 mg PO DAILY 09/25/18 09/25/18 History lenalidomide [Revlimid] 25 mg PO DAILY 09/25/18 09/25/18 History omega 7-bsj-svh-fish oil [Fish Oil] 1 cap PO DAILY 09/25/18 09/25/18 History omeprazole 20 mg PO DAILY 09/25/18 09/25/18 History ondansetron HCl [Zofran] 8 mg PO QAM 05/22/19 05/22/19 History ondansetron HCl [Zofran] 8 mg PO UD PRN 09/25/18 09/25/18 History Patient History Medical History Mucositis (Acute) Acute kidney injury (Acute) 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) Hyperlipidemia LDL goal <70 (Chronic) UTI (urinary tract infection) (Acute) Pneumonia (Acute) Anemia (Acute) Immunocompromised (Acute) Thrombocytopenia (Chronic) Vasogenic edema (Acute) Brain tumor (Chronic) Altered mental status (Acute) Heart disease (Chronic) CAD (coronary artery disease) Hyperlipemia Hypertension Surgical History Stented coronary artery (Chronic) H/O angioplasty (Resolved) Family History Mother Colorectal cancer Social History Preferred Language: Pry[place]in[place] Communication Ability: Effective 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 Beliefs That Will Affect Care: None marital status: / Current Living Situation: Family current occupational status: retired Other Information That Helps Us Care for You: No Feels Safe at Home: Yes Safety Concerns: Feels Safe At This Time Smoking Status: Former smoker Do You Dip or Chew Tobacco: No Hx Alcohol Use: Yes Alcohol type: beer Hx Substance Use: No Review of Systems Review of Systems: As per HPI Physical Exam Constitutional: + ill appearing Uncomfortable with frequent hiccups ENMT: external ear and nose normal, oropharynx normal Neck: trachea midline, no thyromegaly Respiratory: normal respiratory effort, lungs clear to auscultation Cardiovascular: Rate/Rhythm: regular rate and + tachycardic Heart Sounds: normal S1 and normal S2 Vessels: no JVD Extremities: no edema (Trace) Results & Data Vital Signs (Past 12 Hours) Vital Signs Temp Pulse Pulse Resp BP Pulse Ox 09/26/18 13:04 36.8 C 71 116/69 09/26/18 11:53 37.5 C 109 H 18 133/72 91 09/26/18 07:43 36.5 C 65 18 117/68 91 09/26/18 07:34 130 H Laboratory Results Laboratory Results - last 24 hr 09/25/18 09/25/18 09/25/18 19:25 19:25 19:25 WBC RBC Hgb Hct MCV MCH MCHC RDW Std Deviation RDW Coeff of Marck Plt Count MPV Immature Gran % (Auto) Neut % (Auto) Lymph % (Auto) [facility] % (Auto) Eos % (Auto) Baso % (Auto) Immature Gran # (Auto) Neut # (Auto) Lymph # (Auto) [facility] # (Auto) Eos # (Auto) Baso # (Auto) PT 11.3 INR 1.1 APTT 27.6 PTT Ratio 1.0 Sodium Potassium Chloride Carbon Dioxide Anion Gap BUN Creatinine Est Cr Clr Drug Dosing Est GFR ( Amer) Est GFR (Non-Af Amer) BUN/Creatinine Ratio Glucose Calcium Phosphorus 3.6 Magnesium 2.3 Troponin I 0.089 H* Urine Color Urine Appearance Urine pH Ur Specific Moran Urine Protein Urine Glucose (UA) Urine Ketones Urine Blood Urine Nitrite Urine Bilirubin Urine Urobilinogen Ur Leukocyte Esterase Urine WBC (Auto) Urine RBC (Auto) U Hyaline Cast (Auto) U Epithel Cells (Auto) Urine Bacteria (Auto) Urine Mucus 09/26/18 09/26/18 09/26/18 06:13 06:13 15:34 WBC 12.93 H RBC 3.77 L Hgb 12.2 L Hct 35.5 L MCV 94.2 MCH 32.4 MCHC 34.4 RDW Std Deviation 50.8 H RDW Coeff of Marck 15.1 H Plt Count 161 MPV 10.7 H Immature Gran % (Auto) 3.9 Neut % (Auto) 81.6 Lymph % (Auto) 9.8 [facility] % (Auto) 3.9 Eos % (Auto) 0.5 Baso % (Auto) 0.3 Immature Gran # (Auto) 0.51 H Neut # (Auto) 10.54 H Lymph # (Auto) 1.27 [facility] # (Auto) 0.51 Eos # (Auto) 0.06 Baso # (Auto) 0.04 PT INR APTT PTT Ratio Sodium 133 L Potassium 4.1 Chloride 99 Carbon Dioxide 27 Anion Gap 7.0 BUN 20 H Creatinine 1.22 Est Cr Clr Drug Dosing 40.6 Est GFR ( Amer) 61.8 Est GFR (Non-Af Amer) 53.4 BUN/Creatinine Ratio 16.0 Glucose 86 Calcium 8.0 L Phosphorus Magnesium Troponin I Urine Color Dark Yellow Urine Appearance Clear Urine pH 6.0 Ur Specific Moran 1.022 Urine Protein Trace H Urine Glucose (UA) Negative Urine Ketones Negative Urine Blood Negative Urine Nitrite Negative Urine Bilirubin Negative Urine Urobilinogen Negative Ur Leukocyte Esterase Negative Urine WBC (Auto) 5-10 H Urine RBC (Auto) 5-10 H U Hyaline Cast (Auto) 1-5 U Epithel Cells (Auto) >30 H Urine Bacteria (Auto) Negative Urine Mucus Present A Diagnostic Findings EKG sinus tachycardia with nonspecific ST segment changes rate 116 bpm Echocardiogram moderate left pretty with normal left systolic function there is indirect evidence of mild elevation pulmonary pressures
[2018-09-26] MEDS ORDERED: GADOBUTROL 65ML VIAL IV PRN (19:46)
--- NOTE | 2018-09-26 20:21 | Magnetic Resonance Report ---
MR brain wo/w con CLINICAL HISTORY: lymphoma COMPARISON STUDY: 08/03/2018. CT 09/07/2018 TECHNIQUE: Utilizing a 1.5 Odilia magnet and dedicated coil, multiplanar, multiecho imaging of the br ain was performed pre and postcontrast administration. IV administration of 5 mL of Gadavist contras t was uneventful. FINDINGS: Improved exam compared to the prior study. The extensive vasogenic edema has considerably i mproved. Configuration of the right lateral ventricle is also improved with a decrease in the tena sive affects described previously. There is been placement of a ventriculostomy catheter in good position. The enhancing components of the lesion appears similar with no major or interval change. Current study shows no significant midline shift. The degree of postcontrast enhancement is similar. Findings of generalized cerebellar as well as cerebral atrophy are unchanged. Ventricular system is i mproved in appearance with no current evidence for hydrocephalus. IMPRESSION: 1. Improved exam with the amount of vasogenic edema considerably diminished. 2. Ventricular system is now normal in terms of dimension with no evidence for midline shift. 3. The enhancing components previously described are unchanged 4. No evidence for new or interval component of enhancement. 5. Interval placement of a right frontal ventriculostomy catheter in good position. The above report was generated using voice recognition software. It may contain grammatical, syntax or spelling errors. Electronically signed by: Joseph Dover M.D. 09/26/2018 8:18 PM
[2018-09-26] MEDS: ENOXAPARIN INJ 40 MG/0.4 ML SYR SQ SCH (21:40)
--- NOTE | 2018-09-26 22:12 | Hospitalist Progress Note ---
Date of Service September 26, 2018 Assessment & Plan (1) Elevated troponin: No CP -Check 2 D echo -Trend troponin -Consulted cardio: apprecate input Echocardiographic and EKG findings do not suggest an acute myocardial ischemia though demand ischemia not completely excluded given elevated heart rate Patient the past of been on Toprol Will resume beta-lavon cautiously with metoprolol tartrate 12.5 mg 3 times daily (2) Intractable hiccups: Thorazine started outpatient with increased fatigue. May be secondary to medication side effects, Dexamethasone -Neurontin 100mg po TID, may increase dose as tolerated -Consider CT chest for further workup -For the meantime, will order chest x ray in AM (3) Weakness: Diffuse, progressive. Etiology unclear. 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 (5) Fever: Source uncelar. ?Diverticulitis noted on CT. Patient with no symmptoms, abdomen benign -Follow cultures -Start Augmentin 500mg po BID (6) Hyperlipidemia LDL goal <70: Chronic. -Continue PRavastatin, Fish oil Ppx - Pepcid, Lovenox Code - DNR Spent 35 minutes in management. this included discussion with family, chart review, conversation with aries and patient encounter and documentation. Subjective Son is at bedside and is updated. Patient has been complaining of intractable hiccups. Patient and son reports they d not follow up with Oncology as there was an issue in the past that they do not want to discuss and only f/u with Oncology [place]. I explained to family that aries called and wanted an MRI of the head with contrast done to assess if tumor has shrunk. Aside from hiccups, patient complains of generalized weakness and intermittent fevers. Review of Systems Review of Systems: All systems reviewed & are unremarkable except as noted in HPI & below Physical Exam Physical Exam: General: patient resting comfortably, NAD, non-toxic in appearance, AA&O x 4 Skin: warm, dry, intact, no rashes or lesions HEENT: NC/AT, PERRL, EOMI, anicteric sclera, conjunctiva without injection, external ear normal to inspection and nontender, nares patent, moist mucus membranes, dentition intact, no oropharyngeal lesions, neck supple, trachea midline, no LAD, no thyromegaly, no JVD, port in place, nontender Heart: +S1/S2, regular, no m/r/g Lungs: equal air entry bilaterally, no rales/rhonchi/wheezes ecept for decreased airways in the bases of the lung. Abd: +BS, soft, NT/ND, no masses/organomegaly/ascites Ext: warm, 2+ pulses in UE/LE bilaterally, no clubbing/cyanosis or edema Neuro: nonfocal, patient AA&O x 4, speech intact, no facial droop, moving all extremities on command with equal strength 5/5 Results & Data Vital Signs (Past 12 Hours) Vital Signs Temp Pulse Pulse Resp BP Pulse Ox 09/26/18 18:59 37.3 C 103 H 18 104/56 L 92 09/26/18 16:00 36.6 C 97 H 94 H 16 103/69 94 09/26/18 13:04 36.8 C 71 116/69 09/26/18 11:53 37.5 C 109 H 18 133/72 91 (1) Fever Fever type: unspecified Qualified Code(s): R50.9 - Fever, unspecified
[2018-09-27] MEDS: GABAPENTIN 100 MG CAP PO SCH ×3 (08:46→21:22)
[2018-09-27] MEDS: AMOXICILLIN/CLAVULANATE 500 MG TAB PO SCH ×2 (08:47→17:45)
[2018-09-27] MEDS: ONDANSETRON 8 MG TABLET PO SCH (08:49)
[2018-09-27] MEDS: LENALIDOMIDE PO SCH (08:50)
[2018-09-27 09:04] LABS: Hematocrit (blood only) 36.2 % (42-52); Hemoglobin 12.7 g/dL (14.0-18.0); Mean Corpuscular Hgb Conc 35.1 g/dL (32-36); Mean Corpuscular Volume 92.6 fL (80-100); Platelet Count 155 K/uL (130-400); RDW Coefficient of Variation 14.9 % (11.5-14.5); RDW Standard Deviation 49.8 fL (36.4-46.3); Red Blood Count 3.91 M/uL (4.7-6.1); White Blood Count 12.51 K/uL (4.8-10.8)
[2018-09-27 09:34] LABS: Basophils # (auto) 0.03 K/uL (0-0.2); Basophils % (auto) 0.2 %; Eosinophils # (auto) 0.03 K/uL (0-0.5); Eosinophils % (auto) 0.2 %; Immature Granulocytes # (auto) 0.26 K/uL (0.00-0.02); Immature Granulocytes % (auto) 2.1 %; Lymphocytes # (auto) 0.83 K/uL (1.2-3.4); Lymphocytes % (auto) 6.6 %; Monocytes # (auto) 0.54 K/uL (0.11-0.59); Monocytes % (auto) 4.3 %; Neutrophils # (auto) 10.82 K/uL (1.4-6.5); Neutrophils % (auto) 86.6 %
[2018-09-27 09:35] LABS: BUN Creatinine Ratio 20.7 (10-20); Calcium 8.2 mg/dl (8.5-10.1); Creatinine Clr Calc Pharmacy 43.9 ml/min; Est GFR (African American) 67.8; Est GFR (Non-African American) 58.5; Potassium 3.9 mmol/L (3.5-5.1)
--- NOTE | 2018-09-27 09:37 | XRay Report ---
XR chest 2V routine CLINICAL HISTORY: 88 years-old Male presenting with hiccups, fever. TECHNIQUE: PA and lateral views of the chest were obtained. COMPARISON: 09/25/2018. FINDINGS: Atherosclerosis of the aortic arch. Cardiac silhouette normal in size. Patchy multifocal ill-defined hazy and reticulonodular opacities bilaterally with a mid to basilar predominance. These are increase d from prior. Trace pleural effusions. No pneumothorax. Degenerative changes of the thoracic spine. E xternal leads overlie the upper abdomen. IMPRESSION: 1. Increasing reticulonodular opacities within the and basilar predominance. Differential considerat ions include multifocal infection, venolymphatic congestive change with developing pulmonary edema, o r aspiration among other etiologies. Consider CT if appropriate. Electronically signed by: Alberto Lynch M.D. 09/27/2018 9:35 AM
[2018-09-27] MEDS: FAMOTIDINE 20 MG TAB PO SCH (10:06)
[2018-09-27] MEDS: OMEGA-3 (PURIFIED FISH OIL) 1 GM CAP PO SCH (10:07)
[2018-09-27] MEDS: ASPIRIN 81 MG ECTAB PO SCH ×2 (10:08→21:22)
[2018-09-27] MEDS: METOPROLOL TARTRATE 25 MG TAB PO SCH ×3 (10:08→21:23)
[2018-09-27] MEDS: SODIUM CHLORIDE 0.9% 1000ML 1,000 ML IV SCH (10:09)
[2018-09-27] MEDS: PANTOprazole 40 MG TAB PO SCH (10:09)
--- NOTE | 2018-09-27 10:58 | Cardiology Progress Note ---
Date of Service September 27, 2018 Assessment & Plan (1) Elevated troponin: Echocardiographic and EKG findings do not suggest an acute myocardial ischemia though demand ischemia not completely excluded given elevated heart rate Continue metoprolol orally. Will reduce hold parameters to allow usage We will supplement potassium Current rhythm sinus with frequent atrial ectopy. Would like to avoid atrial fibrillation if possible (2) Intractable hiccups: Wide differential for patient's events. Myocardial ischemia and atypical inciting cause of hiccups though does not appear to be case. 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 Looks brighter this morning no chest pain or discomfort. Still with hiccups though less profound. Actually slept last night. No productive cough but with low-grade fever. Review of Systems Constitutional: as per Subjective / HPI Physical Exam Constitutional: + thin; not in distress ENMT: external ear and nose normal, oropharynx normal Neck: trachea midline, no thyromegaly Respiratory: normal respiratory effort, lungs clear to auscultation Cardiovascular: Rate/Rhythm: regular rate and + tachycardic Heart Sounds: normal S1 and normal S2 Vessels: no JVD Extremities: no edema (Trace) Gastrointestinal (Abdomen): normal bowel sounds, soft, nontender, no hepatosplenomegaly Results & Data Vital Signs (Past 12 Hours) Vital Signs Temp Pulse Pulse Resp BP Pulse Ox 09/27/18 10:10 64 94/62 L 09/27/18 07:15 36.8 C 90 22 90/60 L 94 09/27/18 07:00 103 H 09/26/18 23:17 36.3 C L 74 20 129/81 92 Laboratory Results Laboratory Results - last 24 hr 09/26/18 09/27/18 09/27/18 15:34 08:46 08:46 WBC 12.51 H RBC 3.91 L Hgb 12.7 L Hct 36.2 L MCV 92.6 MCH 32.5 MCHC 35.1 RDW Std Deviation 49.8 H RDW Coeff of Marck 14.9 H Plt Count 155 MPV 11.0 H Immature Gran % (Auto) 2.1 Neut % (Auto) 86.6 Lymph % (Auto) 6.6 [place] % (Auto) 4.3 Eos % (Auto) 0.2 Baso % (Auto) 0.2 Immature Gran # (Auto) 0.26 H Neut # (Auto) 10.82 H Lymph # (Auto) 0.83 L [place] # (Auto) 0.54 Eos # (Auto) 0.03 Baso # (Auto) 0.03 Sodium 132 L Potassium 3.9 Chloride 100 Carbon Dioxide 27 Anion Gap 5.0 BUN 23 H Creatinine 1.13 Est Cr Clr Drug Dosing 43.9 Est GFR ( Amer) 67.8 Est GFR (Non-Af Amer) 58.5 BUN/Creatinine Ratio 20.7 H Glucose 128 H Calcium 8.2 L Procalcitonin Urine Color Dark Yellow Urine Appearance Clear Urine pH 6.0 Ur Specific [place] 1.022 Urine Protein Trace H Urine Glucose (UA) Negative Urine Ketones Negative Urine Blood Negative Urine Nitrite Negative Urine Bilirubin Negative Urine Urobilinogen Negative Ur Leukocyte Esterase Negative Urine WBC (Auto) 5-10 H Urine RBC (Auto) 5-10 H U Hyaline Cast (Auto) 1-5 U Epithel Cells (Auto) >30 H Urine Bacteria (Auto) Negative Urine Mucus Present A 09/27/18 08:46 WBC RBC Hgb Hct MCV MCH MCHC RDW Std Deviation RDW Coeff of Marck Plt Count MPV Immature Gran % (Auto) Neut % (Auto) Lymph % (Auto) [place] % (Auto) Eos % (Auto) Baso % (Auto) Immature Gran # (Auto) Neut # (Auto) Lymph # (Auto) [place] # (Auto) Eos # (Auto) Baso # (Auto) Sodium Potassium Chloride Carbon Dioxide Anion Gap BUN Creatinine Est Cr Clr Drug Dosing Est GFR ( Amer) Est GFR (Non-Af Amer) BUN/Creatinine Ratio Glucose Calcium Procalcitonin 0.33 Urine Color Urine Appearance Urine pH Ur Specific [place] Urine Protein Urine Glucose (UA) Urine Ketones Urine Blood Urine Nitrite Urine Bilirubin Urine Urobilinogen Ur Leukocyte Esterase Urine WBC (Auto) Urine RBC (Auto) U Hyaline Cast (Auto) U Epithel Cells (Auto) Urine Bacteria (Auto) Urine Mucus
[2018-09-27] MEDS ORDERED: POTASSIUM CHLORIDE 10 MEQ TABCR PO ONE (11:45)
[2018-09-27] MEDS: ENOXAPARIN INJ 40 MG/0.4 ML SYR SQ SCH (21:23)
--- NOTE | 2018-09-27 23:11 | Hospitalist Progress Note ---
Date of Service September 27, 2018 Assessment & Plan (1) Elevated troponin: No CP -Check 2 D echo -Trend troponin -Consulted cardio: appreciate input Echocardiographic and EKG findings do not suggest an acute myocardial ischemia though demand ischemia not completely excluded given elevated heart rate Patient the past of been on Toprol Will resume beta-lavon cautiously with metoprolol tartrate 12.5 mg 3 times daily (2) Intractable hiccups: Thorazine started outpatient with increased fatigue. May be secondary to medication side effects, Dexamethasone -Neurontin 100mg po TID, may increase dose as tolerated -Many explanations for hiccups. -Doubt steroids were playing a role. Will restart steroids in AM. Spoke with Dr. Hernandez. (3) Weakness: Diffuse, progressive. Etiology unclear. 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 (5) Fever: Source uncelar. ?Diverticulitis noted on CT. Patient with no symmptoms, abdomen benign -Follow cultures -Start Augmentin 500mg po BID (6) Hyperlipidemia LDL goal <70: Chronic. -Continue PRavastatin, Fish oil Ppx - Pepcid, Lovenox Code - DNR Spent 35 minutes in management. this included discussion with family, chart review, conversation with aries and patient encounter and documentation. D/W Dr. Hernandez from [place]. Copied MRI. Patient may need placement for prison. Subjective 88 yo male continues to be having hiccups throughout the day. Today he is a poor historian. His son inquires about being put back on steroids. He states that it has been a week since he was on it and it was stopped due to his hiccups. The hiccups have not improved since it was stopped. Review of Systems Review of Systems: All systems reviewed & are unremarkable except as noted in HPI & below Physical Exam Physical Exam: General: patient resting comfortably, NAD, non-toxic in appearance, AA&O x 4 Skin: warm, dry, intact, no rashes or lesions HEENT: NC/AT, PERRL, EOMI, anicteric sclera, conjunctiva without injection, external ear normal to inspection and nontender, nares patent, moist mucus membranes, dentition intact, no oropharyngeal lesions, neck supple, trachea midline, no LAD, no thyromegaly, no JVD, port in place, nontender Heart: +S1/S2, regular, no m/r/g Lungs: equal air entry bilaterally, no rales/rhonchi/wheezes except for decreased airways in the bases of the lung. Abd: +BS, soft, NT/ND, no masses/organomegaly/ascites Ext: warm, 2+ pulses in UE/LE bilaterally, no clubbing/cyanosis or edema Neuro: nonfocal, patient AA&O x 4, speech intact, no facial droop, moving all extremities on command with equal strength 5/5 Results & Data Vital Signs (Past 12 Hours) Vital Signs Temp Pulse Pulse Resp BP BP Pulse Ox 09/27/18 22:50 36.7 C 86 20 137/73 94 09/27/18 19:03 37.1 C 101 H 21 116/73 95 09/27/18 16:00 93 H 09/27/18 15:23 36.9 C 89 21 100/63 94 09/27/18 11:16 63 106/68 (1) Fever Fever type: unspecified Qualified Code(s): R50.9 - Fever, unspecified
[2018-09-28] MEDS: SODIUM CHLORIDE 0.9% 1000ML 1,000 ML IV SCH ×2 (03:40→16:59)
[2018-09-28 06:25] LABS: Hematocrit (blood only) 33.7 % (42-52); Mean Corpuscular Hgb Conc 35.6 g/dL (32-36); Mean Corpuscular Volume 91.6 fL (80-100); Mean Platelet Volume 11.2 fL (7.4-10.4); Platelet Count 131 K/uL (130-400); RDW Coefficient of Variation 14.9 % (11.5-14.5); RDW Standard Deviation 49.9 fL (36.4-46.3); Red Blood Count 3.68 M/uL (4.7-6.1); White Blood Count 10.61 K/uL (4.8-10.8)
[2018-09-28 07:08] LABS: Creatinine Clr Calc Pharmacy 67.9 ml/min; Est GFR (African American) 97.3
[2018-09-28] MEDS ORDERED: predniSONE 20 MG TAB PO STA (09:02)
[2018-09-28] MEDS: AMOXICILLIN/CLAVULANATE 500 MG TAB PO SCH ×2 (09:24→17:23)
[2018-09-28] MEDS: METOPROLOL TARTRATE 25 MG TAB PO SCH ×3 (09:25→21:07)
[2018-09-28] MEDS: ASPIRIN 81 MG ECTAB PO SCH ×2 (09:25→21:07)
[2018-09-28] MEDS: GABAPENTIN 100 MG CAP PO SCH ×3 (09:26→21:07)
[2018-09-28] MEDS: OMEGA-3 (PURIFIED FISH OIL) 1 GM CAP PO SCH (09:26)
[2018-09-28] MEDS: PANTOprazole 40 MG TAB PO SCH (09:27)
[2018-09-28] MEDS: FAMOTIDINE 20 MG TAB PO SCH (09:27)
[2018-09-28] MEDS: LENALIDOMIDE PO SCH (09:42)
[2018-09-28] MEDS: ONDANSETRON 8 MG TABLET PO SCH ×2 (09:43→20:24)
--- NOTE | 2018-09-28 11:59 | Cardiology Progress Note ---
Date of Service September 28, 2018 Assessment & Plan (1) Elevated troponin: Echocardiographic and EKG findings do not suggest an acute myocardial ischemia though demand ischemia not completely excluded given elevated heart rate Continue metoprolol orally. Will reduce hold parameters to allow usage We will supplement potassium Current rhythm sinus with frequent atrial ectopy. Would like to avoid atrial fibrillation if possible ok to d/c tele from cardiac standpoint (2) Intractable hiccups: Wide differential for patient's events. Myocardial ischemia and atypical inciting cause of hiccups though does not appear to be case. 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 Denies cp, sob, palpitations, lightheadedness or dizziness. tele reviewed: sinus rhythm without arrhythmia or significant ectopy. Review of Systems Review of Systems: All systems reviewed & are unremarkable except as noted in HPI & below Physical Exam Physical Exam: General: Awake, alert and oriented x 3. No acute distress. hiccuping. HEENT: Normocephalic, atraumatic. Pupils equal, round and reactive to light and accommodation. Extraocular muscles are intact. Anicteric sclera. Moist mucous membranes. Neck: No JVD. No bruit. Cardiovascular: Regular. Positive S-4. Normal S-1 and S-2. No S-3. No murmurs or rubs. Pulmonary: Clear to auscultation B/L. No rales, rhonchi or wheezing Abdomen: Bowel sounds x 4, soft. No rebound, guarding or tenderness. No organomegaly. Extremities: No clubbing, cyanosis or edema. +2 pedal pulses bilaterally. Skin: Warm and dry. Results & Data Vital Signs (Past 12 Hours) Vital Signs Temp Pulse Pulse Resp BP BP Pulse Ox 09/28/18 11:53 37.1 C 106 H 18 108/69 97 09/28/18 09:01 37.2 C 120 H 20 131/72 96 09/28/18 04:02 37.6 C H 102 H 16 131/72 94
[2018-09-28] MEDS: LENALIDOMIDE 25 MG PO SCH (21:08)
[2018-09-28] MEDS: ENOXAPARIN INJ 40 MG/0.4 ML SYR SQ SCH (21:11)
--- NOTE | 2018-09-28 23:46 | Hospitalist Progress Note ---
Date of Service September 28, 2018 Assessment & Plan (1) Elevated troponin: No CP -Check 2 D echo -Trend troponin -Consulted cardio: apprecate input Echocardiographic and EKG findings do not suggest an acute myocardial ischemia though demand ischemia not completely excluded given elevated heart rate Patient the past of been on Toprol Will resume beta-lavon cautiously with metoprolol tartrate 12.5 mg 3 times daily HR is better controlled. (2) Intractable hiccups: Thorazine started outpatient with increased fatigue. May be secondary to medication side effects, Dexamethasone -Neurontin 100mg po TID, may increase dose as tolerated -Consider CT chest for further workup On 09/28 Hicccups have improved. Patient overall status has also improved. He appears to be more active after receiving prednisone 20 mg. Will repeat dose in AM. PT/OT also ordered (3) Weakness: Diffuse, progressive. Etiology unclear. -Optimize electrolytes -PT/OT assessment -Ambulation as tolerated Improved after prednisone. Will ambulate tomorrow. 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 ?Diverticulitis noted on CT. Patient with no symmptoms, abdomen benign -Follow cultures -Start Augmentin 500mg po BID (6) Hyperlipidemia LDL goal <70: Chronic. -Continue PRavastatin, Fish oil Ppx - Pepcid, Lovenox Code - DNR Spent 25 minutes in management. Subjective Patient appears to be more active today. He is seated in a chair having lunch. Patient reports having more energy today. He denies any new complaints. His son does not believe he is strong enough to go home yet. His hiccups have also improved today. Review of Systems Review of Systems: All systems reviewed & are unremarkable except as noted in HPI & below Physical Exam Physical Exam: General: patient resting comfortably, NAD, non-toxic in appearance, AA&O x 4 Skin: warm, dry, intact, no rashes or lesions HEENT: NC/AT, PERRL, EOMI, anicteric sclera, conjunctiva without injection, no LAD, no thyromegaly, no JVD, port in place, nontender Heart: +S1/S2, regular, no m/r/g Lungs: equal air entry bilaterally, no rales/rhonchi/wheezes except for decreased airways in the bases of the lung. Abd: +BS, soft, NT/ND, no masses/organomegaly/ascites Ext: warm, 2+ pulses in UE/LE bilaterally, no clubbing/cyanosis or edema Neuro: nonfocal, patient AA&O x 4, speech intact, no facial droop, moving all extremities on command with equal strength 5/5 Results & Data Vital Signs (Past 12 Hours) Vital Signs Temp Pulse Pulse Resp BP BP Pulse Ox 09/28/18 23:15 83 09/28/18 22:56 36.5 C 81 18 108/69 95 09/28/18 22:55 89 L 09/28/18 20:21 89 97/65 L 94/66 L 09/28/18 20:03 36.4 C L 74 18 86/57 L 95 09/28/18 16:32 36.5 C 80 18 106/72 94 09/28/18 11:53 37.1 C 106 H 18 108/69 97 (1) Fever Fever type: unspecified Qualified Code(s): R50.9 - Fever, unspecified
[2018-09-29] MEDS: SODIUM CHLORIDE 0.9% 1000ML 1,000 ML IV SCH ×2 (06:24→22:02)
[2018-09-29] MEDS: AMOXICILLIN/CLAVULANATE 500 MG TAB PO SCH ×2 (08:16→17:42)
[2018-09-29] MEDS: ASPIRIN 81 MG ECTAB PO SCH ×2 (08:17→21:19)
[2018-09-29] MEDS: METOPROLOL TARTRATE 25 MG TAB PO SCH ×3 (08:17→21:19)
[2018-09-29] MEDS: GABAPENTIN 100 MG CAP PO SCH ×3 (08:19→21:19)
[2018-09-29] MEDS: OMEGA-3 (PURIFIED FISH OIL) 1 GM CAP PO SCH (08:21)
[2018-09-29] MEDS: FAMOTIDINE 20 MG TAB PO SCH (08:24)
[2018-09-29] MEDS: PANTOprazole 40 MG TAB PO SCH (08:25)
[2018-09-29] MEDS: predniSONE 20 MG TAB PO SCH (09:58)
--- NOTE | 2018-09-29 13:58 | Hospitalist Progress Note ---
Date of Service September 29, 2018 Assessment & Plan (1) Elevated troponin: No CP -Check 2 D echo -Trend troponin -Consulted cardio: appreciate input Echocardiographic and EKG findings do not suggest an acute myocardial ischemia though demand ischemia not completely excluded given elevated heart rate Patient the past of been on Toprol Will resume beta-lavon cautiously with metoprolol tartrate 12.5 mg 3 times daily HR is better controlled. (2) Intractable hiccups: Thorazine started outpatient with increased fatigue. May be secondary to medication side effects, Dexamethasone -Neurontin 100mg po TID, may increase dose as tolerated -Consider CT chest for further workup On 09/29 Hicccups have improved. Patient only had one hiccup today. Patient overall status has also improved. He appears to be more active after receiving prednisone 20 mg. On prednisone daily (started 09/28) will continue until seen by onc at [place]. May consider tapering slowly after a week. PT/OT also ordered (3) Weakness: Diffuse, progressive. Etiology unclear. -Optimize electrolytes -PT/OT assessment -Ambulation as tolerated: [place] with son today. Tapered off nasal cannula today. Will reassess in AM. 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 ?Diverticulitis noted on CT. Patient with no symmptoms, abdomen benign -Follow cultures -Start Augmentin 500mg po BID (6) Hyperlipidemia LDL goal <70: Chronic. -Continue PRavastatin, Fish oil Ppx - Pepcid, Lovenox Code - DNR Spent 25 minutes in management. DISPO: Home with home services. Son providing care. Subjective 88 yo male reports being more active today. He has been ambulating the halls with his son His son reports that he is stronger but not ready to go home today. He reports that his hiccups have improved. Yesterday he had a series of hiccups after breakfast which lasted minutes but today he only hiccuped once, literally. He did not have a series of hiccups today. He is tolerating his diet. Review of Systems Review of Systems: All systems reviewed & are unremarkable except as noted in HPI & below Physical Exam Physical Exam: General: patient resting comfortably, NAD, non-toxic in appearance, AA&O x 4 Skin: warm, dry, intact, no rashes or lesions HEENT: NC/AT, PERRL, EOMI, anicteric sclera, conjunctiva without injection, no LAD, no thyromegaly, no JVD, port in place, nontender Heart: +S1/S2, regular, no m/r/g Lungs: equal air entry bilaterally, no rales/rhonchi/wheezes except for decreased airways in the bases of the lung. Abd: +BS, soft, NT/ND, no masses/organomegaly/ascites Ext: warm, 2+ pulses in UE/LE bilaterally, no clubbing/cyanosis or edema Neuro: nonfocal, patient AA&O x 4, speech intact, no facial droop, moving all extremities on command with equal strength 5/5 Results & Data Vital Signs (Past 12 Hours) Vital Signs Temp Pulse Resp BP Pulse Ox 09/29/18 08:14 93 09/29/18 08:06 36.8 C 95 H 20 129/78 90 09/29/18 04:23 36.4 C L 80 20 145/77 H 94 (1) Fever Fever type: unspecified Qualified Code(s): R50.9 - Fever, unspecified
[2018-09-29] MEDS: ONDANSETRON 8 MG TABLET PO SCH (20:45)
[2018-09-29] MEDS: ENOXAPARIN INJ 40 MG/0.4 ML SYR SQ SCH (21:20)
[2018-09-29] MEDS: LENALIDOMIDE 25 MG PO SCH (21:20)
[2018-09-29] MEDS ORDERED: PROMETHAZINE HCL 6.25 MG in SODIUM CHLORIDE 0.9% 50 ML IV PRN (23:25)
[2018-09-30] MEDS: OMEGA-3 (PURIFIED FISH OIL) 1 GM CAP PO SCH (07:40)
[2018-09-30] MEDS: ASPIRIN 81 MG ECTAB PO SCH (07:41)
[2018-09-30] MEDS: predniSONE 20 MG TAB PO SCH (07:41)
[2018-09-30] MEDS: AMOXICILLIN/CLAVULANATE 500 MG TAB PO SCH (07:41)
[2018-09-30] MEDS: METOPROLOL TARTRATE 25 MG TAB PO SCH ×2 (07:42→13:43)
[2018-09-30] MEDS: GABAPENTIN 100 MG CAP PO SCH ×2 (07:42→13:43)
[2018-09-30] MEDS: PANTOprazole 40 MG TAB PO SCH (07:42)
[2018-09-30] MEDS: FAMOTIDINE 20 MG TAB PO SCH (07:43)
[2018-09-30] MEDS ORDERED: Nursing to Pharmacy Communication ONE (07:45)
--- NOTE | 2018-09-30 08:13 | Hospitalist Progress Note ---
Date of Service September 30, 2018 Assessment & Plan (1) Elevated troponin: No CP Echocardiographic and EKG findings do not suggest an acute myocardial ischemia thought to be demand ischemia Will resume beta-lavon cautiously with metoprolol tartrate 12.5 mg 3 times daily HR is better controlled. (2) Intractable hiccups: Thorazine started outpatient with increased fatigue. May be secondary to medication side effects, Dexamethasone -Neurontin 100mg po TID, may increase dose as tolerated -Consider CT chest for further workup On 09/29 Hicccups have improved. Patient only had one hiccup today. Patient overall status has also improved. He appears to be more active after receiving prednisone 20 mg. On prednisone daily (started 09/28) will continue until seen by onc at [place]. May consider tapering slowly after a week. PT/OT also ordered (3) Weakness: Diffuse, progressive. Etiology unclear. -Optimize electrolytes -PT/OT assessment -Ambulation as tolerated: [place] with son today. Tapered off nasal cannula today. Will reassess in AM. 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 ?Diverticulitis noted on CT. Patient with no symmptoms, abdomen benign -Follow cultures -Start Augmentin 500mg po BID (6) Hyperlipidemia LDL goal <70: Chronic. -Continue PRavastatin, Fish oil Ppx - Pepcid, Lovenox Code - DNR Spent 25 minutes in management. DISPO: Home with home services. Son providing care. Results & Data Vital Signs (Past 12 Hours) Vital Signs Temp Pulse Pulse Resp BP BP Pulse Ox 09/30/18 07:28 36.8 C 89 16 101/62 95 09/30/18 03:14 71 09/30/18 00:28 36.7 C 80 20 108/62 91 (1) Fever Fever type: unspecified Qualified Code(s): R50.9 - Fever, unspecified
--- NOTE | 2018-09-30 17:02 | Discharge Summary ---
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 Patient follows at [facility] for intrathecal chemotherapy, next appointment is Sunday. Patient had fever this AM to 101.2. He was given Tylenol which improved fever. Also with progressive weakness and decreased oral intake. Family comments on overall decline in quality of life. Patient with no specific complaints, denies CHAUDHARY, visual changes, ear pain, facial/dental pain, pain with swallowing, CP/SOB/abdominal pain, n/v/d/ or c. No wounds/rashes or arthritis/arthralgias. Patient has had extensive workup for FUO which has been unrevealing. Additionally patient with 3-4 days of persistent hiccups. He was seen outpatient two days ago and prescribed Thorazine. Since taking that medication he has become quite somnolent. He has been unable to sleep secondary to hiccups. Additionally patient found to have elevated troponin. Denies CP/palpitations/SOB ER Course: NSS x 1 liter, Gabapentin Principal Diagnosis diverticulitis hiccups Discharge Exam The patient appeared well nourished and normally developed. Vital signs as documented. Little to no neurological deficits that I can see Neck is without jugular venous distension, thyromegaly, or lymphademopathy Lungs are clear to auscultation and percussion. Cardiac exam reveals Rhythm is regular. First and second heart sounds normal. Abdominal exam reveals normal bowel sounds, no masses, no organomegaly Discharge Data Allergies Allergy/AdvReac Type Severity Reaction Status Date / Time Ndgugpe-Mmk-Bow Reductase Allergy Unknown CRESTOR,LIPITOR,ZOCOR-MUSCLE Verified 09/25/18 16:40 Inhibitor ACHES Consultations 09/25/18 16:43 ED Decision to Admit Stat 09/25/18 18:49 Consult Case Management - Discharge Planning Routine 09/26/18 07:29 Consult Cardiology Routine 09/27/18 13:41 Burn CD for patient Stat Ordered Studies 09/25/18 13:41 CT head/brain wo con Stat 09/25/18 18:49 CT abd pelvis wo con Daily 09/26/18 18:16 MR brain wo/w con Routine Hospital Course (1) Elevated troponin: No CP Echocardiographic and EKG findings do not suggest an acute myocardial ischemia thought to be demand ischemia Will resume beta-lavon cautiously with change metoprolol succinate 25 mg am (2) Intractable hiccups: Thorazine started outpatient with increased fatigue. May be secondary to medication side effects, Dexamethasone On 09/29 Hicccups have improved. after starting prednisone Patient overall status has also improved. will continue until seen by onc at [facility]. son is anxious to have patient return to home (3) Weakness: [place] halls with son Tapered off nasal cannula (4) Primary [employer] lymphoma: Stable -Continue Revlimid (5) Fever: Source uncelar. ?Diverticulitis noted on CT. complete 14 days of Augmentin 500mg po BID (6) Hyperlipidemia LDL goal <70: Chronic. -Continue PRavastatin, Fish oil Ppx - Pepcid, Lovenox Code - DNR Total Time Total Time Spent Total Time Spent (In Minutes): greater than 30 minutes were required to prepare discharge Discharge Plan Discharge Items Patient Disposition: Home - Home Health Services Reason For Visit: HICCUPS,FEVER Discharge Diagnosis: diverticulitis( inflamed colon with possible infection) hiccups Discharge Goals: Decrease discomfort and Diagnostic testing Activity: Resume your previous activity Non-emergency contact: Primary Care Provider and Oncologist Call non-emergency contact if: you have any medication questions Follow-up/Referrals: Chaparro Corona MD [Primary Care Provider] - 10/01/18 7:30 am (Please, follow up at Dr. Corona's office with his associate, Ina THORNTON, on SundayOctober 01 at 7:30 am. *If you need to change this appointment, call the office at [phone].) Diet: Regular Addtl Provider Instructions: please follow up with Dr Hernandez you had been started on a medication to help your blood pressure and heart rate, this will be converted to a once a day extended release medicine starting tomorrow 10/01/18, its metoprolol xl 25 mg Prescriptions: New prednisone 20 mg Tablet 20 mg PO DAILY Qty: 30 RF: 0 amoxicillin-pot clavulanate 500-125 mg Tablet 1 tab PO BIDM Qty: 20 RF: 0 metoprolol succinate 25 mg capsule,sprinkle,ER 24hr 25 mg PO DAILY Qty: 30 RF: 5 Continued ondansetron HCl [Zofran] 8 mg Tablet 8 mg PO QAM RF: 0 ondansetron HCl [Zofran] 8 mg Tablet 8 mg PO UD PRN (Reason: Nausea) RF: 0 aspirin 81 mg Tablet,Delayed Release (Dr/Ec) 81 mg PO BID RF: 0 famotidine 20 mg Tablet 20 mg PO DAILY RF: 0 Revlimid 25 mg Capsule 25 mg PO DAILY RF: 0 omeprazole 20 mg Tablet,Delayed Release (Dr/Ec) 20 mg PO DAILY RF: 0 omega 0-xol-ctv-fish oil [Fish Oil] 1,000 mg (120 mg-180 mg) Capsule 1 cap PO DAILY RF: 0 Stand-Alone Forms: [facility] Discharge Orders: Discharge Order (Routine); Ordered 09/30/18 Ordered By: Fritz Calle Admission Data Admit Date/Time: 09/25/18 17:14 Attending Provider: Fritz Calle Admit Provider: Hilaria Vail Primary Care Provider: Chaparro Corona Other Providers: Hilaria Vail ; Chaparro Mancia ; Griffin Cota Service: Telemetry Medical Other Interventions: Discharge Summary Assessment (RN) Last Done: 09/30/18 13:18 DC Date/Time DO NOT enter until pt leaves facility: 09/30/18 14:11
--- NOTE | 2018-10-04 10:01 | Coding Query ---
CODING QUERY To promote full compliance with coding requirements relating to patient care, provider participation is requested in all cases of printed circuit board panels deburrer uncertainty. Please assist us with the question(s) below: Coding Question(s): 1. The ER H&P documents, "CT scan of the brain reveals some mild vasogenic edema around the site of the tumor otherwise no acute abnormalities" and there is history of vasogenic edema documented. There is documentation on the Cardiology Consultation and in Cardiology Progress Notes of, "Increased intracranial pressure a concern". It is unclear if there was monitoring or medication treatment during this admission for the Vasogenic Edema. Please clarify below, in your clinical opinion, regarding the Vasogenic Edema. ( ) Vasogenic Edema was treated and/or monitored during this admission ( XXX) Vasogenic Edema was Not treated and/or monitored during this admission 2. Intractable Hiccups are documented. Cardiology Consultation and Cardiology Progress Notes regarding the Intractable Hiccups document that Increased Intracranial Pressure a concern and Discharge Summary documents regarding Intractable Hiccups, "Thorazine started outpatient with increased fatigue. May be secondary to medication side effects, Dexamethasone" and also documents, "On 09/29 Hicccups have improved. after starting prednisone". Please clarify below, in your clinical opinion, regarding the most likely etiology of the Hiccups. ( ) Increased Intracranial Pressure is the most likely source of the Hiccups. Please specify below regarding the Intracranial Pressure. ( ) Increased Intracranial Pressure is from Vasogenic Edema ( ) Increased Intracranial Pressure is from Other: Please Specify ( ) Increased Intracranial Pressure is from Unknown etiology ( ) Medication is the most likely source of the Hiccups. ( ) Both the Intracranial Pressure and Medication are equally sources of the Hiccups. Please specify below regarding the Intracranial Pressure. ( ) Increased Intracranial Pressure is from Vasogenic Edema ( ) Increased Intracranial Pressure is from Other: Please Specify ( ) Increased Intracranial Pressure is from Unknown etiology ( XXX ) There is no known likely etiology for the Hiccups. ( ) Other Etiology of Hiccups. Please Specify Physician's Response(s): Thank you Adamaris Yuan Principal Diagnosis: "that condition established after study, to be chiefly responsible for occasioning the admission of the patient to the hospital for care." Co-Existing Principal Diagnosis: "when two or more diagnoses equally meet the criteria for principal diagnosis as determined by the circumstances of admission, diagnostic work up, and/or therapy provided, and the Alphabetic Index, Tabular List, or another coding guideline does not provide sequencing direction, any one of the diagnoses may be sequenced first." "When the physician has documented what appears to be a current diagnosis in the body of the record, but has not included the diagnosis in the final diagnostic statement, the physician should be asked whether the diagnosis should be added." (Source [facility]oding [facility] 2 QTR90. p3-4) BLAYNE
== END 2018-09-30 14:11 | disposition home health service (06) | DRG 204 ==
LOC: ED 13:29 → 2N 17:14 → SUATTDRO 17:14 → 2N 18:00